=== PATIENT | female | born 1970 | race Caucasian/White ===

== ENCOUNTER → 2020-03-24 15:51 | Outpatient (CLI) | payer OTHER, SELFPAY ==
--- NOTE | ~2020-03-24 | XR_ITS ---
EXAMINATION: XR chest 2V DATE: 03/24/2020 16:12 INDICATION: Shortness of breath TECHNIQUE: Frontal and lateral views of the chest are obtained COMPARISON: 05/02/2015 FINDINGS: The lungs are free of acute opacities. There is no pleural effusion or pneumothorax. The ca rdiomediastinal silhouette is normal. There are changes of anterior fusion procedure at the cervicoth oracic junction. Mild thoracic spondylosis is noted. IMPRESSION: 1. No acute cardiopulmonary abnormality. Reviewed, dictated and finalized at location A. LIDDER
== END ==
DX: R06.00 Dyspnea, unspecified (principal)
CPT/HCPCS: 71046

== ENCOUNTER 2020-06-15 09:25 | Inpatient (IN) | payer OTHER, SELFPAY ==
[2020-06-15] VITALS (13 sets, daily range): BP systolic 78–128; BP diastolic 49–87; PULSE 73–103; RESP 15–19; TEMP 36.3–37; O2SAT 95–99; BMI 24.1
--- NOTE | ~2020-06-15 | XR_ITS ---
EXAMINATION: XR chest 1V DATE: 06/15/2020 10:20 INDICATION: Transient alteration of awareness. TECHNIQUE: A single frontal view of the chest was obtained. COMPARISON: Chest single view 09/03/2011, CT abdomen and pelvis 03/21/2018 FINDINGS: The chest demonstrates clear lungs without pneumonia, pleural effusion, or pneumothorax. Th e heart size is normal. There are changes of anterior fusion procedure in cervical spine. Surgical cl ips in the right upper quadrant are likely from cholecystectomy. IMPRESSION: 1. No acute cardiopulmonary disease. Reviewed, dictated and finalized at location A.
--- NOTE | ~2020-06-15 | CT_ITS ---
EXAMINATION: CT brain wo con INDICATION: Altered mental status COMPARISON: MRI, 10/18/2016 TECHNIQUE: Standard unenhanced head CT. The dose-length product (DLP) was 605.33 mGy-cm. The mA was a djusted according to patient size. Iterative reconstruction technique was employed. FINDINGS: There is no intracranial hemorrhage, acute infarction, or abnormal mass lesion. The ventric les are normal. There is no abnormal mass effect or midline shift. The johnson-white matter differentiat ion is normal. The basal cisterns are patent. The orbits are normal. The paranasal sinuses, mastoids and calvarium are normal. IMPRESSION: 1. No acute intracranial abnormality. Reviewed, dictated and finalized at location B.
--- NOTE | ~2020-06-15 | US_ITS ---
EXAMINATION: US renal BI DATE: 06/15/2020 15:17 INDICATION: Acute kidney injury TECHNIQUE: Multiple grayscale and Doppler ultrasound images of the kidneys were obtained. COMPARISON: None. FINDINGS: The right kidney measures 12.9 x 5.8 x 5.0 cm. The left kidney measures 12.4 x 5.7 x 6.1 cm . The kidneys demonstrate normal parenchymal echogenicity. There is no hydronephrosis. The bladder is normal. IMPRESSION: 1. Normal kidneys without hydronephrosis. Reviewed, dictated and finalized at location B.
--- NOTE | 2020-06-15 09:32 | ECG_ITS ---
Measurements Intervals [place] Rate: 101 P: 21 OH: 116 QRS: -9 QRSD: 104 T: 17 QT: 376 QTc: 487 Interpretive Statements SINUS TACHYCARDIA INCOMPLETE RIGHT BUNDLE BRANCH BLOCK BASELINE ARTIFACT- I, II, III, AVR, AVL, AVF BORDERLINE ECG Electronically Signed On 06-15-2020 9:34:14 CDT by Alex Marie D.O.
[2020-06-15 09:50] LABS: Hematocrit 34.3 % (37.0-47.0); Hemoglobin 13.2 g/dL (12.0-15.0); Mean Corpuscular Hemoglobin 35.8 pg (26-34); Platelet Count Result 188 k/mm3 (150-375); Red Blood Count 3.69 M/mm3 (4.2-5.4); White Blood Count 11.2 K/mm3 (4.5-10.0)
[2020-06-15 10:00] LABS: Mean Corpuscular HGB Conc 38.5 g/dl (32-36)
--- NOTE | 2020-06-15 10:00 | ED.AMS ---
HPI - Altered Mental Status General Chief Complaint: Altered Mental Status Stated Complaint: confused Time Seen by Provider: 06/15/20 09:43 Source: patient and family Mode of arrival: EMS Limitations: altered mental status History of Present Illness HPI narrative: This is a 49 year old female with history of depression, anxiety, RA who presents for evaluation of altered mental status. Patient's is at bedside to give history . He states his daughter found patient laying in bed unresponsive but breathing. They reports her eyes were open and she was staring but she would not respond to them. They did not see convulsions. EMS states patient was combative on their arrival. Patient's states over the past week she has not felt well. She has chronic GI issues and she has been having vomiting and headaches. She denies chest pain, sob, abdominal pain. She reports a mild frontal headache, but she denies focal weakness. Patient is oriented to person and place but she is unable to state her age or year. Her family denies history of seizures. He does report patient drinks almost daily but she does not have history of alcohol withdrawal. Related Data Home Medications Medication Instructions Recorded Confirmed adalimumab [Humira Pen] mg SUBCUT 06/15/20 albuterol sulfate [Ventolin HFA] 2 puff INHALATION Q4-6H PRN 06/15/20 06/15/20 amoxicillin 500 mg PO TID 06/15/20 06/15/20 azelastine 1 spray INTRANASAL DAILY 06/15/20 06/15/20 bupropion HCl 300 mg PO DAILY 06/15/20 06/15/20 colestipol 1 g PO BID 06/15/20 06/15/20 hydroxychloroquine 200 mg PO BID 06/15/20 06/15/20 irbesartan 75 mg PO HS 06/15/20 06/15/20 raoeuk-ndajihss-[id number] [Creon] 1 cap PO TIDWM 06/15/20 06/15/20 ondansetron HCl 4 mg PO BID PRN 06/15/20 06/15/20 Allergies Allergy/AdvReac Type Severity Reaction Status Date / Time No Known Allergies Allergy Verified 06/15/20 15:48 Review of Systems Review of Systems: All systems reviewed & are unremarkable except as noted in HPI and below Cardiovascular: Cardiovascular: Denies chest pain Respiratory: Respiratory: Denies cough Gastrointestinal: Gastrointestinal: Denies abdominal pain, Reports nausea and Reports vomiting Neurologic: Reports headache(s), Denies focal weakness and Denies numbness PMFSH Past Medical History Medical History (Updated 06/15/20 @ 18:48 by Krystle Palacio MD) Alcohol abuse Anxiety Chronic pain syndrome Chronic neck and back pain. Depression Hypertension Pancreatitis (~03/2018) Rheumatoid arthritis Surgical History Surgical History (Updated 06/15/20 @ 14:26 by Vilma Bhatt PA-C) History of appendectomy Complicated by abscess requiring drainage. History of arthroscopy of right knee History of cholecystectomy History of dilation and curettage History of fusion of cervical spine History of fusion of lumbar spine History of sinus surgery Family History Family History Other Breast cancer Diabetes mellitus Heart disease Hypertension Social History Social History (Updated 06/15/20 @ 14:46 by Vilma Bhatt PA-C) Social History: Surrogate decision maker: Lito Taylor . Code status: Full code. Smoking packs per day: 1 Smoking cigarettes per day: 20.0 Years smoked: 20 Smoking pack-years: 20.00 Smoking status: Former smoker Tobacco type: cigarettes Alcohol intake: current Drinks per week: 32 Substance use: former Substance use type: marijuana Other substance usage details: Medical marijuana. Additional living arrangements comments: Patient lives with her in [place]. Additional occupation/education comments: She does not work outside of the home. Gender identity (if verbalized by the patient): Female Spiritual care concerns: No Exam Const: General: alert Other: patient slow to respond but able to state name, place. H
--- NOTE | 2020-06-15 10:10 | PC.NURSE ---
Blood glucose was 176 at 10:10
[2020-06-15] MEDS: SODIUM CHLORIDE 0.9% IV 1,000 ML 999 ML IV CONT (10:11)
[2020-06-15 10:13] LABS: Glucose Point of Care 176 (65-105)
[2020-06-15 10:14] LABS: Atypical Lymphocytes Present; Band Neutrophils Percent 1 % (0-6); Eosinophils Absolute Manual 0.33 K/mm3 (0.02-0.5); Eosinophils Percent Manual 3 % (0-4); Monocytes Absolute Manual 0.67 K/mm3 (0.1-0.90); Monocytes Percent Manual 6 % (3-9); Neutrophils Absolute Manual 6.38 K/mm3 (1.7-7.2); Neutrophils Percent Manual 56 % (46-73); Total Cells Counted 100
[2020-06-15 10:15] LABS: Hypochromasia 2+ (NORMAL)
[2020-06-15 10:17] LABS: Platelet Estimate Adequate (Adequate)
[2020-06-15 10:25] LABS: Add Urine Microscopic? YES; Appearance Urine Clear (Clear); Bacteria Urine Trace /hpf; Bilirubin Urine Negative (Negative); Blood Urine Negative (Negative); Color Urine Yellow (Yellow); Glucose Urine UA Negative (Negative); Ketones Urine Negative (Negative); Leukocyte Esterase Ur Negative LEU/UL (Negative); Mucus Urine Rare /lpf; Nitrate Urine Negative (Negative); Protein Urine 1+ mg/dL (Negative); RBC Urine 0-2 /hpf (0-2); Specific Grav Ur 1.012 (1.001-1.035); Urobilinogen Urine Negative mg/dL (<2.0)
[2020-06-15 10:32] LABS: Amphetamine Screen Urine Negative (Negative); Barbiturate Screen Urine Negative (Negative); Benzodiazepines Screen Urine Negative (Negative); Cannabinoid Screen Urine Negative (Negative); Cocaine Screen Urine Negative (Negative); Methadone Screen Urine Negative (Negative); Opiate Screen Urine Negative (Negative); Phencyclidine Screen Urine Negative (Negative)
[2020-06-15 10:36] LABS: Prothrombin Time 13.5 Seconds (11.1-14.7)
[2020-06-15 10:37] LABS: Partial Thromboplastin Time 25.8 SECONDS (22.3-36.8)
[2020-06-15 11:49] LABS: Alanine Aminotransferase 60 U/L (4-35); Albumin Level 3.9 g/dL (3.5-5.1); Alkaline Phosphatase 166 U/L (38-126); Anion Gap 13 mmol/L (8-16); Aspartate Amino Transferase 114 U/L (14-36); Bilirubin,Total 1.9 mg/dL (0.2-1.3); Blood Urea Nitrogen 74 mg/dL (7-17); Calcium 7.9 mg/dL (8.4-10.2); Carbon Dioxide 23 mmol/L (22-30); Chloride 73 mmol/L (98-107); Creatine Kinase 184 U/L (30-135); Estimated CRCL calculation 16 ml/min; Estimated Glomerular Filt Rate 14; Glucose 120 mg/dL (65-105); Lipase 102 U/L (23-300); Magnesium 1.1 mg/dL (1.6-2.3); Potassium 3.3 mmol/L (3.4-5.0); Sodium 109 mmol/L (137-145)
--- NOTE | 2020-06-15 13:30 | ADMGEN ---
This patient, Natalya Taylor, was admitted to IMU Room 231-01. Patient/family oriented to hospital policies and general routines including ID bracelet, bed and alarms, visiting hours, pain management, procedures, bathroom and other care routines, personal items, smoking policy, room service/diet, and visiting hours. Information on how to activate the Rapid Response Team has been discussed. Patient/Family are encouraged to report perceived risks to care and to ask questions if they do not understand what they are told or what they should do.
--- NOTE | 2020-06-15 14:00 | PM.IMHP ---
H&P: HPI History of Present Illness Date/Time: 06/15/20 14:00 Chief Complaint: Altered mental status. Narrative: This is a 49-year-old female with rheumatoid arthritis, hypertension, and possible alcohol abuse who presented to the emergency department earlier today via EMS from home for evaluation of altered mental status. She does not recall much of the events that happened prior to her arrival to the hospital on as such some of the following is supplemented via a review of her electronic medical records as well as discussions with her , with the patient's permission. The patient has not been feeling well for 7 to 10 days with generalized malaise, fatigue, headaches, and nausea. She had multiple episodes of emesis for about 3 days however that resolved this past weekend. Unfortunately her appetite continues to be poor. When she woke this morning she told her that she was actually feeling quite a bit better and she offered to take their son to school. He told her to stay at home and when he returned she was in bed, but that is not necessarily unusual. Within approximately 30 minutes the patient's daughter found her lying in bed with her eyes staring forward however she was not responding. On EMS arrival the patient was combative and was confused but she is now alert and oriented. She was found to have profound hyponatremia on arrival to the emergency department and she is being admitted in this setting. At this time, the assumption is that the patient probably had a seizure this morning given evidence of tongue bite and postictal state. She does admit to drinking a half a bottle of wine, 5 days a week but she has never had signs or symptoms of alcohol withdrawal and more specifically she has no history of seizures. There were no reports of seizure-like activity according to the daughter who found her unresponsive, and there was no documented incontinence. Aside from an increase in her Irbesartan dose, she has not had any recent changes in medication. It looks like she was prescribed amoxicillin a couple of days ago because she was feeling unwell but she has not taken that today. Currently she is alert and oriented but is still confused as to what happened this morning. She denies headache, auditory visual changes, focal weakness, chest pain, shortness of breath, abdominal pain, and vomiting. She has not noticed a decrease in urine output and also denies dysuria, lightheadedness, and dizziness. Review of Systems Review of Systems: Narrative: Twelve systems were reviewed with pertinent positives and negatives as per HPI. No syncope or near syncope. Currently reports a mild frontal headache. No auditory visual changes. She denies focal weakness and paresthesias. No recent cold or flu symptoms. She denies chest pain pleuritic pain. No shortness of breath or cough. She continues to have mild nausea but is hungry at this time. No vomiting for the last several days. She denies diarrhea. No dysuria or hematuria. Except as documented, all other systems were reviewed and are negative. [facility] Past Medical History Medical History Alcohol abuse Anxiety Chronic pain syndrome Chronic neck and back pain. Depression Hypertension Pancreatitis (~03/2018) Rheumatoid arthritis Surgical History Surgical History (Updated 06/15/20 @ 14:26 by Vilma Bhatt PA-C) History of appendectomy Complicated by abscess requiring drainage. History of arthroscopy of right knee History of cholecystectomy History of dilation and curettage History of fusion of cervical spine History of fusion of lumbar spine History of sinus surgery Family History Family History Other Breast cancer Diabetes mellitus Heart disease Hypertension Social History Social History (Updated 06/15/20 @ 21:26 by Vilma Bhatt PA-C) Social Hist
[2020-06-15 14:32] LABS: Ethanol < 10 mg/dL (<10); Lactic Acid Reflex 0.7 mmol/L (0.7-2.1)
[2020-06-15 14:54] LABS: Anion Gap 9 mmol/L (8-16); Blood Urea Nitrogen 69 mg/dL (7-17); Calcium 7.9 mg/dL (8.4-10.2); Carbon Dioxide 29 mmol/L (22-30); Chloride 75 mmol/L (98-107); Estimated CRCL calculation 15 ml/min; Estimated Glomerular Filt Rate 13; Glucose 112 mg/dL (65-105); Phosphorus 2.7 mg/dL (2.5-4.5); Potassium 3.2 mmol/L (3.4-5.0); Sodium 113 mmol/L (137-145)
--- NOTE | 2020-06-15 14:57 | P.CONNP_ITS ---
Assessment and Plan Assessment and plan (1) Hyponatremia: Code(s): E87.1 - Hypo-osmolality and hyponatremia Status: Acute Assessment and Plan: * presumably acute -- sodium was normal about a year ago * etiology not clear -- there is some concern she may have had a seizure - volume depletion (nausea and vomiting for a week) - beer potomania - possible SIADH * most recent sodium already better -- due to normal saline given in ER versus self-correction(?) * check urine electrolytes, serum/urine osmolality, TSH, and cortisol as well as SPE and UPE * follow serial sodium levels * goal of therapy for sodium correction is a change of 4 - 6mmol/L (and no more than 8mmol/L) in 24 hours * may require 3% saline (2) Acute kidney injury: Code(s): N17.9 - Acute kidney failure, unspecified Status: Acute Assessment and Plan: * etiology? - possibly relative hypotension compounded by ARB use? - volume depletion? - other? * check renal ultrasound * follow-up on urine studies * consider IVFs depending on the trend of sodium level (3) Altered mental status: Code(s): R41.82 - Altered mental status, unspecified Status: Acute Assessment and Plan: * clinically better at this time * likely secondary to #1 and #2 * possible post-ictal state on admission * follow mentation (4) Hypokalemia: Code(s): E87.6 - Hypokalemia Status: Acute Assessment and Plan: * due to poor oral intake along with low magnesium * replete cautiously given NORA * replete magnesium PRN (5) Hypertension: Code(s): I10 - Essential (primary) hypertension Status: Chronic Assessment and Plan: * reasonable control at this time * hold ARB in the setting of #2 * follow hemodynamics Will continue to follow. History of Present Illness Reason for Consult Consult date: 06/15/20 Reason for consult: acute renal failure and hyponatremia Chief Complaint Chief complaint: HYPONATREMIA,ACUTE RENAL FAILURE,POSSIBLE SEIZURES History of Present Illness Narrative: The brittaniet is a 49-year-old [facility] female with a past medical history as outlined below who presented to [facility] ER via EMS for further evaluation of altered mental status. Unfortunately, the patient does not recall much of the events that led to her presentation to the emergency room and hence most of the information I have obtained is from review of the electronic medical record and discussion with the ER physician who attended to the patient. Apparently, the patient's daughter found the patient lying in bed with her eyes staring forward and unresponsive. Despite multiple attempts to wake her up , she would not do so and hence 911 was called. On arrival by EMS, the patient was apparently combative and confused. However, by the time of her arrival to the emergency room, her mental status had improved to some degree but she was still not at her baseline. By the time of her arrival to the floor, her mental status seemed to be back to baseline per my discussion with nursing. The p atient states that over the last week or so she has not been feeling well with symptoms of malaise, nausea and vomiting, and sporadic headaches. She reports that she has been eating and drinking okay aside from the fact that she has the nausea and vomiting. There was some concern that she has a history of alcohol abuse but there have never been any issues or problems with regard to alcohol withdrawal or any seiz
--- NOTE | 2020-06-15 14:57 | PM.CNNEP ---
Assessment and Plan Assessment and plan (1) Hyponatremia: Code(s): E87.1 - Hypo-osmolality and hyponatremia Status: Acute Assessment and Plan: presumably acute -- sodium was normal about a year ago etiology not clear -- there is some concern she may have had a seizure - volume depletion (nausea and vomiting for a week) - beer potomania - possible SIADH most recent sodium already better -- due to normal saline given in ER versus self-correction(?) check urine electrolytes, serum/urine osmolality, TSH, and cortisol as well as SPE and UPE follow serial sodium levels goal of therapy for sodium correction is a change of 4 - 6mmol/L (and no more than 8mmol/L) in 24 hours may require 3% saline (2) Acute kidney injury: Code(s): N17.9 - Acute kidney failure, unspecified Status: Acute Assessment and Plan: etiology? - possibly relative hypotension compounded by ARB use? - volume depletion? - other? check renal ultrasound follow-up on urine studies consider IVFs depending on the trend of sodium level (3) Altered mental status: Code(s): R41.82 - Altered mental status, unspecified Status: Acute Assessment and Plan: clinically better at this time likely secondary to #1 and #2 possible post-ictal state on admission follow mentation (4) Hypokalemia: Code(s): E87.6 - Hypokalemia Status: Acute Assessment and Plan: due to poor oral intake along with low magnesium replete cautiously given NORA replete magnesium PRN (5) Hypertension: Code(s): I10 - Essential (primary) hypertension Status: Chronic Assessment and Plan: reasonable control at this time hold ARB in the setting of #2 follow hemodynamics Will continue to follow. History of Present Illness Reason for Consult Consult date: 06/15/20 Reason for consult: acute renal failure and hyponatremia Chief Complaint Chief complaint: HYPONATREMIA,ACUTE RENAL FAILURE,POSSIBLE SEIZURES History of Present Illness Narrative: The lanny is a 49-year-old [facility] female with a past medical history as outlined below who presented to [facility] ER via EMS for further evaluation of altered mental status. Unfortunately, the patient does not recall much of the events that led to her presentation to the emergency room and hence most of the information I have obtained is from review of the electronic medical record and discussion with the ER physician who attended to the patient. Apparently, the patient's daughter found the patient lying in bed with her eyes staring forward and unresponsive. Despite multiple attempts to wake her up , she would not do so and hence 911 was called. On arrival by EMS, the patient was apparently combative and confused. However, by the time of her arrival to the emergency room, her mental status had improved to some degree but she was still not at her baseline. By the time of her arrival to the floor, her mental status seemed to be back to baseline per my discussion with nursing. The patient states that over the last week or so she has not been feeling well with symptoms of malaise, nausea and vomiting, and sporadic headaches. She reports that she has been eating and drinking okay aside from the fact that she has the nausea and vomiting. There was some concern that she has a history of alcohol abuse but there have never been any issues or problems with regard to alcohol withdrawal or any seizure like activity. Workup and evaluation emergency room found the patient to be relatively hypotensive in the 100 systolic range and as already mentioned, somewhat confused and combative. Routine blood tests demonstrated marked abnormalities with regard to a low sodium level of 109 millimoles per L as well as acute kidney injury/acute renal failure with a BUN and creatinine quite elev
[2020-06-15 15:25] LABS: Magnesium 1.1 mg/dL (1.6-2.3)
[2020-06-15 15:33] LABS: Hemoglobin A1C 4.9 % (<5.7)
[2020-06-15 15:57] LABS: Hepatitis B Surface Antigen Negative (Negative); Thyroid Stimulating Hormone Reflex 0.284 uIU/mL (0.465-4.68)
[2020-06-15 16:03] LABS: HAV RESULT Negative (Negative); Hepatitis B Core IgM Result Negative (Negative)
[2020-06-15 16:15] LABS: Hepatitis C Virus Antibody Negative (Negative)
[2020-06-15] MEDS: POTASSIUM CHLORIDE 20 MEQ TABLET PO (16:20)
[2020-06-15] MEDS: THIAMINE HCL 200 MG/2 ML VIAL 100 MG IV PUSH (16:21)
[2020-06-15 16:57] LABS: Glucose Point of Care 104 (65-105)
[2020-06-15 17:07] LABS: Free T4 Free Thyroxine Reflex 1.31 ng/dL (0.78-2.19)
[2020-06-15 17:50] LABS: Creatinine Urine 33.6 mg/dL; Total Protein Urine Random 14 mg/dL; Ur Ttl Prot Creatinine Ratio 0.42 mg/mg (0-0.20)
[2020-06-15] MEDS: MAGNESIUM SULF 2 GM/WATER 50ML 2 GM/50 ML BAG IVPB (18:03)
[2020-06-15 18:10] LABS: Sodium Urine Random 15 meq/L
[2020-06-15 19:35] LABS: Anion Gap 10 mmol/L (8-16); Blood Urea Nitrogen 67 mg/dL (7-17); Calcium 8.6 mg/dL (8.4-10.2); Carbon Dioxide 26 mmol/L (22-30); Chloride 79 mmol/L (98-107); Creatine Kinase 178 U/L (30-135); Estimated CRCL calculation 17 ml/min; Estimated Glomerular Filt Rate 16; Glucose 100 mg/dL (65-105); Potassium 3.3 mmol/L (3.4-5.0); Sodium 115 mmol/L (137-145)
[2020-06-15 20:19] LABS: Glucose Point of Care 102 (65-105)
[2020-06-15 20:30] LABS: Eosinophil Urine None Seen % (None Seen)
[2020-06-15 22:40] LABS: Sodium 117 mmol/L (137-145)
[2020-06-15] MEDS: DEXTROSE 5% 1,000 ML 1,000 ML 200 ML IV CONT (23:27)
[2020-06-16] VITALS (19 sets, daily range): BP systolic 84–127; BP diastolic 58–82; PULSE 68–88; RESP 14–18; TEMP 36.1–36.4; O2SAT 92–100
[2020-06-16 02:16] LABS: Creatinine Urine 80.7 mg/dL
[2020-06-16 02:28] LABS: Sodium Urine Random 24 meq/L
[2020-06-16 02:30] LABS: Total Protein Urine Random 15 mg/dL
[2020-06-16 05:14] LABS: Basophils Percent Auto 0.5 % (0.2-1.2); Eosinophils Absolute Auto 0.4 K/mm3 (0-0.3); Hematocrit 34.9 % (37.0-47.0); Hemoglobin 13.1 g/dL (12.0-15.0); Immature Granulocyte Absolute 0.17 K/mm3 (0.00-0.031); Immature Granulocyte Percent A 2.2 % (0-0.5); Lymphocytes Absolute Auto 2.25 K/mm3 (0.9-3.2); Lymphocytes Percent Auto 28.9 % (18.3-44.2); Mean Corpuscular HGB Conc 37.5 g/dl (32-36); Mean Corpuscular Hemoglobin 35.8 pg (26-34); Mean Corpuscular Volume 95.4 fl (80-100); Mean Platelet Volume 10.1 fl (7.4-10.4); Monocytes Absolute Auto 1.2 K/mm3 (0.1-0.6); Monocytes Percent Auto 15.3 % (2.6-8.5); Neutrophils Absolute Auto 3.8 K/mm3 (1.3-6.7); Neutrophils Percent Auto 48.1 % (45.5-73.1); Platelet Count Result 162 k/mm3 (150-375); Red Blood Count 3.66 M/mm3 (4.2-5.4); White Blood Count 7.8 K/mm3 (4.5-10.0)
[2020-06-16 05:25] LABS: Prothrombin Time 13.6 Seconds (11.1-14.7)
[2020-06-16 05:26] LABS: Partial Thromboplastin Time 27.1 SECONDS (22.3-36.8)
[2020-06-16 05:35] LABS: Alanine Aminotransferase 64 U/L (4-35); Albumin Level 4.4 g/dL (3.5-5.1); Alkaline Phosphatase 189 U/L (38-126); Anion Gap 12 mmol/L (8-16); Aspartate Amino Transferase 121 U/L (14-36); Bilirubin,Total 2.1 mg/dL (0.2-1.3); Blood Urea Nitrogen 60 mg/dL (7-17); Calcium 9.4 mg/dL (8.4-10.2); Carbon Dioxide 27 mmol/L (22-30); Chloride 84 mmol/L (98-107); Creatine Kinase 127 U/L (30-135); Estimated CRCL calculation 20 ml/min; Estimated Glomerular Filt Rate 19; Glucose 106 mg/dL (65-105); Magnesium 2.3 mg/dL (1.6-2.3); Phosphorus 2.8 mg/dL (2.5-4.5); Potassium 3.1 mmol/L (3.4-5.0); Sodium 123 mmol/L (137-145)
[2020-06-16 06:23] LABS: Thyroid Stimulating Hormone Reflex 0.283 uIU/mL (0.465-4.68)
[2020-06-16] MEDS: DEXTROSE 5% 1,000 ML 1,000 ML 200 ML IV CONT (06:37)
[2020-06-16] MEDS: POTASSIUM CHLORIDE 20 MEQ TABLET PO ×2 (06:56→15:35)
[2020-06-16] MEDS: DESMOPRESSIN ACETATE 4 MCG/ML AMP 2 MCG SUB-Q (06:56)
[2020-06-16] MEDS: FOLIC ACID 1 MG TABLET PO (08:26)
[2020-06-16] MEDS: THERAPEUTIC MULTIVITAMINS/MINERALS TAB (*BKC) 1 TABLET PO (08:26)
[2020-06-16] MEDS: THIAMINE HCL 100 MG TABLET PO (08:26)
[2020-06-16] MEDS: LIPASE/AMYLASE/PROTEASE 12,000 UNITS CAP 1 CAP PO ×3 (08:26→17:54)
[2020-06-16] MEDS: HYDROXYCHLOROQUINE SULFATE 200 MG TABLET PO ×2 (08:36→17:54)
[2020-06-16 08:46] LABS: Free T4 Free Thyroxine Reflex 1.05 ng/dL (0.78-2.19)
[2020-06-16 09:10] LABS: Glucose Point of Care 169 (65-105)
[2020-06-16 09:41] LABS: Total Triiodothyronine (T3) 0.73 NG/ML (0.97-1.69)
[2020-06-16 10:57] LABS: Sodium 118 mmol/L (137-145)
--- NOTE | 2020-06-16 11:43 | PM.IMPN ---
Progress Note: A&P Assessment and Plan (1) Altered mental status: Code(s): R41.82 - Altered mental status, unspecified Status: Acute Assessment and Plan: RESOLVED LIKELY TO BE MULTIFACTORIAL PATIENT WITH SIGNIFICANT HISTORY FOR ALCOHOL INTAKE (2) Hyponatremia: Code(s): E87.1 - Hypo-osmolality and hyponatremia Status: Acute Assessment and Plan: IMPROVED NEPHROLOGY FOLLOWING (3) Alcohol abuse: Code(s): F10.10 - Alcohol abuse, uncomplicated Status: Acute Assessment and Plan: CIKS PROTOCOL ONGOING (4) Hypomagnesemia: Code(s): E83.42 - Hypomagnesemia Status: Acute Assessment and Plan: REPLACE NEEDED (5) Hypokalemia: Code(s): E87.6 - Hypokalemia Status: Acute Assessment and Plan: REPLACE NEEDED (6) Acute kidney injury: Code(s): N17.9 - Acute kidney failure, unspecified Status: Acute Assessment and Plan: LIKELY SECONDARY TO PRE RENAL AZOTEMIA CONTINUE TO MONITOR BUN AND CREATININE NEPHROLOGY ON CONSULT (7) Elevated LFTs: Code(s): R79.89 - Other specified abnormal findings of blood chemistry Status: Acute Assessment and Plan: LIKELY SECONDARY TO ALCOHOL INTAKE (8) Hypertension: Code(s): I10 - Essential (primary) hypertension Status: Chronic Assessment and Plan: CONTINUE TO MONITOR ON IRBESARTAN (9) Rheumatoid arthritis: Code(s): M06.9 - Rheumatoid arthritis, unspecified Status: Chronic Assessment and Plan: ON HUMIRA ON HYDROXYCHLOROQUINE (10) Seizure: Code(s): R56.9 - Unspecified convulsions Status: Acute Assessment and Plan: QUESTIONABLE PATIENT FOUND STARING AND UNRESPONSIVE HAS NO RECOLLECTION OF THIS NO WITNESSED SEIZURE Subjective Date/time seen: 06/16/20 11:43 I FEEL FINE Review of Systems Review of Systems: Narrative: THE PATIENT HAS NO COMPLAINTS AT THIS TIME Exam Const: General: comfortable, no acute distress, well developed, alert and awake Nutritional Appearance: average body habitus Orientation/consciousness: patient oriented x3 HENMT: Head: normal to inspection, normocephalic and atraumatic Ears: hearing grossly normal bilaterally Face and sinus: normal facial exam Eyes: General: appearance normal, both eyes and all related structures Pupils: Equal, round and reactive pupils present EOM: EOMs intact bilaterally Neck: Neck: full ROM, no lymphadenopathy and no JVD Thyroid: thyroid normal Lymphatic: no lymphadenopathy noted Resp: Effort & Inspection: normal respiratory effort and able to speak in complete sentences Auscultation: clear to auscultation bilaterally Cardio: Jugular venous distension: no JVD Rate: regular rate Rhythm: regular rhythm Heart sounds: S1 normal heart sound present and S2 normal heart sound present GI: GI Palp: Yes Soft to palpation and Yes No hepatosplenomegaly present : General: Yes deferred Skin: Rashes: no rashes Wounds: no wounds Neuro: General: patient oriented x3 and CN's II-XI intact bilaterally Cranial nerves: Yes CN's II-XII intact bilaterally and Yes Equal, round and reactive pupils present Cognition (Neuro): normal cognition Speech: normal speech Gait exam (Neuro): Normal gait present Motor exam (neuro): 5/5 motor strength present throughout Extrem: General: normal to inspection, full ROM, no joint enlargement and no pedal edema Objective Data Vital Signs Vital Signs: Vital Signs - 24 hr 06/15/20 13:08 06/15/20 13:15 06/15/20 13:30 Temperature 98.2 F Pulse Rate 78 80 75 Respiratory Rate 15 16 Blood Pressure 109/78 116/81 Pulse Oximetry 99 99 06/15/20 14:00 06/15/20 16:00 06/15/20 18:00 Temperature 98.3 F Pulse Rate 75 76 74 Respiratory Rate 17 Blood Pressure 99/69 L Pulse Oximetry 97 06/15/20 19:49 06/15/20 20:00 06/15/20 22:00 Temperature 98.6 F Pulse Rate 80 76 78 Respiratory Rate 16 Blo
[2020-06-16 12:08] LABS: Glucose Point of Care 149 (65-105)
--- NOTE | 2020-06-16 13:15 | P.PNNP_ITS ---
Progress Note: A&P Assessment and Plan (1) Hyponatremia: Code(s): E87.1 - Hypo-osmolality and hyponatremia Status: Acute Assessment and Plan: * presumably acute -- sodium was normal about a year ago * etiology not clear -- there is some concern she may have had a seizure - volume depletion (nausea and vomiting for a week) - beer potomania - possible SIADH * evaluation noted: - urine sodium suggest prerenal azotemia - serum/urine osmolality and SPE/UPE pending - TSH and cortisol a little on the low side -- check free T4 and cosyntropin stim test * goal of therapy for sodium correction is a change of 4 - 6mmol/L (and no more than 8mmol/L) in 24 hours - evidence of overcorrection in the last 24hrs - rate of change in sodium slowed down with D5W and DDAVP * follow repeat/serial sodium levels (2) Acute kidney injury: Code(s): N17.9 - Acute kidney failure, unspecified Status: Acute Assessment and Plan: * etiology? - possibly relative hypotension compounded by ARB use? - volume depletion? - other? * renal ultrasound and urine studies * improvement noted * holding off on IVFs due to sodium level (3) Altered mental status: Code(s): R41.82 - Altered mental status, unspecified Status: Acute Assessment and Plan: * clinically better at this time * likely secondary to #1 and #2 * possible post-ictal state on admission * follow mentation (4) Hypokalemia: Code(s): E87.6 - Hypokalemia Status: Acute Assessment and Plan: * due to poor oral intake along with low magnesium * replete cautiously given NORA * replete magnesium PRN (5) Hypertension: Code(s): I10 - Essential (primary) hypertension Status: Chronic Assessment and Plan: * reasonable control at this time * hold ARB in the setting of #2 * follow hemodynamics Will continue to follow. Subjective Date/time seen: 06/16/20 13:15 No acute issues or problems to report at this time; no events overnight or earlier this AM; sodium correcting too fast so given DDAVP and D5W IVFs to slow correction down; no other concerns noted. Exam Narrative: Exam Narrative: General: WD/WN male in NAD Heart: normal S1 and S2; no rub Lungs: clear to auscultation Abdomen: soft, nontender, nondistended, positive bowel sounds Extremities: no cyanosis or clubbing; no edema Skin: warm and dry Objective Data Vital Signs Vital Signs: Vital Signs Temp Pulse Resp BP Pulse Ox 06/16/20 12:00 36.3 C L 87 16 103/76 99 06/16/20 10:00 79 06/16/20 09:10 78 18 92 06/16/20 08:30 88 06/16/20 08:00 36.4 C 82 18 125/68 100 06/16/20 06:00 72 06/16/20 05:56 88/60 L 06/16/20 04:00 36.2 C L 74 14 84/63 L 98 06/16/20 02:37 96/58 L 06/16/20 02:00 68 06/16/20 00:59 107/62 06/16/20 00:00 74 06/15/20 23:50 78/49 L 06/15/20 23:41 36.3 C L 73 16 78/49 L 96 06/15/20 22:00 78 06/15/20 20:00 76 06/15/20 19:49 37.0 C 80 16 100/66 97 06/15/20 18:00 74 06/15/20 16:00 36.8 C 76 17 99/69 L 97 Int
--- NOTE | 2020-06-16 13:15 | PM.PNNEP ---
Progress Note: A&P Assessment and Plan (1) Hyponatremia: Code(s): E87.1 - Hypo-osmolality and hyponatremia Status: Acute Assessment and Plan: presumably acute -- sodium was normal about a year ago etiology not clear -- there is some concern she may have had a seizure - volume depletion (nausea and vomiting for a week) - beer potomania - possible SIADH evaluation noted: - urine sodium suggest prerenal azotemia - serum/urine osmolality and SPE/UPE pending - TSH and cortisol a little on the low side -- check free T4 and cosyntropin stim test goal of therapy for sodium correction is a change of 4 - 6mmol/L (and no more than 8mmol/L) in 24 hours - evidence of overcorrection in the last 24hrs - rate of change in sodium slowed down with D5W and DDAVP follow repeat/serial sodium levels (2) Acute kidney injury: Code(s): N17.9 - Acute kidney failure, unspecified Status: Acute Assessment and Plan: etiology? - possibly relative hypotension compounded by ARB use? - volume depletion? - other? renal ultrasound and urine studies improvement noted holding off on IVFs due to sodium level (3) Altered mental status: Code(s): R41.82 - Altered mental status, unspecified Status: Acute Assessment and Plan: clinically better at this time likely secondary to #1 and #2 possible post-ictal state on admission follow mentation (4) Hypokalemia: Code(s): E87.6 - Hypokalemia Status: Acute Assessment and Plan: due to poor oral intake along with low magnesium replete cautiously given NORA replete magnesium PRN (5) Hypertension: Code(s): I10 - Essential (primary) hypertension Status: Chronic Assessment and Plan: reasonable control at this time hold ARB in the setting of #2 follow hemodynamics Will continue to follow. Subjective Date/time seen: 06/16/20 13:15 No acute issues or problems to report at this time; no events overnight or earlier this AM; sodium correcting too fast so given DDAVP and D5W IVFs to slow correction down; no other concerns noted. Exam Narrative: Exam Narrative: General: WD/WN male in NAD Heart: normal S1 and S2; no rub Lungs: clear to auscultation Abdomen: soft, nontender, nondistended, positive bowel sounds Extremities: no cyanosis or clubbing; no edema Skin: warm and dry Objective Data Vital Signs Vital Signs: Vital Signs Temp Pulse Resp BP Pulse Ox 06/16/20 12:00 36.3 C L 87 16 103/76 99 06/16/20 10:00 79 06/16/20 09:10 78 18 92 06/16/20 08:30 88 06/16/20 08:00 36.4 C 82 18 125/68 100 06/16/20 06:00 72 06/16/20 05:56 88/60 L 06/16/20 04:00 36.2 C L 74 14 84/63 L 98 06/16/20 02:37 96/58 L 06/16/20 02:00 68 06/16/20 00:59 107/62 06/16/20 00:00 74 06/15/20 23:50 78/49 L 06/15/20 23:41 36.3 C L 73 16 78/49 L 96 06/15/20 22:00 78 06/15/20 20:00 76 06/15/20 19:49 37.0 C 80 16 100/66 97 06/15/20 18:00 74 06/15/20 16:00 36.8 C 76 17 99/69 L 97 Intake/Output Intake/Output: Intake & Output 06/13/20 06/14/20 06/15/20 06/16/20 23:59 23:59 23:59 23:59 Intake Total 1050 2040 Output Total 1400 750 Balance -350 1290 Meds/Results Medications: Active Medications Generic Name Dose Route Start Last Admin Trade Name Freq PRN Reason Stop Dose Admin Acetaminophen 650 mg 06/16/20 13:39 Acetaminophen 325 Mg Tablet PO Q6H PRN Mild Pain (1-3) or Fever Albuterol 2 puff 06/15/20 21:34 Albuterol Sulfate (*Sp) Aerosol 1 Puff INHALATION Q4-6H PRN Shortness Of Breath Lipase/Protease/Amylase 1 cap 06/16/20 08:00 06/16/20 12:23 Lipase/Amylase/Protease 12,000 Units Cap PO 1 ca
--- NOTE | 2020-06-16 13:49 | PCRCNOTE ---
Talked with patient about Home CPAP unit. Pt would rather not wear ours, she will have her bring her unit in this evening.
[2020-06-16] MEDS: ACETAMINOPHEN 325 MG TABLET 650 MG PO (14:25)
[2020-06-16 14:30] LABS: Magnesium 1.8 mg/dL (1.6-2.3); Potassium 3.3 mmol/L (3.4-5.0)
[2020-06-16 14:36] LABS: Sodium 115 mmol/L (137-145)
[2020-06-16 17:17] LABS: Glucose Point of Care 134 (65-105)
[2020-06-16 18:35] LABS: Sodium 115 mmol/L (137-145)
[2020-06-16] MEDS: SODIUM CHLORIDE 0.9% IV 1,000 ML 60 ML IV CONT (18:46)
[2020-06-16 20:59] LABS: Glucose Point of Care 139 (65-105)
[2020-06-16 22:43] LABS: Sodium 114 mmol/L (137-145)
[2020-06-17] VITALS (9 sets, daily range): BP systolic 110–129; BP diastolic 70–80; PULSE 60–95; RESP 12–16; TEMP 36.6–36.8; O2SAT 96–100
[2020-06-17 00:55] LABS: Sodium 115 mmol/L (137-145)
[2020-06-17] MEDS: SODIUM CHLORIDE 3% 500 ML 60 ML IV CONT (02:09)
[2020-06-17] MEDS: WATER FOR IRRIGATION, STERILE 1,000 ML BOTTLE 1000 ML (04:11)
[2020-06-17 05:40] LABS: Albumin Level 3.5 g/dL (3.5-5.1); Anion Gap 2 mmol/L (8-16); Blood Urea Nitrogen 30 mg/dL (7-17); Calcium 8.1 mg/dL (8.4-10.2); Carbon Dioxide 30 mmol/L (22-30); Chloride 86 mmol/L (98-107); Estimated CRCL calculation 40 ml/min; Estimated Glomerular Filt Rate 43; Glucose 108 mg/dL (65-105); Magnesium 1.6 mg/dL (1.6-2.3); Phosphorus 1.8 mg/dL (2.5-4.5); Potassium 3.6 mmol/L (3.4-5.0); Sodium 118 mmol/L (137-145)
[2020-06-17 08:02] LABS: Glucose Point of Care 106 (65-105)
[2020-06-17] MEDS: LIPASE/AMYLASE/PROTEASE 12,000 UNITS CAP 1 CAP PO ×3 (08:45→16:25)
[2020-06-17] MEDS: FOLIC ACID 1 MG TABLET PO (08:45)
[2020-06-17] MEDS: THERAPEUTIC MULTIVITAMINS/MINERALS TAB (*BKC) 1 TABLET PO (08:45)
[2020-06-17] MEDS: HYDROXYCHLOROQUINE SULFATE 200 MG TABLET PO ×2 (08:45→16:25)
[2020-06-17] MEDS: THIAMINE HCL 100 MG TABLET PO (08:45)
[2020-06-17 10:25] LABS: Sodium 119 mmol/L (137-145)
--- NOTE | 2020-06-17 10:58 | PM.IMPN ---
Progress Note: A&P Assessment and Plan (1) Hyponatremia: Code(s): E87.1 - Hypo-osmolality and hyponatremia Status: Acute Assessment and Plan: Trending up Nephrology managing Follow Nephrology recommendations (2) Seizure: Code(s): R56.9 - Unspecified convulsions Status: Acute Assessment and Plan: Questionable seizure as family never saw her having tonic clonic movements Patient was staring with her eyes rolled back No seizures have been witnessed thus far (3) Rheumatoid arthritis: Code(s): M06.9 - Rheumatoid arthritis, unspecified Status: Chronic Assessment and Plan: Patient is on Humira and hydroxychloroquine (4) Alcohol abuse: Code(s): F10.10 - Alcohol abuse, uncomplicated Status: Acute Assessment and Plan: [facility] protocol (5) Hypomagnesemia: Code(s): E83.42 - Hypomagnesemia Status: Acute Assessment and Plan: Replace as needed (6) Hypokalemia: Code(s): E87.6 - Hypokalemia Status: Acute Assessment and Plan: Replace as needed (7) Acute kidney injury: Code(s): N17.9 - Acute kidney failure, unspecified Status: Acute Assessment and Plan: BUN and creatinine trending down (8) Elevated LFTs: Code(s): R79.89 - Other specified abnormal findings of blood chemistry Status: Acute Assessment and Plan: likely secondary to alcohol intake (9) Hypertension: Code(s): I10 - Essential (primary) hypertension Status: Chronic Assessment and Plan: stable (10) Altered mental status: Code(s): R41.82 - Altered mental status, unspecified Status: Acute Assessment and Plan: resolved patient is now back to her baseline Subjective Date/time seen: 06/17/20 10:58 I feel well Review of Systems Review of Systems: Narrative: Patient denies any complaints at the time of my visit Exam Narrative: Exam Narrative: Patient is sitting in chair well-appearing Const: General: comfortable, no acute distress, well developed, alert and awake Nutritional Appearance: average body habitus Orientation/consciousness: patient oriented x3 HENMT: Head: normal to inspection, normocephalic and atraumatic Ears: hearing grossly normal bilaterally Face and sinus: normal facial exam Eyes: General: appearance normal, both eyes and all related structures Pupils: Equal, round and reactive pupils present EOM: EOMs intact bilaterally Neck: Neck: full ROM, no lymphadenopathy and no JVD Thyroid: thyroid normal Lymphatic: no lymphadenopathy noted Resp: Effort & Inspection: normal respiratory effort and able to speak in complete sentences Auscultation: clear to auscultation bilaterally Cardio: Jugular venous distension: no JVD Rate: regular rate Rhythm: regular rhythm Heart sounds: S1 normal heart sound present and S2 normal heart sound present GI: GI Palp: Yes Soft to palpation and Yes No hepatosplenomegaly present : General: Yes deferred Skin: Rashes: no rashes Wounds: no wounds Neuro: General: patient oriented x3 and CN's II-XI intact bilaterally Cranial nerves: Yes CN's II-XII intact bilaterally and Yes Equal, round and reactive pupils present Cognition (Neuro): normal cognition Speech: normal speech Gait exam (Neuro): Normal gait present Motor exam (neuro): 5/5 motor strength present throughout Extrem: General: normal to inspection, full ROM, no joint enlargement and no pedal edema Objective Data Vital Signs Vital Signs: Vital Signs - 24 hr 06/16/20 12:00 06/16/20 14:00 06/16/20 16:00 Temperature 97.3 F L 97.3 F L Pulse Rate 87 77 74 Respiratory Rate 16 18 Blood Pressure 103/76 105/76 Pulse Oximetry 99 99 06/16/20 16:35 06/16/20 18:00 06/16/20 20:00 Temperature 96.9 F L Pulse Rate 74 73 73 Respiratory Rate 16 Blood Pressure 127/82 Pulse Oximetry 100 06/16/20 22:00 06/16/20 23:40 06/17/20 00:00 Temperatu
[2020-06-17 11:29] LABS: Anion Gap 10 mmol/L (8-16); Blood Urea Nitrogen 28 mg/dL (7-17); Carbon Dioxide 24 mmol/L (22-30); Chloride 85 mmol/L (98-107); Estimated CRCL calculation 43 ml/min; Estimated Glomerular Filt Rate 48; Glucose 198 mg/dL (65-105); Magnesium 1.6 mg/dL (1.6-2.3); Potassium 3.6 mmol/L (3.4-5.0); Sodium 119 mmol/L (137-145)
[2020-06-17 12:01] LABS: Glucose Point of Care 159 (65-105)
--- NOTE | 2020-06-17 12:13 | P.PNNP_ITS ---
Progress Note: A&P Assessment and Plan (1) Hyponatremia: Code(s): E87.1 - Hypo-osmolality and hyponatremia Status: Acute Assessment and Plan: * presumably acute -- sodium was normal about a year ago * etiology not clear -- there is some concern she may have had a seizure - volume depletion (nausea and vomiting for a week) - beer potomania - possible SIADH * evaluation noted: - urine sodium suggest prerenal azotemia - serum/urine osmolality and SPE/UPE pending - TSH and cortisol a little on the low side -- but free T4 okay but consider cosyntropin stim test * goal of therapy for sodium correction is a change of 4 - 6mmol/L (and no more than 8mmol/L) in 24 hours - evidence of overcorrection 24hrs after admission -- rate of change in sodium slowed down with D5W and DDAVP - rate of correction maintained in the last 24 hours - 3% saline given overnight - added fluid restrictiom * follow repeat/serial sodium levels (2) Acute kidney injury: Code(s): N17.9 - Acute kidney failure, unspecified Status: Acute Assessment and Plan: * resolving * etiology? - possibly relative hypotension compounded by ARB use? - volume depletion? - other? * renal ultrasound and urine studies noted * improvement noted * holding off on IVFs due to sodium level (3) Altered mental status: Code(s): R41.82 - Altered mental status, unspecified Status: Acute Assessment and Plan: * clinically better at this time * likely secondary to #1 and #2 * possible post-ictal state on admission * follow mentation (4) Hypokalemia: Code(s): E87.6 - Hypokalemia Status: Acute Assessment and Plan: * resolving * due to poor oral intake along with low magnesium * replete cautiously given NORA * replete magnesium PRN (5) Hypertension: Code(s): I10 - Essential (primary) hypertension Status: Chronic Assessment and Plan: * reasonable control at this time * hold ARB in the setting of #2 * follow hemodynamics Will continue to follow. Subjective Date/time seen: 06/17/20 12:13 Continues to do well; eating and drinking; started of fluid restriction; given 3% saline overnight to help augment sodium; renal function appears to be improving as well with stability in K+; no apparent distress voiced at this time. Exam Narrative: Exam Narrative: General: WD/WN female in NAD Heart: normal S1 and S2; no rub Lungs: clear to auscultation Abdomen: soft, nontender, nondistended, positive bowel sounds Extremities: no cyanosis or clubbing; no edema Skin: warm and intact Objective Data Vital Signs Vital Signs: Vital Signs Temp Pulse Resp BP Pulse Ox 06/17/20 12:00 36.8 C 82 12 129/79 96 06/17/20 10:00 69 06/17/20 08:45 61 06/17/20 08:00 36.6 C 95 12 114/78 99 06/17/20 05:53 60 06/17/20 04:00 36.6 C 66 16 110/74 98 06/17/20 02:00 71 06/17/20 00:00 36.6 C 73 16 113/70 98 06/16/20 23:40 98 06/16/20 22:00 71 06/16/20 20:00 36.1 C L 73 16 127/82 100 06/16/20 18:00 73 06/16/20 16:35 74 06/16/20 16:00 36.3 C L 7
--- NOTE | 2020-06-17 12:13 | PM.PNNEP ---
Progress Note: A&P Assessment and Plan (1) Hyponatremia: Code(s): E87.1 - Hypo-osmolality and hyponatremia Status: Acute Assessment and Plan: presumably acute -- sodium was normal about a year ago etiology not clear -- there is some concern she may have had a seizure - volume depletion (nausea and vomiting for a week) - beer potomania - possible SIADH evaluation noted: - urine sodium suggest prerenal azotemia - serum/urine osmolality and SPE/UPE pending - TSH and cortisol a little on the low side -- but free T4 okay but consider cosyntropin stim test goal of therapy for sodium correction is a change of 4 - 6mmol/L (and no more than 8mmol/L) in 24 hours - evidence of overcorrection 24hrs after admission -- rate of change in sodium slowed down with D5W and DDAVP - rate of correction maintained in the last 24 hours - 3% saline given overnight - added fluid restrictiom follow repeat/serial sodium levels (2) Acute kidney injury: Code(s): N17.9 - Acute kidney failure, unspecified Status: Acute Assessment and Plan: resolving etiology? - possibly relative hypotension compounded by ARB use? - volume depletion? - other? renal ultrasound and urine studies noted improvement noted holding off on IVFs due to sodium level (3) Altered mental status: Code(s): R41.82 - Altered mental status, unspecified Status: Acute Assessment and Plan: clinically better at this time likely secondary to #1 and #2 possible post-ictal state on admission follow mentation (4) Hypokalemia: Code(s): E87.6 - Hypokalemia Status: Acute Assessment and Plan: resolving due to poor oral intake along with low magnesium replete cautiously given NORA replete magnesium PRN (5) Hypertension: Code(s): I10 - Essential (primary) hypertension Status: Chronic Assessment and Plan: reasonable control at this time hold ARB in the setting of #2 follow hemodynamics Will continue to follow. Subjective Date/time seen: 06/17/20 12:13 Continues to do well; eating and drinking; started of fluid restriction; given 3% saline overnight to help augment sodium; renal function appears to be improving as well with stability in K+; no apparent distress voiced at this time. Exam Narrative: Exam Narrative: General: WD/WN female in NAD Heart: normal S1 and S2; no rub Lungs: clear to auscultation Abdomen: soft, nontender, nondistended, positive bowel sounds Extremities: no cyanosis or clubbing; no edema Skin: warm and intact Objective Data Vital Signs Vital Signs: Vital Signs Temp Pulse Resp BP Pulse Ox 06/17/20 12:00 36.8 C 82 12 129/79 96 06/17/20 10:00 69 06/17/20 08:45 61 06/17/20 08:00 36.6 C 95 12 114/78 99 06/17/20 05:53 60 06/17/20 04:00 36.6 C 66 16 110/74 98 06/17/20 02:00 71 06/17/20 00:00 36.6 C 73 16 113/70 98 06/16/20 23:40 98 06/16/20 22:00 71 06/16/20 20:00 36.1 C L 73 16 127/82 100 06/16/20 18:00 73 06/16/20 16:35 74 06/16/20 16:00 36.3 C L 74 18 105/76 99 06/16/20 14:00 77 Intake/Output Intake/Output: Intake & Output 06/14/20 06/15/20 06/16/20 06/17/20 23:59 23:59 23:59 23:59 Intake Total 1050 4020 1230 Output Total 1400 2600 1300 Balance -350 1420 -70 Meds/Results Medications: Active Medications Generic Name Dose Route Start Last Admin Trade Name Freq PRN Reason Stop Dose Admin Acetaminophen 650 mg 06/16/20 13:39 06/16/20 14:25 Acetaminophen 325 Mg Tablet PO 650 mg Q6H PRN Administration Mild Pain (1-3) or Fever Albuterol 2 puff 06/15/20 21:34 Albuterol Sulfate (*Sp) Aerosol 1 Puff INHALATION Q4-6H RI
[2020-06-17 14:56] LABS: Sodium 121 mmol/L (137-145)
--- NOTE | 2020-06-17 14:58 | PC.NURSE ---
Orders to transfer to medical floor- report called to Fatmata Gonsalez RN- pt transferred via bed accompanied by staff to room 242- personal belongings with pt-no c/o pain at this time
[2020-06-17] MEDS: ACETAMINOPHEN 325 MG TABLET 650 MG PO (16:23)
[2020-06-17 16:58] LABS: Glucose Point of Care 183 (65-105)
--- NOTE | 2020-06-17 18:13 | PC.NURSE ---
This patient, Natalya Taylor, was received from IMU reprort received from Marisol KAM on 06/17/20 at 1530. Patient/family oriented to unit policies and routines
[2020-06-17 20:35] LABS: Sodium 122 mmol/L (137-145)
[2020-06-17 20:59] LABS: Glucose Point of Care 155 (65-105)
[2020-06-18] VITALS: BP 127/58; PULSE 56; RESP 18; TEMP 36.9; O2SAT 99
[2020-06-18 00:41] LABS: Sodium 123 mmol/L (137-145)
[2020-06-18 05:40] LABS: Anion Gap 4 mmol/L (8-16); Blood Urea Nitrogen 19 mg/dL (7-17); Carbon Dioxide 30 mmol/L (22-30); Chloride 95 mmol/L (98-107); Estimated CRCL calculation 43 ml/min; Estimated Glomerular Filt Rate 48; Glucose 113 mg/dL (65-105); Magnesium 1.7 mg/dL (1.6-2.3); Phosphorus 2.7 mg/dL (2.5-4.5); Potassium 3.7 mmol/L (3.4-5.0); Sodium 129 mmol/L (137-145)
[2020-06-18 06:13] VITALS: BP 105/64; PULSE 74; RESP 16; TEMP 37; O2SAT 96
[2020-06-18] MEDS: DEXTROSE 5% 1,000 ML 1,000 ML 200 ML IV CONT (07:31)
[2020-06-18 07:38] LABS: Glucose Point of Care 185 (65-105)
[2020-06-18] MEDS: FOLIC ACID 1 MG TABLET PO (08:08)
[2020-06-18] MEDS: THIAMINE HCL 100 MG TABLET PO (08:08)
[2020-06-18] MEDS: THERAPEUTIC MULTIVITAMINS/MINERALS TAB (*BKC) 1 TABLET PO (08:08)
[2020-06-18] MEDS: HYDROXYCHLOROQUINE SULFATE 200 MG TABLET PO ×2 (08:08→16:48)
[2020-06-18] MEDS: AZELASTINE HCL NASAL 0.1% 137 MCG/SPR 30 ML BTL 1 SPRAY NASAL (08:08)
[2020-06-18] MEDS: LIPASE/AMYLASE/PROTEASE 12,000 UNITS CAP 1 CAP PO ×3 (08:08→16:48)
[2020-06-18] MEDS: ACETAMINOPHEN 325 MG TABLET 650 MG PO ×2 (08:12→20:36)
[2020-06-18] MEDS: FAMOTIDINE 20 MG TABLET PO ×2 (10:19→20:35)
--- NOTE | 2020-06-18 10:51 | PM.IMPN ---
Progress Note: A&P Assessment and Plan (1) Altered mental status: Code(s): R41.82 - Altered mental status, unspecified Status: Acute Assessment and Plan: Patient is back to her usual CT head without any abnormalities (2) Hyponatremia: Code(s): E87.1 - Hypo-osmolality and hyponatremia Status: Acute Assessment and Plan: Trending up Nephrology managing (3) Seizure: Code(s): R56.9 - Unspecified convulsions Status: Acute Assessment and Plan: Questionable as patient was found by family member with her staring out into the space and her and her eyes rolled back at 1st However no tonic-clonic seizure witnessed (4) Rheumatoid arthritis: Code(s): M06.9 - Rheumatoid arthritis, unspecified Status: Chronic Assessment and Plan: Continue Humira Continue Plaquenil (5) Alcohol abuse: Code(s): F10.10 - Alcohol abuse, uncomplicated Status: Acute Assessment and Plan: On [facility] protocol Continue to monitor (6) Hypomagnesemia: Code(s): E83.42 - Hypomagnesemia Status: Acute Assessment and Plan: Replace as needed (7) Hypokalemia: Code(s): E87.6 - Hypokalemia Status: Acute Assessment and Plan: Replace as needed (8) Acute kidney injury: Code(s): N17.9 - Acute kidney failure, unspecified Status: Acute Assessment and Plan: Patient BUN and creatinine trending down Likely to be pre renal azotemia Continue to monitor Kidney ultrasound results noted (9) Elevated LFTs: Code(s): R79.89 - Other specified abnormal findings of blood chemistry Status: Acute Assessment and Plan: Likely secondary to alcohol intake Continue to monitor Will check a liver ultrasound (10) Hypertension: Code(s): I10 - Essential (primary) hypertension Status: Chronic Assessment and Plan: Holding irbesartan Her blood pressure is within normal limits Subjective Date/time seen: 06/18/20 10:51 I fill well but had my heartburn is coming back Review of Systems Review of Systems: Narrative: Patient denies any issues at the present time she is complaining of heartburn Constitutional: Comments: No chills no rigors no fevers Cardiovascular: Comments: No chest pain no PND no orthopnea Respiratory: Comments: No shortness of breath no cough no sputum production Gastrointestinal: Comments: Heartburn Genitourinary: Comments: No burning or pain with urination Musculoskeletal: Comments: No muscle pain or joint pain Integumentary/Breasts: Comments: No rashes Neurologic: Comments: No sensorimotor deficit Exam Narrative: Exam Narrative: Patient is laying in bed Const: General: comfortable, no acute distress, well developed, alert and awake Nutritional Appearance: average body habitus Orientation/consciousness: patient oriented x3 HENMT: Head: normal to inspection, normocephalic and atraumatic Ears: hearing grossly normal bilaterally Face and sinus: normal facial exam Eyes: General: appearance normal, both eyes and all related structures Pupils: Equal, round and reactive pupils present EOM: EOMs intact bilaterally Neck: Neck: full ROM, no lymphadenopathy and no JVD Thyroid: thyroid normal Lymphatic: no lymphadenopathy noted Resp: Effort & Inspection: normal respiratory effort and able to speak in complete sentences Auscultation: clear to auscultation bilaterally Cardio: Jugular venous distension: no JVD Rate: regular rate Rhythm: regular rhythm Heart sounds: S1 normal heart sound present and S2 normal heart sound present GI: GI Palp: Yes Soft to palpation and Yes No hepatosplenomegaly present : General: Yes deferred Skin: Rashes: no rashes Wounds: no wounds Neuro: General: patient oriented x3 and CN's II-XI intact bilaterally Cranial nerves: Yes CN's II-XII intact bilaterally and Yes Equal, round and reactive pupils present Cognition (Neuro): normal cogn
--- NOTE | 2020-06-18 12:08 | PM.PNNEP ---
Progress Note: A&P Assessment and Plan (1) Hyponatremia: Code(s): E87.1 - Hypo-osmolality and hyponatremia Status: Acute Assessment and Plan: presumably acute -- sodium was normal about a year ago etiology not clear - volume depletion (nausea and vomiting for a week) -- seems more likely - beer potomania (does have a history of excess EtOH intake but alcohol level on admission) - possible SIADH (a possibility but sodium was correcting on its own without specific intervention) evaluation noted: - urine sodium suggest prerenal azotemia - serum/urine osmolality and SPE/UPE pending - TSH and cortisol a little on the low side -- but free T4 okay but consider cosyntropin stim test goal of therapy for sodium correction is a change of 4 - 6mmol/L (and no more than 8mmol/L) in 24 hours - evidence of overcorrection 24hrs after admission -- rate of change in sodium slowed down with D5W and DDAVP - rate of correction maintained in the last 24 - 48 hours - 3% x 1 saline during this hospitalization - was on fluid restriction but will ease up (2) Acute kidney injury: Code(s): N17.9 - Acute kidney failure, unspecified Status: Acute Assessment and Plan: resolving etiology? - possibly relative hypotension compounded by ARB use? - volume depletion? - likely a combination of both... renal ultrasound and urine studies noted follow trend of labs (3) Altered mental status: Code(s): R41.82 - Altered mental status, unspecified Status: Acute Assessment and Plan: clinically better at this time likely secondary to #1 and #2 possible post-ictal state on admission follow mentation (4) Hypokalemia: Code(s): E87.6 - Hypokalemia Status: Acute Assessment and Plan: resolving due to poor oral intake along with low magnesium replete cautiously given NORA replete magnesium PRN (5) Hypertension: Code(s): I10 - Essential (primary) hypertension Status: Chronic Assessment and Plan: reasonable control at this time hold ARB in the setting of #2 BP remains stable without medications... follow hemodynamics Will continue to follow. Subjective Date/time seen: 06/18/20 12:08 Appears to be doing reasonably well; no apparent distress or problems to report at this time; concern for overcorrection by AM labs so given D5W IVFs and sodium seems relatively stable; no other complaints/concerns voiced at this time. Exam Narrative: Exam Narrative: General: WD/WN female in NAD Heart: normal S1 and S2; no rub Lungs: clear to auscultation Abdomen: soft, nontender, nondistended, positive bowel sounds Extremities: no cyanosis or clubbing; no edema Skin: no rash or nodules Objective Data Vital Signs Vital Signs: Vital Signs Temp Pulse Resp BP Pulse Ox 06/18/20 06:13 37.0 C 74 16 105/64 96 06/18/20 00:00 36.9 C 56 L 18 127/58 L 99 06/17/20 21:18 36.8 C 85 16 119/80 100 Intake/Output Intake/Output: Intake & Output 06/15/20 06/16/20 06/17/20 06/18/20 23:59 23:59 23:59 23:59 Intake Total 1050 4020 1530 920 Output Total 1400 2600 2300 2000 Balance -350 7030 -697 -1461 Meds/Results Medications: Active Medications Generic Name Dose Route Start Last Admin Trade Name Freq PRN Reason Stop Dose Admin Acetaminophen 650 mg 06/16/20 13:39 06/18/20 08:12 Acetaminophen 325 Mg Tablet PO 650 mg Q6H PRN Administration Mild Pain (1-3) or Fever Albuterol 2 puff 06/15/20 21:34 Albuterol Sulfate (*Sp) Aerosol 1 Puff INHALATION Q4-6H PRN Shortness Of Breath Lipase/Protease/Amylase 1 cap 06/16/20 08:00 06/18/20 12:06 Lipase/Amylase/Protease 12,000 Units Cap PO 1 cap TIDWM MARTA Administration A
[2020-06-18 12:10] LABS: Glucose Point of Care 195 (65-105)
[2020-06-18 12:39] LABS: Sodium 129 mmol/L (137-145)
[2020-06-18 14:10] VITALS: BP 100/73; PULSE 80; RESP 16; TEMP 36.3; O2SAT 98
[2020-06-18 15:17] VITALS: BP 100/73
[2020-06-18 18:32] LABS: Sodium 128 mmol/L (137-145)
[2020-06-18 20:00] VITALS: BP 113/71; PULSE 78; RESP 16; TEMP 36.9; O2SAT 100
[2020-06-18 20:47] LABS: Glucose Point of Care 155 (65-105)
[2020-06-18 21:14] LABS: Glucose Point of Care 110 (65-105)
[2020-06-18 22:16] VITALS: O2SAT 99
[2020-06-19] MEDS: COSYNTROPIN 0.25 MG/ML VIAL IV PUSH (04:42)
[2020-06-19 05:37] VITALS: BP 104/76; PULSE 80; RESP 18; TEMP 36.6; O2SAT 99
[2020-06-19] MEDS: ACETAMINOPHEN 325 MG TABLET 650 MG PO ×2 (05:54→13:42)
[2020-06-19 06:26] LABS: Albumin Level 4.1 g/dL (3.5-5.1); Anion Gap 4 mmol/L (8-16); Blood Urea Nitrogen 14 mg/dL (7-17); Calcium 9.2 mg/dL (8.4-10.2); Carbon Dioxide 27 mmol/L (22-30); Chloride 100 mmol/L (98-107); Estimated CRCL calculation 47 ml/min; Estimated Glomerular Filt Rate 53; Glucose 118 mg/dL (65-105); Magnesium 1.6 mg/dL (1.6-2.3); Phosphorus 3.2 mg/dL (2.5-4.5); Sodium 131 mmol/L (137-145)
[2020-06-19 06:36] LABS: Osmolality, Urine 185 mOsm/kg (50-1200)
[2020-06-19 06:50] LABS: Glucose Point of Care 131 (65-105)
[2020-06-19] MEDS: LIPASE/AMYLASE/PROTEASE 12,000 UNITS CAP 1 CAP PO ×2 (09:19→11:11)
[2020-06-19] MEDS: FOLIC ACID 1 MG TABLET PO (09:19)
[2020-06-19] MEDS: FAMOTIDINE 20 MG TABLET PO (09:19)
[2020-06-19] MEDS: THIAMINE HCL 100 MG TABLET PO (09:19)
[2020-06-19] MEDS: AZELASTINE HCL NASAL 0.1% 137 MCG/SPR 30 ML BTL 1 SPRAY NASAL (09:20)
[2020-06-19] MEDS: THERAPEUTIC MULTIVITAMINS/MINERALS TAB (*BKC) 1 TABLET PO (09:20)
[2020-06-19] MEDS: HYDROXYCHLOROQUINE SULFATE 200 MG TABLET PO (09:20)
[2020-06-19 12:46] LABS: Glucose Point of Care 146 (65-105)
[2020-06-19 18:16] LABS: Albumin 4.3 g/dL (3.8-4.8); Alpha 1 Globulin 0.2 g/dL (0.2-0.3); Alpha 2 Globulin 0.7 g/dL (0.5-0.9); Beta 1 Globulin 0.4 g/dL (0.4-0.6); Gamma Globulin 0.7 g/dL (0.8-1.7); Interpretation Consistent with; Protein, Total 6.6 g/dL (6.1-8.1)
[2020-06-20 18:50] LABS: Chloride Rand Ur <20 mmol/L (32-290); Creatinine Random Urine 37 mg/dL (20-275)
[2020-06-24 04:26] LABS: Creatinine, Random Urine 37 mg/dL (20-275); Total Protein/Creatinine Ratio 108 mg/g creat (21-161)
--- NOTE | 2020-06-28 14:08 | PM.DS ---
DS: Admitting Diagnosis Admitting Diagnosis Admitting Diagnosis: (1) Altered mental status: Code(s): R41.82 - Altered mental status, unspecified Status: Acute Assessment and Plan: Likely toxic metabolic encephalopathy due to acute kidney injury and electrolyte abnormalities. I think she probably had a seizure today and she was likely postictal earlier on though she is now alert and oriented. No signs of infection at this time. Initiate seizure precautions. Neurologic checks q.4 hours. (2) Acute kidney injury: Code(s): N17.9 - Acute kidney failure, unspecified Status: Acute Assessment and Plan: Precipitating etiology not entirely clear but she is likely somewhat dehydrated with poor oral intake and vomiting the last week or so. Reportedly her ARB dose was also increased recently. She is not on a diuretic that I can see and is not retaining urine. It looks like she had 2 days of amoxicillin recently but that is unlikely the call as. Sodium is starting to improve thus IV fluids are currently on hold. Renal ultrasound has been ordered and is pending. Monitor strict I/O. Repeat CK to ensure it is not trending upwards. Dr. High (nephrology) has been consulted and his input is appreciated. (3) Hyponatremia: Code(s): E87.1 - Hypo-osmolality and hyponatremia Status: Acute Assessment and Plan: Etiology not entirely clear but may be due to dehydration from poor intake and vomiting over the last week, secondary to so-called beer potomania given her history of alcohol abuse, versus other. More likely multifactorial in etiology. IV fluids currently on hold as her sodium has improved with those received in the ER. Sodium will be monitored q.3 hours to ensure appropriate correction. TSH, urine and serum osmolalities, as well as random urine for sodium and creatinine are pending. (4) Hypokalemia: Code(s): E87.6 - Hypokalemia Status: Acute Assessment and Plan: Potassium will be replaced and monitored. (5) Hypomagnesemia: Code(s): E83.42 - Hypomagnesemia Status: Acute Assessment and Plan: Magnesium will be replaced and monitored. (6) Elevated LFTs: Code(s): R79.89 - Other specified abnormal findings of blood chemistry Status: Acute Assessment and Plan: Presumably secondary to alcohol use with AST greater than ALT. Check right upper quadrant ultrasound and hepatitis panel. Repeat hepatic function panel in a.m. (7) Alcohol abuse: Code(s): F10.10 - Alcohol abuse, uncomplicated Status: Acute Assessment and Plan: Patient reports drinking 1/2 a bottle of wine 5 days a week. Initiate CIWA protocol and seizure precautions. Start thiamine, folic acid, and multivitamin supplementation. (8) Hypertension: Code(s): I10 - Essential (primary) hypertension Status: Chronic Assessment and Plan: Blood pressures were reviewed and they are well controlled. Irbesartan on hold given acute kidney injury. Continue to monitor blood pressures closely. (9) Rheumatoid arthritis: Code(s): M06.9 - Rheumatoid arthritis, unspecified Status: Chronic Assessment and Plan: No acute issues. (10) Seizure: Code(s): R56.9 - Unspecified convulsions Status: Acute Assessment and Plan: I suspect the patient had a seizure earlier today as detailed above. Presumably due to profound hyponatremia. Cannot rule out alcohol withdrawal seizure as she has not had a drink of alcohol for 3 days although this seems less likely as she has frequent periods of time where she does not drink for days and she has never had a seizure before. DS: Discharge Diagnosis Discharge Diagnosis (1) Altered mental status: Code(s): R41.82 - Altered mental status, unspecified Status: Acute Assessment and Plan: Patient is back to her usual CT head without any abnormalities (2) Hypo
== END 2020-06-19 14:50 | disposition home or self-care (01) | DRG 682 ==
LOC: ANHED 10:06 → ANHIMU 13:10 → ANH2MED 06-19 11:46 → ANHIMU 06-21 09:19 → ANH2MED 06-21 09:19
PROVIDERS: Internal Medicine Nephrology; Physician Assistant; Admitting Provider Family Medicine; Emergency Provider General Practice; Visit Provider Internal Medicine
DX: N17.9 Acute kidney failure, unspecified (principal); G92 Toxic encephalopathy; E87.1 Hypo-osmolality and hyponatremia; F10.10 Alcohol abuse, uncomplicated; E87.6 Hypokalemia; E83.42 Hypomagnesemia; I10 Essential (primary) hypertension; M06.9 Rheumatoid arthritis, unspecified; F32.9 Major depressive disorder, single episode, unspecified; F41.9 Anxiety disorder, unspecified; G89.4 Chronic pain syndrome; I69.398 Other sequelae of cerebral infarction; R56.9 Unspecified convulsions; Z90.49 Acquired absence of other specified parts of digestive tract; Z98.1 Arthrodesis status; Z87.891 Personal history of nicotine dependence
CPT/HCPCS: 36415; 70450; 71045; 76775; 80048; 80053; 80069; 80074; 80307; 81001; 81025; 81050; 82436; 82533; 82550; 82570; 82948; 83036; 83605; 83690; 83735; 83930; 83935; 84100; 84132; 84155; 84156; 84165; 84166; 84295; 84300; 84439; 84443; 84480; 85025; 85610; 85730; 85999; 87086; 87088; 93005; 96360; 99285; A9270; J0834; J2597; J3411; J3475; J7030; J7070; J7131

== ENCOUNTER → 2020-10-13 13:34 | Outpatient (CLI) | payer OTHER, SELFPAY ==
--- NOTE | ~2020-10-13 | MM_ITS ---
EXAMINATION: MM screening shivani BI w figueroa HISTORY: Screening TECHNIQUE: Craniocaudal and mediolateral oblique 3-D tomosynthesis images were obtained and synthetic 2-D images were generated. CAD analysis was submitted and interpreted. COMPARISON: No prior mammogram is available for comparison at this institution. BREAST PARENCHYMAL COMPOSITION: The breasts are heterogenously dense, which may obscure small masses FINDINGS: There are asymmetries in the upper outer quadrants of both breasts. There are no suspicious calcifications. IMPRESSION: 1. Bilateral breast asymmetries. 2. Recommend comparison to previous outside mammograms. BI-RADS Category 0: Incomplete: Needs additional imaging evaluation. Reviewed, dictated and finalized at location A.
== END ==
DX: Z12.31 Encounter for screening mammogram for malignant neoplasm of breast (principal); R92.8 Other abnormal and inconclusive findings on diagnostic imaging of breast
CPT/HCPCS: 77063; 77067

== ENCOUNTER → 2021-05-02 13:50 | Outpatient (CLI) | payer OTHER, SELFPAY ==
--- NOTE | ~2021-05-02 | XR_ITS ---
XR_[id number]_CR 05/02/2021 14:38 Indication: Cervicalgia Procedure: 3 views of the cervical spine Comparison: No prior studies for comparison. Findings: Normal cervical alignment. Status post anterior cervical fusion and discectomy at C6-7. No acute fracture or traumatic malalignment. There are facet and uncinate degenerative changes at multip le levels. Lung apices are normal. Odontoid process is normal. Impression: 1: Moderate cervical spondylosis with fusion at C6-7. Reviewed, dictated and finalized at location A. [facility] Impression: 1: Moderate cervical spondylosis with fusion at C6-7.
== END ==
DX: M47.892 Other spondylosis, cervical region (principal); Z98.1 Arthrodesis status
CPT/HCPCS: 72040

== ENCOUNTER 2022-05-27 13:43 | Outpatient (CLI) | payer BC, SELFPAY ==
--- NOTE | ~2022-05-27 | CT_ITS ---
CT Scan of the Chest without Contrast: Clinical Indication: A 6 spondylosis Technique: Contiguous sections were acquired throughout the chest without intravenous contrast. Dose reduction technique was used on this scan by utilizing automated exposure control and iterative recon struction technique. The dose-length product (DLP) was 130.19 mGy-cm. Findings: There is no evidence of any significant mediastinal, hilar or axillary lymphadenopathy. The mediastin al soft tissues appear normal. There is no evidence of pleural or pericardial effusion. The lungs are clear. No pulmonary nodules or infiltrates are noted. Images through the upper abdomen reveal diffuse fatty infiltration of the liver. No significant abnor mality seen in the thoracic spine. Impression: No significant abnormalities seen. Reviewed, dictated and finalized at [facility]. Impression: No significant abnormalities seen.
== END 2022-05-27 13:44 ==
PROVIDERS: PCP Internal Medicine
DX: M47.814 Spondylosis without myelopathy or radiculopathy, thoracic region (principal)
CPT/HCPCS: 71250

== ENCOUNTER 2022-06-28 16:54 | Outpatient (CLI) | payer BC, SELFPAY ==
--- NOTE | ~2022-06-28 | XR_ITS ---
EXAMINATION: XR chest 2V DATE: 06/28/2022 17:20 INDICATION: Acute upper respiratory infection. TECHNIQUE: Frontal and lateral views of the chest were obtained. COMPARISON: Chest single view 06/15/2020 FINDINGS: The chest demonstrates clear lungs without pneumonia, pleural effusion, or pneumothorax. Th e heart size is normal. There is an electronic device in right chest with electrode in right neck. Th ere are changes of anterior fusion procedure in cervical spine. IMPRESSION: 1. No acute cardiopulmonary disease. Reviewed, dictated and finalized at location E.
[2022-06-28 17:44] LABS: Influenza A QL RT-PCR Negative (Negative); Influenza B QL RT-PCR Negative (Negative); RSV RNA, RT-PCR Negative (Negative); SARS-CoV-2 RNA PCR Negative (Negative)
== END 2022-06-28 16:55 | disposition home or self-care (01) ==
PROVIDERS: PCP Internal Medicine; Visit Provider Internal Medicine
DX: J06.9 Acute upper respiratory infection, unspecified (principal); R05.9 Cough, unspecified; Z20.822 Contact with and (suspected) exposure to COVID-19
CPT/HCPCS: 71046; 87637

== ENCOUNTER 2022-11-11 12:30 | Outpatient (RCR) | payer BC, SELFPAY ==
--- NOTE | 2022-10-23 13:27 | PCSTNOTE ---
Patient called to cancel evaluation this date due to requiring a physician visit. Will call to reschedule.
--- NOTE | 2022-11-06 16:34 | STOPEVAL1 ---
Assessment and note entered by Isabela Patten, [employer] Evaluation Information Assessment Status Evaluation Diagnosis Dysphagia Onset 08/09/22 Subjective Information The patient reports that she had surgery, fusion 25 years ago, with increased numbness and pain in the neck; she described it as deterioration of the neck vertabrae. This year, she underwent another cervical disectomy and fusion in her neck C4-C5, C -C6, C-6-T1, T1-T2. When she came out of surgery, she reported that she was unable to talk or eat however she states that her speech returned relatively quickly. Patient currently states that she does not feel her swallowing has improved in the past four weeks. Patient reports that following her surgery, she received Speech Therapy and she recalls addressing speech but not swallowing. Patient also reports diagnoses of Rheumatoid Arthritis (RA), Fibromyalgia, high blood pressure, and high cholesterol. She takes Plaquenol, and Rituxan for the RA. Reported Pain Level Pain Score 0: Self Report Assessment ST Clinical Summary BEDSIDE SWALLOW EVALUATION Today, the patient was presented with thin water per straw, applesauce per spoon, and jonny cracker which she broke into small pieces. She was able to consume all of these consistencies by taking small bites and chewing the solid food slowly and carefully. She was noted throughout this evaluation to clear her throat, before, during, and after consuming food/liquid. When asked about her frequent throat clearing, she reported that she has sinus drainage that causes the need for throat clearing; she did not attribute it to her dysphagia. During this assessment, the following impairments were noted: Oral: Excessive mastication/oral transit time. Pharyngeal: Reduced/limited laryngeal elevation contributing to open airway secondary to reduced epiglottal inversion. Reduced base of tongue retraction contributing to a feeling that material has remained in the throat causing her to require multiple swallows for both the applesauce and
--- NOTE | 2022-11-06 16:40 | OPREHPOC ---
Outpatient Therapy Plan of Care This is a Multidisciplinary Plan of Care that may contain components documented by all disciplines (PT, OT, and ST.) ST Problem 1 ST Problem #[address] Goal 1 Goal Demonstrate understanding of anatomy and physiology of the swallowing, and tasks to improve the range and strength of the swallowing musculature in order to improve the safety of the swallow. Target Visit [address] Problem #[address] Goal 1 Goal 1. Complete laryngeal elevation and base of tongue retraction exercises 10 repetitions with good strength in order to improve airway protection, epiglottal inversion, and clearing of the pharynx for safe swallows. Target Visit 12 ST Goal 2 Goal 2. Tolerate up to 45 minutes of VitalStim to the throat at up to 14.0 mA while completing swallowing strengthening exercises as mentioned in goal 1. in order to increase the strength of the swallow. Target Visit [address] Problem #[address] Goal 1 Goal 3. Voice and demonstrate good understanding of all safe swallowing techniques, compensatory strategies, and diet recommendations in order to safely swallow all approved consistencies. Target Visit 12
--- NOTE | 2022-11-13 12:39 | PCSTNOTE ---
The patient treatment was not able to be completed on 11/13/22 due to illness. Will plan to continue treatment per plan of care.
--- NOTE | 2022-11-15 13:44 | PCSTNOTE ---
Patient is hospitalized and discharged from outpatient Speech Therapy.
--- NOTE | 2022-11-15 13:52 | STOPDC ---
Assessment and note entered by Isabela Patten CAREER BASED INTERVENTION COORDINATOR Evaluation Information Assessment Status Discharge - Pt Not Presen Assessment ST Clinical Summary Patient was seen for one Speech Therapy evaluation for swallowing and then one follow-up treatment for instruction of home exercise program for swallowing exercises to increase airway protection. During that session, patient voiced and demonstrated good understanding of home exercise program including the four exercises to concentrate on for improved swallow for solids. She agreed to continue at home and return for direct swallowing therapy including VitalStim. After that session, however, she cancelled next session due to illness and then was hospitalized for convulsion. Patient is being discharged from direct Speech Therapy but may return to outpatient Speech Therapy with new order following hospitalization. Thank you for allowing this referral. Plan of Care ST Services Indicated Yes
== END 2022-11-19 12:53 | disposition home or self-care (01) ==
LOC: ANHST 12:30
PROVIDERS: PCP Internal Medicine
DX: R13.14 Dysphagia, pharyngoesophageal phase (principal)
CPT/HCPCS: 92526; 92610

== ENCOUNTER 2022-11-14 02:21 | Inpatient (IN) | payer BC, SELFPAY ==
[2022-11-14] VITALS (18 sets, daily range): BP systolic 76–122; BP diastolic 53–86; PULSE 59–119; RESP 12–23; TEMP 36.1–37.2; O2SAT 96–100; BMI 24.0
--- NOTE | ~2022-11-14 | XR_ITS ---
Portable chest x-ray Comparison: 06/28/2022 Clinical History: Seizure Findings: Lungs are clear, without focal consolidation or pleural effusion. Cardiomediastinal silho uette is stable. Neurostimulator device is unchanged. Cervicothoracic spinal fixation hardware is pre sent.. Impression: Clear lungs. Neurostimulator device and cervicothoracic spinal fixation hardware. Reviewed, dictated and finalized at location . Impression: Clear lungs. Neurostimulator device and cervicothoracic spinal fixation hardware.
--- NOTE | ~2022-11-14 | CT_ITS ---
EXAMINATION: CT abdomen pelvis wo con DATE: 11/14/2022 11:08 INDICATION: Abdominal pain. TECHNIQUE: Computed tomography (CT) of the abdomen and pelvis was performed without intravenous contr ast. Automated exposure control and iterative reconstruction technique were employed. The dose-length product was 289.08 mGy-cm. COMPARISON: CT abdomen and pelvis 03/21/2018 FINDINGS: The visualized portions of the lung bases demonstrate mild atelectasis. No pleural effusion . The heart size is normal. No pericardial effusion. There is diffuse hepatic steatosis. There are ch anges of cholecystectomy. The spleen is normal. There is a calcification in the pancreas, consistent with chronic pancreatitis. The adrenal glands and kidneys are normal. There is a gastrostomy tube in expected position. There is a Soni catheter in the bladder. There are changes of appendectomy. There are no pathologically enlarged lymph nodes. There is no free intraperitoneal fluid. There are change s of anterior fusion procedure at L4-L5. There is moderate lumbar spondylosis. IMPRESSION: 1. Diffuse hepatic steatosis. Reviewed, dictated and finalized at location A.
--- NOTE | ~2022-11-14 | XR_ITS ---
MODIFIED ESOPHAGRAM HISTORY: Dysphagia. TECHNIQUE: Modified barium esophagram was performed on 11/18/2022. I administered fluoroscopy and perf ormed the exam with speech pathologist. Patient was seated for lateral fluoroscopic imaging for kinjal stion of thin liquids, pudding, solids and quantified amounts, followed by thin liquids in uncontroll ed amounts. This was recorded on tape. A single fluoroscopic spot image was also recorded. The DAP fo r this procedure was 2.279 Gycm2. The amount of fluoroscopy time used during this procedure was 2.7 m inutes. FINDINGS: Oral stage: Reduced lingual movement.. Pharyngeal stage: Reduced laryngeal elevation, tongue base retraction and pharyngeal squeeze. Single episode of flash laryngeal penetration without aspiration. Cervical/esophageal stage: Adequate function. IMPRESSION: Mild oropharyngeal dysphagia with single episode of flash laryngeal penetration without a spiration. Please correlate with speech pathologist findings and specific feeding recommendations. Reviewed, dictated and finalized at location A. IMPRESSION: Mild oropharyngeal dysphagia with single episode of flash laryngeal penetration without aspiration. Please correlate with speech pathologist find ings and specific feeding recommendations.
--- NOTE | ~2022-11-14 | CT_ITS ---
Non-contrast Head CT History: Seizure, altered mental status COMPARISON: 06/15/2020 Technique: Axial non-contrast imaging of the brain was performed. Dose reduction technique was used on this scan by utilizing automated exposure control and iterative reconstruction technique. The dose -length product (DLP) was 756.67 mGy-cm. Findings: There is no evidence of intracranial hemorrhage, mass lesion, or acute infarct. Brain par enchyma appears normal. The ventricles and subarachnoid spaces are normal in size. The calvarium ap pears normal. The visualized paranasal sinuses and mastoid air cells are clear. Impression: No significant abnormality seen. Reviewed, dictated and finalized at location . Impression: No significant abnormality seen.
--- NOTE | 2022-11-14 03:45 | ECG_ITS ---
Measurements Intervals [place] Rate: 64 P: 25 VT: 168 QRS: 14 QRSD: 105 T: 42 QT: 501 QTc: 518 Interpretive Statements SINUS RHYTHM INCOMPLETE RIGHT BUNDLE BRANCH BLOCK PROLONGED QT INTERVAL BASELINE ARTIFACT- I, II, III, AVR, AVL, AVF, V1, V3-V6 ABNORMAL ECG COMPARED TO ECG 06/15/2020 09:31:39 SINUS RHYTHM NOW PRESENT PROLONGED QT INTERVAL NOW PRESENT Electronically Signed On 11-14-2022 6:42:48 CDT by Alex Marie D.O.
--- NOTE | 2022-11-14 04:02 | ED.GENADULT ---
HPI - General Adult General Chief complaint: Seizure Stated complaint: seizure Time Seen by Provider: 11/14/22 03:14 History of Present Illness HPI narrative: Patient a 52-year-old female who presents the emergency department with chief complaint of seizure activity. Patient has prior history of episodes of hyponatremia and has had seizures before in the past patient does have history of alcohol abuse and normally drinks daily the patient previously had a sodium in the low 100s and this evening was laying in bed and her noticed that she had an episode where she screamed out and then was shaking with seizure-like activity patient reports that she has pain in her back that did not have any fall or trauma Related Data Home Medications Medication Instructions Recorded Confirmed adalimumab 40 mg/0.8 mL mg subcut 06/15/20 subcutaneous pen kit (Humira Pen) albuterol sulfate 90 mcg/actuation 2 puff inhalation Q4-6H PRN 06/15/20 06/15/20 aerosol inhaler (Ventolin HFA) Shortness Of Breath azelastine 137 mcg (0.1 %) nasal 1 spray intranasal DAILY 06/15/20 06/15/20 spray aerosol bupropion HCl 300 mg 24 hr tablet, 300 mg PO DAILY 06/15/20 06/15/20 extended release colestipol 1 gram tablet 1 g PO BID 06/15/20 06/15/20 hydroxychloroquine 200 mg tablet 200 mg PO BID 06/15/20 06/15/20 irbesartan 150 mg tablet 75 mg PO HS 06/15/20 06/15/20 gyojam-gzzwmxah-gsttnne 1 cap PO TIDWM 06/15/20 06/15/20 12,000-38,000-60,000 unit capsule,delayed rel (Creon) ondansetron HCl 4 mg tablet 4 mg PO BID PRN Nausea 06/15/20 06/15/20 Allergies Allergy/AdvReac Type Severity Reaction Status Date / Time No Known Allergies Allergy Verified 06/15/20 15:48 Review of Systems Review of Systems: A 10 system review of systems was completed on the patient and is negative except for what is stated in the HPI. Nursing and ancillary documentation was reviewed. [facility] Past Medical History Medical History (Updated 06/15/20 @ 21:30 by Vilma Bhatt PA-C) Alcohol abuse Anxiety Chronic pain syndrome Chronic neck and back pain. Depression Hypertension Pancreatitis (~03/2018) Rheumatoid arthritis Surgical History Surgical History (Updated 06/15/20 @ 14:26 by Vilma Bhatt PA-C) History of appendectomy Complicated by abscess requiring drainage. History of arthroscopy of right knee History of cholecystectomy History of dilation and curettage History of fusion of cervical spine History of fusion of lumbar spine History of sinus surgery Family History Family History Other Breast cancer Diabetes mellitus Heart disease Hypertension Social History Social History (Updated 06/15/20 @ 21:26 by Vilma Bhatt PA-C) Social History: Surrogate decision maker: Lito Taylor, . Code status: Full code. Smoking packs per day: 1 Smoking cigarettes per day: 20.0 Years smoked: 20 Smoking pack-years: 20.00 Smoking status: Former smoker Tobacco type: cigarettes Alcohol intake: current Drinks per week: 32 Alcohol use details: Patient drinks a half a bottle of wine, 5 days a week. Substance use: former Substance use type: marijuana Other substance usage details: Medical marijuana. Additional living arrangements comments: Patient lives with her and children in [place]. Additional occupation/education comments: Homemaker. Gender identity (if verbalized by the patient): Female Spiritual care concerns: No Exam Narrative: GENERAL: Well-appearing, well-nourished, and in no acute distress. HEAD: Normocephalic, atraumatic. EYES: PERRLA and EOMI. ENT: Nares clear, no rhinorrhea or epistaxis. Mucous membranes moist. NECK: Supple. CHEST: Clear to auscultation. No respiratory distress. HEART: Regular rate and rhythm. No murmur heard. Normal peripheral pulses. ABDOMEN: Soft, nontender, nondistended, normal acti
[2022-11-14 04:30] LABS: Ethanol < 10 mg/dL (<10); Lactic Acid Reflex 1.3 mmol/L (0.7-2.0)
[2022-11-14 04:31] LABS: INR 1.3; Prothrombin Time 16.6 Seconds (11.1-14.7)
[2022-11-14 04:32] LABS: Partial Thromboplastin Time 35.3 SECONDS (22.3-36.8)
[2022-11-14 04:33] LABS: Alanine Aminotransferase 28 U/L (6-35); Albumin Level 3.6 g/dL (3.5-5.1); Alkaline Phosphatase 146 U/L (38-126); Anion Gap 10 mmol/L (8-16); Aspartate Amino Transferase 70 U/L (14-36); Bilirubin,Total 0.5 mg/dL (0.2-1.3); Blood Urea Nitrogen 5 mg/dL (7-17); Calcium 4.6 mg/dL (8.4-10.2); Carbon Dioxide 27 mmol/L (22-30); Chloride 77 mmol/L (98-107); Estimated CRCL calculation 72 ml/min; Estimated Glomerular Filt Rate > 60; Glucose 112 mg/dL (65-110); Magnesium 0.4 mg/dL (1.6-2.3); Potassium 2.9 mmol/L (3.4-5.0); Sodium 114 mmol/L (137-145)
[2022-11-14] MEDS: SODIUM CHLORIDE 0.9% IV 1,000 ML 999 ML IV CONT (04:38)
[2022-11-14 04:42] LABS: Troponin I 0.013 ng/mL (0.000-0.034)
[2022-11-14 05:04] LABS: Basophils Absolute Auto 0.1 K/mm3 (0.0-0.1); Basophils Percent Auto 0.5 % (0.2-1.2); Eosinophils Absolute Auto 0.5 K/mm3 (0-0.3); Eosinophils Percent Auto 5.3 % (0-4.4); Hematocrit 33.3 % (37.0-47.0); Hemoglobin 12.5 g/dL (12.0-15.0); Immature Granulocyte Absolute 0.15 K/mm3 (0.00-0.031); Immature Granulocyte Percent A 1.6 % (0-0.5); Lymphocytes Percent Auto 10.6 % (18.3-44.2); Mean Corpuscular HGB Conc 37.5 g/dl (32-36); Mean Corpuscular Hemoglobin 33.4 pg (26-34); Mean Platelet Volume 9.5 fl (7.4-10.4); Monocytes Absolute Auto 1.1 K/mm3 (0.1-0.6); Monocytes Percent Auto 11.7 % (2.6-8.5); Neutrophils Absolute Auto 6.6 K/mm3 (1.3-6.7); Neutrophils Percent Auto 70.3 % (45.5-73.1); Platelet Count Result 253 k/mm3 (150-375); Red Blood Count 3.74 M/mm3 (4.2-5.4); Red Cell Distribution Width 12.6 % (11.5-14.5); White Blood Count 9.4 K/mm3 (4.5-10.0)
[2022-11-14] MEDS: KCL 20 MEQ/SW 100 ML 100 ML 50 MEQ IVPB (06:11)
[2022-11-14] MEDS: MAGNESIUM SULFATE 3GM/D5W100ML 3 GM/100 ML BAG IVPB (06:11)
[2022-11-14] MEDS: MORPHINE SULFATE (*CRX) 4 MG/ML INJ IV PUSH (06:13)
[2022-11-14] MEDS: SODIUM CHLORIDE 3% 100 ML 30 ML IV CONT (06:28)
[2022-11-14 07:02] LABS: Appearance Urine Clear (Clear); Bacteria Urine None Seen /hpf; Bilirubin Urine Negative (Negative); Blood Urine Negative (Negative); Color Urine Yellow (Yellow); Glucose Urine UA Negative (Negative); Ketones Urine Negative (Negative); Leukocyte Esterase Ur Negative LEU/UL (Negative); Need Manual Microscopic Reviewed; Nitrate Urine Negative (Negative); Non Pathogenic Casts 0-2; Protein Urine 1+ mg/dL (Negative); RBC Urine 0-2 /hpf (0-2); Specific Grav Ur 1.007 (1.001-1.035); Squamous Epithelial Cell Urine None seen /hpf (Few); Urobilinogen Urine 0.2 mg/dL (<2.0); WBC Urine 0-5 /hpf
[2022-11-14 07:10] LABS: Amphetamine Screen Urine Negative (Negative)
[2022-11-14 07:11] LABS: Cannabinoid Screen Urine Negative (Negative); Opiate Screen Urine Negative (Negative)
[2022-11-14 07:29] LABS: Barbiturate Screen Urine Negative (Negative); Benzodiazepines Screen Urine Negative (Negative); Cocaine Screen Urine Negative (Negative); Methadone Screen Urine Negative (Negative); Phencyclidine Screen Urine Negative (Negative)
[2022-11-14 07:32] LABS: Add Urine Microscopic? YES
[2022-11-14 09:02] LABS: Phosphorus 4.3 mg/dL (2.5-4.5)
[2022-11-14 09:07] LABS: Anion Gap 8 mmol/L (8-16); Blood Urea Nitrogen 4 mg/dL (7-17); Calcium 4.8 mg/dL (8.4-10.2); Carbon Dioxide 28 mmol/L (22-30); Chloride 85 mmol/L (98-107); Estimated CRCL calculation 72 ml/min; Estimated Glomerular Filt Rate > 60; Glucose 106 mg/dL (65-110); Potassium 2.7 mmol/L (3.4-5.0); Sodium 121 mmol/L (137-145)
--- NOTE | 2022-11-14 09:18 | WPDCNINT ---
Assessment and Plan Assessment and plan (1) Seizure: Code(s): R56.9 - Unspecified convulsions Status: Acute Assessment and Plan: Seizure likely secondary to hyponatremia Seizure precautions Patient now alert oriented Management hyponatremia as below P.r.n. Ativan (2) Hyponatremia: Code(s): E87.1 - Hypo-osmolality and hyponatremia Status: Acute Assessment and Plan: Patient presented with sodium of 114 along with multiple other electrolyte abnormalities. She does have history of hyponatremia in the past. Does not appear to be dehydrated and this is likely secondary to poor nutrition intake and heavy alcohol use Patient was given IV fluid bolus and started on 3% saline. I check repeat sodium is 121. As per recommendations in a patient with severe hyponatremia and seizures sodium has been acutely increased by 4-6 meq. Will hold further 3% saline at this time. Continue to monitor BMPs. Patient is getting potassium in D5 water which I anticipate will drop sodium to 120 or below. Will decide on further treatment depending on the next level in 4 hours. Nephrology also consulted and will discuss with Nephrology regarding further management.. Check TSH serum and urine osmolarity, urine sodium The placed other electrolyte abnormalities Q4H BMPs (3) Alcohol abuse: Code(s): F10.10 - Alcohol abuse, uncomplicated Status: Acute Assessment and Plan: Start thiamine folic acid Monitor for signs of withdrawal (4) Dysphagia: Code(s): R13.10 - Dysphagia, unspecified Status: Acute Assessment and Plan: Patient has history of dysphagia and has PEG tube although she continues to eat intermittently. She would not tell me what type of tube feed and at what rate she is supposed to be on. I will consult speech therapy to evaluate her swallowing Consult dietitian for recommendations starting tube feeds through her PEG tube. Will start at low rate due to prevent any refeeding syndrome (5) Electrolyte abnormality: Code(s): E87.8 - Other disorders of electrolyte and fluid balance, not elsewhere classified Status: Acute Assessment and Plan: Likely secondary to poor p.o. dietary intake and significant alcohol abuse low magnesium level has been replaced and will be checked at noon Calcium replacement has been ordered including IV and per tube Potassium replacement has been ordered both IV and per tube (6) Malnutrition: Code(s): E46 - Unspecified protein-calorie malnutrition Status: Acute Assessment and Plan: Consult dietitian for nutritional assessment and to initiate tube feeds Creon ordered (7) Abdominal pain: Code(s): R10.9 - Unspecified abdominal pain Status: Acute Assessment and Plan: Check CT abdomen pelvis LFTs reviewed Check lipase Patient appears to have history of chronic pancreatitis that she is on Creon daily (8) Neck pain: Code(s): M54.2 - Cervicalgia Status: Acute Assessment and Plan: Patient has chronic neck pain and has had surgery in August. Analgesics ordered She has her call with her which she is supposed to wear p.r.n. as per directions from her orthopedic surgeon Plan DVT prophylaxis -Lovenox Nutrition -will start Tube Feeds Code Status - Full Code I spoke to and updated patient and her at bedside Total Critical Care Time - 32 minutes Due to a high probability of clinically significant, life threatening deterioration, the patient required my highest level of preparedness to intervene emergently and I personally spent this critical care time directly and personally managing the patient. This critical care time included obtaining a history; examining the patient; pulse oximetry; ordering and review of studies; arranging urgent treatment with development of a management plan; evaluation of patient's response to treatment; frequent reassessment; and discussions with other prov
[2022-11-14 09:23] LABS: Free T4 Free Thyroxine 1.53 ng/mL (0.78-2.19)
[2022-11-14 09:37] LABS: Thyroid Stimulating Hormone Reflex 0.419 uIU/mL (0.465-4.68)
[2022-11-14] MEDS: POTASSIUM CHLORIDE 20 MEQ PACKET (FOR LIQUID) 40 MEQ FEED TUBE ×2 (09:42→12:33)
[2022-11-14] MEDS: HYDROcodone/acetaminophen (*CRX) 5-325 MG TABLET 1 TAB FEED TUBE (09:43)
[2022-11-14] MEDS: THIAMINE HCL 200 MG/2 ML VIAL 100 MG IV PUSH (09:43)
[2022-11-14] MEDS: POTASSIUM CHLORIDE INJ 40 MEQ in DEXTROSE 5% IN WATER 500 ML 130 MEQ IVPB (09:48)
[2022-11-14 11:16] LABS: Free T4 Free Thyroxine Reflex 1.51 ng/dL (0.78-2.19)
--- NOTE | 2022-11-14 11:37 | PM.IMHP ---
H&P: HPI History of Present Illness Date/Time: 11/14/22 11:37 Chief Complaint: WEAKNESS Narrative: Natalya Taylor is a 52 year old female with history of rheumatoid arthritis, chronic pain syndrome, neck surgery in August, heavy alcohol use, history of hyponatremia presented today to ER with chief complaint of seizure.? Patient is a poor historian and most of the history was obtained from patient's was at bedside.? He told me the patient had a good day yesterday apart from the neck pain that she has been having since her surgery and last night he woke up hearing gurgling sound and found her to be having seizure.? He states the patient has had a seizure in the past 2 years ago and was found to be secondary to hyponatremia.? He states that seizure lasted few minutes.? Denies any history of fall or trauma.? He did notice the patient had bitten her tongue had some bleeding in her mouth.? No nausea vomiting.? He states the patient yesterday had a good day and was otherwise asymptomatic.? Patient herself at this time complains of neck pain and rates it at 5/10 and is unable to provide any further details as she continues to answer 'I dont know' to most questions.? She denies any chest pain shortness a breath but does admit to being nauseous.? But no dysuria hematuria fever chest pain weakness or paresthesia in extremities. Patient has a PEG tube that was placed in August of this year after her surgery due to poor p.o. intake.? She does have history of difficulty swallowing although I am not sure of all the details.? Patient does eat certain things by her choice and also drinks alcohol daily and heavily.? Patient would not answer questions about alcohol amount but her states the patient does drink significant amount of wine and hard seltzer every day and she drank 2 cans yesterday.? No smoking or other drug use.? Patient is supposed to be using her PEG tube for tube feeding but patient states has not seen her lately feeding herself with tube feeds.? Patient also would not answer what kind of tube feed she is supposed to be on and how much she is supposed to take.? Patient's states the patient has had stomach issues for long time and has been a very picky eater and eats limited amount of food.? All other systems were reviewed and were negative Review of Systems Review of Systems: All systems reviewed & are unremarkable except as noted in HPI and below (HPI) [facility] Past Medical History Medical History Alcohol abuse Anxiety Chronic pain syndrome Chronic neck and back pain. Depression Hypertension Pancreatitis (~03/2018) Rheumatoid arthritis Surgical History Surgical History History of appendectomy Complicated by abscess requiring drainage. History of arthroscopy of right knee History of cholecystectomy History of dilation and curettage History of fusion of cervical spine History of fusion of lumbar spine History of sinus surgery Family History Family History Other Breast cancer Diabetes mellitus Heart disease Hypertension Social History Social History Social History: Surrogate decision maker: Lito Taylor, . Code status: Full code. Smoking packs per day: 1 Smoking cigarettes per day: 20.0 Years smoked: 20 Smoking pack-years: 20.00 Smoking status: Former smoker Tobacco type: cigarettes Alcohol intake: current Drinks per week: 21 Alcohol use details: Patient drinks a half a bottle of wine, 5 days a week. Substance use: current Substance use type: does not use Other substance usage details: Medical marijuana. Lack of Transportation: No Lack of Food: Never True Current Housing: Decline to Answer Concerned About Future Housing: No Difficulty Paying Gas/Elect
--- NOTE | 2022-11-14 11:54 | PCDIET ---
Tube feeding: Osmolite 1.5. Advance to a goal rate of 55ml/hr to meet needs if tolerated
--- NOTE | 2022-11-14 12:20 | PM.CNNEP ---
Assessment and Plan Assessment and plan (1) Hyponatremia: Code(s): E87.1 - Hypo-osmolality and hyponatremia Status: Acute Assessment and Plan: known history suspect acute on chronic no recent labs to compare to sodium 131 on diischarge in 2020 suspect secondary to poor oral intake and significant alcohol intake s/p IVFs and 3% saline follow-up on TSH and urine studies goal of therapy is rate of change of 6 - 8mmol/L in 24 hours has a history of overcorrection in the past follow repeat sodium levels (2) Seizure: Code(s): R56.9 - Unspecified convulsions Status: Acute Assessment and Plan: secondary to hyponatremia (much like episode 2 years ago) mentaiton at baseline currently seizure precautions (3) Alcohol abuse: Code(s): F10.10 - Alcohol abuse, uncomplicated Status: Acute Assessment and Plan: on thiamine and folic acid monitor for signs of withdrawal (4) Electrolyte abnormality: Code(s): E87.8 - Other disorders of electrolyte and fluid balance, not elsewhere classified Status: Acute Assessment and Plan: noted issues with hypocalcmia, hypomagnesemia, and hypokalemia presumably secondary to poor oral intake and significant alcohol abuse replaced IV And per G-tube follow repeat electrolytes (5) Malnutrition: Code(s): E46 - Unspecified protein-calorie malnutrition Status: Acute Assessment and Plan: presumably reason she has PEG tube dietary and speech therapy consulted Discussed case with Dr. Griffin. I will continue to follow the patient with you while she remains hospitalized and make further recommendations as necessary. Thank you for allowing me to participate in care of this patient. History of Present Illness Reason for Consult Consult date: 11/14/22 Reason for consult: hyponatremia Chief Complaint Chief complaint: Seizure, Acute Hyponatremia, Hypomagnesmia, Hypoka History of Present Illness Narrative: The patient is a 52-year-old [facility] female with a past medical history as outlined below who presented to [facility] ER via EMS for further evaluation of a seizure. Most of the history that I have obtained is from review of the electronic medical record as well as discussion with the physicians/nurses involved in the patient's care as she is not very forthcoming with information at the time of my visit. Apparently, the patient's woke up yesterday evening after hearing a gurgling sound at which point he noted his was having a seizure. He reports that the seizure lasted for a few minutes and he did notice that the patient had been her tongue and there was some blood in her mouth. No reported history of any type of fall or trauma or issues with nausea or vomiting. EMS was called after the seizure activity was noted and she was transferred to the emergency room for further assessment. Workup and evaluation emergency room demonstrated the patient to be somewhat postictal but she was able to respond to questions. She was otherwise hemodynamically stable in no in no apparent distress. Routine blood test demonstrated labs significant for hyponatremia with a sodium level 114 along with other critical electrolyte abnormalities including low magnesium, low potassium and low calcium. It was felt that her seizure was most likely secondary to her hyponatremia as she had an episode similar to this approximately 2 years ago and was hospitalized here [facility] for this same problem/issue. She was given IV fluids in the emergency room and subsequently transition to a 3% saline drip in effort to correct her sodium level given the concern that her seizure was secondary to this phenomenon. Upon further questioning, the patient is known to have a history of alcohol abuse and continues to drink quite heavily and daily. The exact amount of how much alcohol she takes in a day is not entire
--- NOTE | 2022-11-14 12:20 | P.CONNP_ITS ---
Assessment and Plan Assessment and plan (1) Hyponatremia: Code(s): E87.1 - Hypo-osmolality and hyponatremia Status: Acute Assessment and Plan: * known history * suspect acute on chronic * no recent labs to compare to * sodium 131 on diischarge in 2020 * suspect secondary to poor oral intake and significant alcohol intake * s/p IVFs and 3% saline * follow-up on TSH and urine studies * goal of therapy is rate of change of 6 - 8mmol/L in 24 hours * has a history of overcorrection in the past * follow repeat sodium levels (2) Seizure: Code(s): R56.9 - Unspecified convulsions Status: Acute Assessment and Plan: * secondary to hyponatremia (much like episode 2 years ago) * mentaiton at baseline currently * seizure precautions (3) Alcohol abuse: Code(s): F10.10 - Alcohol abuse, uncomplicated Status: Acute Assessment and Plan: * on thiamine and folic acid * monitor for signs of withdrawal (4) Electrolyte abnormality: Code(s): E87.8 - Other disorders of electrolyte and fluid balance, not elsewhere classified Status: Acute Assessment and Plan: * noted issues with hypocalcmia, hypomagnesemia, and hypokalemia * presumably secondary to poor oral intake and significant alcohol abuse * replaced IV And per G-tube * follow repeat electrolytes (5) Malnutrition: Code(s): E46 - Unspecified protein-calorie malnutrition Status: Acute Assessment and Plan: * presumably reason she has PEG tube * dietary and speech therapy consulted Discussed case with Dr. Griffin. I will continue to follow the patient with you while she remains hospitalized and make further recommendations as necessary. Thank you for allowing me to participate in care of this patient. History of Present Illness Reason for Consult Consult date: 11/14/22 Reason for consult: hyponatremia Chief Complaint Chief complaint: Seizure, Acute Hyponatremia, Hypomagnesmia, Hypoka History of Present Illness Narrative: The patient is a 52[facility] with a past medical history as outlined below who presented to [facility] ER via EMS for further evaluation of a seizure. Most of the history that I have obtained is from review of the electronic medical record as well as discussion with the physicians/nurses involved in the patient's care as she is not very forthcoming with information at the time of my visit. Apparently, the patient's woke up yesterday evening after hearing a gurgling sound at which point he noted his was having a seizure. He reports that the seizure lasted for a few minutes and he did notice that the patient had been her tongue and there was some blood in her mouth. No reported history of any type of fall or trauma or issues with nausea or vomiting. EMS was called after the seizure activity was noted and she was transferred to the emergency room for further assessment. Workup and evaluation emergency room demonstrated the patient to be somewhat postictal but she was able to respond to questions. She was otherwise hemodynamically stable in no in no apparent distress. Routine blood test demonstrated labs significant for hyponatremia with a sodium level 114 along with other critical electrolyte abnormalities including low magnesium, low potassium and low calcium. It was felt that her seizure was most likely secondary to her hyponatremia as she had an episode similar to this approximately 2 years ago and was hospitalized here [facility] for this same problem/issue. She was gi
[2022-11-14] MEDS: MORPHINE SULFATE (*CRX) 2 MG/ML INJ IV PUSH ×3 (12:33→23:34)
[2022-11-14 12:41] LABS: Total Triiodothyronine (T3) 1.31 NG/ML (0.97-1.69)
[2022-11-14 12:45] LABS: Lipase 18 U/L (23-300)
[2022-11-14] MEDS: CALCIUM GLUC 2,000 MG/NS 100ML 2,000 MG/100 ML BAG 100 MG IVPB (12:45)
[2022-11-14 12:54] LABS: Anion Gap 7 mmol/L (8-16); Blood Urea Nitrogen 4 mg/dL (7-17); Calcium 4.9 mg/dL (8.4-10.2); Carbon Dioxide 26 mmol/L (22-30); Chloride 91 mmol/L (98-107); Estimated CRCL calculation 98 ml/min; Estimated Glomerular Filt Rate > 60; Glucose 98 mg/dL (65-110); Magnesium 1.6 mg/dL (1.6-2.3); Sodium 124 mmol/L (137-145)
--- NOTE | 2022-11-14 13:09 | ADMIMU ---
This patient, Natalya Taylor, was admitted to IMU status, and placed in Intensive Care Unit-1. Patient/family oriented to hospital policies and general routines including ID bracelet, bed and alarms, visiting hours, pain management, procedures, bathroom and other care routines, personal items, smoking policy, room service/diet, and visiting hours. Valuables list has been completed. Information on how to activate the Rapid Response Team has been discussed. Patient/Family are encouraged to report perceived risks to care and to ask questions if they do not understand what they are told or what they should do.
--- NOTE | 2022-11-14 13:22 | PM.EVENT ---
Event Note Event Note Event Note: Repeat sodium came back 124. Discussed with Dr. High and go from Nephrology. He recommends D5 water 500 mL over 2 hours and then recheck sodium. Order placed
[2022-11-14 15:45] LABS: Creatinine Urine 52.6 mg/dL
[2022-11-14 15:49] LABS: Sodium Urine Random < 5 meq/L
[2022-11-14] MEDS: DEXTROSE 5% IN WATER 500 ML 250 ML IV CONT ×2 (16:06→22:08)
[2022-11-14] MEDS: CALCIUM/VITAMIN D 250 MG TABLET 2 TABLET FEED TUBE (16:07)
[2022-11-14] MEDS: MAGNESIUM SULF 2 GM/WATER 50ML 2 GM/50 ML BAG IVPB (16:37)
[2022-11-14] MEDS: TIZANIDINE HCL 2 MG TABLET PO (19:04)
[2022-11-14] MEDS: ACETAMINOPHEN 325 MG TABLET 650 MG FEED TUBE (20:23)
[2022-11-14 21:42] LABS: Anion Gap 6 mmol/L (8-16); Blood Urea Nitrogen 3 mg/dL (7-17); Carbon Dioxide 21 mmol/L (22-30); Chloride 98 mmol/L (98-107); Estimated CRCL calculation 83 ml/min; Estimated Glomerular Filt Rate > 60; Glucose 127 mg/dL (65-110); Potassium 4.2 mmol/L (3.4-5.0); Sodium 125 mmol/L (137-145)
[2022-11-14] MEDS: DESMOPRESSIN ACETATE 4 MCG/ML AMP 1 MCG SUB-Q (22:12)
[2022-11-15] VITALS (14 sets, daily range): BP systolic 87–130; BP diastolic 57–82; PULSE 64–84; RESP 12–24; TEMP 36.9–37.6; O2SAT 95–100
[2022-11-15 03:16] LABS: Basophils Absolute Auto 0.1 K/mm3 (0.0-0.1); Basophils Percent Auto 0.7 % (0.2-1.2); Eosinophils Absolute Auto 0.2 K/mm3 (0-0.3); Hematocrit 36.6 % (37.0-47.0); Hemoglobin 13.2 g/dL (12.0-15.0); Immature Granulocyte Absolute 0.04 K/mm3 (0.00-0.031); Immature Granulocyte Percent A 0.5 % (0-0.5); Lymphocytes Absolute Auto 0.88 K/mm3 (0.9-3.2); Mean Corpuscular HGB Conc 36.1 g/dl (32-36); Mean Corpuscular Hemoglobin 33.4 pg (26-34); Mean Corpuscular Volume 92.7 fl (80-100); Mean Platelet Volume 8.8 fl (7.4-10.4); Monocytes Absolute Auto 0.6 K/mm3 (0.1-0.6); Monocytes Percent Auto 7.9 % (2.6-8.5); Neutrophils Absolute Auto 5.6 K/mm3 (1.3-6.7); Neutrophils Percent Auto 75.9 % (45.5-73.1); Platelet Count Result 336 k/mm3 (150-375); Red Blood Count 3.95 M/mm3 (4.2-5.4); Red Cell Distribution Width 12.9 % (11.5-14.5); White Blood Count 7.3 K/mm3 (4.5-10.0)
[2022-11-15] MEDS: HYDROcodone/acetaminophen (*CRX) 5-325 MG TABLET 1 TAB FEED TUBE (04:10)
[2022-11-15] MEDS: DEXTROSE 5% IN WATER 500 ML 250 ML IV CONT (04:10)
[2022-11-15 07:04] LABS: Alanine Aminotransferase 25 U/L (6-35); Albumin Level 3.6 g/dL (3.5-5.1); Alkaline Phosphatase 181 U/L (38-126); Anion Gap 11 mmol/L (8-16); Aspartate Amino Transferase 57 U/L (14-36); Bilirubin,Total 0.5 mg/dL (0.2-1.3); Blood Urea Nitrogen 4 mg/dL (7-17); Calcium 6.4 mg/dL (8.4-10.2); Carbon Dioxide 19 mmol/L (22-30); Chloride 95 mmol/L (98-107); Estimated CRCL calculation 98 ml/min; Estimated Glomerular Filt Rate > 60; Glucose 143 mg/dL (65-110); Magnesium 2.6 mg/dL (1.6-2.3); Potassium 3.8 mmol/L (3.4-5.0); Sodium 125 mmol/L (137-145)
[2022-11-15 08:38] LABS: Phosphorus 2.6 mg/dL (2.5-4.5)
[2022-11-15 08:44] LABS: Anion Gap 3 mmol/L (8-16); Blood Urea Nitrogen 4 mg/dL (7-17); Calcium 6.6 mg/dL (8.4-10.2); Carbon Dioxide 28 mmol/L (22-30); Chloride 92 mmol/L (98-107); Estimated CRCL calculation 98 ml/min; Estimated Glomerular Filt Rate > 60; Glucose 134 mg/dL (65-110); Potassium 3.8 mmol/L (3.4-5.0); Sodium 123 mmol/L (137-145)
[2022-11-15] MEDS: CALCIUM GLUC 2,000 MG/NS 100ML 2,000 MG/100 ML BAG 100 MG IVPB (09:16)
[2022-11-15] MEDS: HYDROXYCHLOROQUINE SULFATE 200 MG TABLET PO ×2 (09:17→16:47)
[2022-11-15] MEDS: FOLIC ACID 1 MG TABLET FEED TUBE (09:17)
[2022-11-15] MEDS: CALCIUM/VITAMIN D 250 MG TABLET 2 TABLET FEED TUBE ×2 (09:17→16:47)
[2022-11-15] MEDS: ENOXAPARIN 40 MG/0.4 ML SYRINGE SUB-Q (09:17)
[2022-11-15] MEDS: THIAMINE HCL 200 MG/2 ML VIAL 100 MG IV PUSH (09:17)
[2022-11-15] MEDS: BACLOFEN 5 MG TABLET PO ×3 (09:17→22:14)
[2022-11-15] MEDS: POTASSIUM CHLORIDE 20 MEQ PACKET (FOR LIQUID) 40 MEQ FEED TUBE (09:17)
--- NOTE | 2022-11-15 09:20 | WPDINTPN ---
Progress Note: A&P Assessment and Plan (1) Seizure: Code(s): R56.9 - Unspecified convulsions Status: Acute Assessment and Plan: Seizure likely secondary to hyponatremia No recurrence in ICU Continue seizure precautions Patient now alert oriented Management hyponatremia as below P.r.n. Ativan (2) Hyponatremia: Code(s): E87.1 - Hypo-osmolality and hyponatremia Status: Acute Assessment and Plan: Patient presented with sodium of 114 along with multiple other electrolyte abnormalities. She does have history of hyponatremia in the past. Does not appear to be dehydrated and this is likely secondary to poor nutrition intake and heavy alcohol use Patient was given IV fluid bolus and started on 3% saline. Patient was seen by Nephrology and Dr. High is managing her sodium. I will defer further workup and management to Nephrology HerTSH is low but she has normal T4 and free T3 is pending urine osmolarity is pending, urine sodium is low as expected (3) Alcohol abuse: Code(s): F10.10 - Alcohol abuse, uncomplicated Status: Acute Assessment and Plan: Continue thiamine and folic acid Monitor for signs of withdrawal (4) Dysphagia: Code(s): R13.10 - Dysphagia, unspecified Status: Acute Assessment and Plan: Patient has history of dysphagia and has PEG tube although she continues to eat intermittently. She would not tell me what type of tube feed and at what rate she is supposed to be on. Patient was evaluated by speech and modified diet is now ordered She is on tube feeds. Once her p.o. intake improves her tube feeds can be weaned down. Increased tube feed rate to 30 mL/hour (5) Electrolyte abnormality: Code(s): E87.8 - Other disorders of electrolyte and fluid balance, not elsewhere classified Status: Acute Assessment and Plan: Likely secondary to poor p.o. dietary intake and significant alcohol abuse Low magnesium level has been replaced Calcium and potassium replacement has been ordered (6) Malnutrition: Code(s): E46 - Unspecified protein-calorie malnutrition Status: Acute Assessment and Plan: Patient was evaluated by dietitian for nutritional assessment and tube feeds initiated (7) Abdominal pain: Code(s): R10.9 - Unspecified abdominal pain Status: Acute Assessment and Plan: Normal lipase CT abdomen pelvis shows fatty liver and due to heavy alcohol abuse LFTs reviewed (8) Neck pain: Code(s): M54.2 - Cervicalgia Status: Acute Assessment and Plan: Patient has chronic neck pain and has had surgery in August. Analgesics ordered She has her call with her which she is supposed to wear p.r.n. as per directions from her orthopedic surgeon Plan DVT prophylaxis -Lovenox Nutrition -continue Tube Feeds Code Status - Full Code Case discussed with internal medicine physician and Nephrology Transfer out of ICU today Subjective Date/time seen: 11/15/22 Overnight events reviewed. Afebrile. States she feels sore from laying in bed. She would like to eat food as she feels she has been eating at home and should not have any difficulty. Tolerating tube feeds otherwise. She denies any other complaints. No recurrence of seizure. Patient denies fever, chest pain, shortness of breath, cough, nausea vomiting, abdominal pain,, diarrhea, headache or constipation. Review of system was positive for chronic neck pain and chronic back pain. She is requesting her [place] to be changed to Percocet. All other systems were reviewed and were negative Good urine output Other vitals acceptable Review of Systems Review of Systems: All systems reviewed & are unremarkable except as noted in HPI and below (HPI) Exam Narrative: General: Pt is alert awake and in NAD Lungs/Chest: Trachea central Clear BS B/L, No crackles or wheezing. Cardiac: RRR. Normal S1 S2. No murmurs Circulation: Pedal puls
--- NOTE | 2022-11-15 09:35 | P.PNNP_ITS ---
Progress Note: A&P Assessment and Plan (1) Hyponatremia: Code(s): E87.1 - Hypo-osmolality and hyponatremia Status: Acute Assessment and Plan: * known history * suspect acute on chronic * no recent labs to compare to * sodium 131 on discharge in 2020 * suspect secondary to poor oral intake and significant alcohol intake * however, chronic pain as well as pain medications could be playing a role as well * s/p normal saline IVFs and 3% saline (on admission) * s/p D5W and DDAVP to prevent overcorrection (on 11/14/22) * goal of therapy is rate of change of 6 - 8mmol/L in 24 hours * evaluation to date: * TSH low but FT3 and FT4 okay; total T3 pending * cortisol not done - will reorder * urine electrolytes prerena * serum osmo low and urine osmo pending * follow-up SPEP and UPEP * follow trend of repeat sodium levels (2) Seizure: Code(s): R56.9 - Unspecified convulsions Status: Acute Assessment and Plan: * secondary to hyponatremia (much like her episode 2 years ago) * mentation at baseline currently * seizure precautions (3) Alcohol abuse: Code(s): F10.10 - Alcohol abuse, uncomplicated Status: Acute Assessment and Plan: * on thiamine and folic acid * monitor for signs of withdrawal (4) Electrolyte abnormality: Code(s): E87.8 - Other disorders of electrolyte and fluid balance, not elsewhere classified Status: Acute Assessment and Plan: * noted issues with hypocalcmia, hypomagnesemia, and hypokalemia * presumably secondary to poor oral intake and significant alcohol abuse * replaced IV And per G-tube with improvement noted * follow repeat electrolytes (5) Malnutrition: Code(s): E46 - Unspecified protein-calorie malnutrition Status: Acute Assessment and Plan: * presumably reason she has PEG tube * dietary and speech therapy recommendations noted * oral intake along with tube feedings currently Will continue to follow Subjective Date/time seen: 11/15/22 09:35 Interval history: Follow-up for acute hyponatremia (possibly on chronic hyponatremia. Appears to be doing reasonably well; required several rounds of D5W IVFs as well as DDAVP to prevent overcorrection of sodium level; mentation seems to be stable; major complaint is that of chronic pain in her neck and back; no other issues/events overnight or earlier this morning. Exam Narrative: General: WD/WN female in NAD Heart: normal S1 and S2; no rub Lungs: clear to auscultation Abdomen: soft, nontender, nondistended, positive bowel sounds Extremities: no cyanosis or clubbing; no edema Skin: warm and dry Objective Data Vital Signs Vital Signs: Vital Signs Temp Pulse Resp BP Pulse Ox O2 Del Method 11/15/22 08:00 73 11/15/22 08:00 99.1 F 77 16 105/72 99 11/15/22 06:00 99.1 F 77 16 105/70 100 11/15/22 06:00 77 11/14/22 21:18 97 Room Air 11/15/22 04:00 74 11/15/22 04:00 Room Air 11/15/22 04:00 99 F 73 15 112/75 95 11/15/22 02:00 98.5 F 78 24 H 87/57 L 97 11/15/22 02:00 78 11/15/22 00:00 Room Air 11/15/22 00:00 98.6 F 64 18 106/71 98 11/15/22 00:00 64 11/14/22 23:33 98.6 F 71 14 93/62 L 99 11/14
--- NOTE | 2022-11-15 09:35 | PM.PNNEP ---
Progress Note: A&P Assessment and Plan (1) Hyponatremia: Code(s): E87.1 - Hypo-osmolality and hyponatremia Status: Acute Assessment and Plan: known history suspect acute on chronic no recent labs to compare to sodium 131 on discharge in 2020 suspect secondary to poor oral intake and significant alcohol intake however, chronic pain as well as pain medications could be playing a role as well s/p normal saline IVFs and 3% saline (on admission) s/p D5W and DDAVP to prevent overcorrection (on 11/14/22) goal of therapy is rate of change of 6 - 8mmol/L in 24 hours evaluation to date: TSH low but FT3 and FT4 okay; total T3 pending cortisol not done - will reorder urine electrolytes prerena serum osmo low and urine osmo pending follow-up SPEP and UPEP follow trend of repeat sodium levels (2) Seizure: Code(s): R56.9 - Unspecified convulsions Status: Acute Assessment and Plan: secondary to hyponatremia (much like her episode 2 years ago) mentation at baseline currently seizure precautions (3) Alcohol abuse: Code(s): F10.10 - Alcohol abuse, uncomplicated Status: Acute Assessment and Plan: on thiamine and folic acid monitor for signs of withdrawal (4) Electrolyte abnormality: Code(s): E87.8 - Other disorders of electrolyte and fluid balance, not elsewhere classified Status: Acute Assessment and Plan: noted issues with hypocalcmia, hypomagnesemia, and hypokalemia presumably secondary to poor oral intake and significant alcohol abuse replaced IV And per G-tube with improvement noted follow repeat electrolytes (5) Malnutrition: Code(s): E46 - Unspecified protein-calorie malnutrition Status: Acute Assessment and Plan: presumably reason she has PEG tube dietary and speech therapy recommendations noted oral intake along with tube feedings currently Will continue to follow Subjective Date/time seen: 11/15/22 09:35 Interval history: Follow-up for acute hyponatremia (possibly on chronic hyponatremia. Appears to be doing reasonably well; required several rounds of D5W IVFs as well as DDAVP to prevent overcorrection of sodium level; mentation seems to be stable; major complaint is that of chronic pain in her neck and back; no other issues/events overnight or earlier this morning. Exam Narrative: General: WD/WN female in NAD Heart: normal S1 and S2; no rub Lungs: clear to auscultation Abdomen: soft, nontender, nondistended, positive bowel sounds Extremities: no cyanosis or clubbing; no edema Skin: warm and dry Objective Data Vital Signs Vital Signs: Vital Signs Temp Pulse Resp BP Pulse Ox O2 Del Method 11/15/22 08:00 73 11/15/22 08:00 99.1 F 77 16 105/72 99 11/15/22 06:00 99.1 F 77 16 105/70 100 11/15/22 06:00 77 11/14/22 21:18 97 Room Air 11/15/22 04:00 74 11/15/22 04:00 Room Air 11/15/22 04:00 99 F 73 15 112/75 95 11/15/22 02:00 98.5 F 78 24 H 87/57 L 97 11/15/22 02:00 78 11/15/22 00:00 Room Air 11/15/22 00:00 98.6 F 64 18 106/71 98 11/15/22 00:00 64 11/14/22 23:33 98.6 F 71 14 93/62 L 99 11/14/22 22:00 98.9 F 69 14 77/53 L 97 11/14/22 22:00 69 11/14/22 20:00 Room Air 11/14/22 20:00 67 11/14/22 18:00 98.3 F 65 23 H 85/61 L 100 11/14/22 16:00 98.8 F 71 14 80/63 L 98 11/14/22 14:00 98.4 F 59 L 15 95/69 L 99 11/14/22 20:00 98.4 F 63 15 76/56 L 96 11/14/22 18:00 69 11/14/22 18:00 65 11/14/22 16:00 71 Intake/Output Intake/Output: Intake & Output 11/12/22 11/13/22 11/14/22 11/15/22 23:59 23:59 23:59 23:59 Intake Total 1100 1619 Output Total 4600 800 Balance -3500 819 Meds/Results Medications: Active Medications Generic Name Dose Route Start Last Admin Trade Name
--- NOTE | 2022-11-15 09:54 | PM.IMPN ---
Progress Note: A&P Assessment and Plan (1) Seizure: Code(s): R56.9 - Unspecified convulsions Status: Acute Assessment and Plan: Seizure likely secondary to hyponatremia No recurrence in ICU Continue seizure precautions Patient now alert oriented Management hyponatremia as per shoes hand sewer P.r.n. [place] (2) Hyponatremia: Code(s): E87.1 - Hypo-osmolality and hyponatremia Status: Acute Assessment and Plan: Patient was seen by Nephrology and Dr. High is managing her sodium. I will defer further workup and management to Nephrology HerTSH is low but she has normal T4 and free T3 is pending urine osmolarity is pending, urine sodium is low as expected (3) Alcohol abuse: Code(s): F10.10 - Alcohol abuse, uncomplicated Status: Acute Assessment and Plan: Continue thiamine and folic acid Monitor for signs of withdrawal (4) Dysphagia: Code(s): R13.10 - Dysphagia, unspecified Status: Acute Assessment and Plan: Patient has history of dysphagia and has PEG tube although she continues to eat intermittently. Patient was evaluated by speech and modified diet is now ordered She is on tube feeds. Once her p.o. intake improves her tube feeds can be weaned down. Increased tube feed rate to 30 mL/hour (5) Electrolyte abnormality: Code(s): E87.8 - Other disorders of electrolyte and fluid balance, not elsewhere classified Status: Acute Assessment and Plan: Likely secondary to poor p.o. dietary intake and significant alcohol abuse Low magnesium level has been replaced Calcium and potassium replacement has been ordered (6) Malnutrition: Code(s): E46 - Unspecified protein-calorie malnutrition Status: Acute Assessment and Plan: Patient was evaluated by dietitian for nutritional assessment and tube feeds initiated (7) Abdominal pain: Code(s): R10.9 - Unspecified abdominal pain Status: Acute Assessment and Plan: Normal lipase CT abdomen pelvis shows fatty liver and due to heavy alcohol abuse LFTs reviewed (8) Neck pain: Code(s): M54.2 - Cervicalgia Status: Acute Assessment and Plan: Patient has chronic neck pain and has had surgery in August. Analgesics ordered She has her call with her which she is supposed to wear p.r.n. as per directions from her orthopedic surgeon Subjective Date/time seen: 11/15/22 09:54 Interval history: Awake alert oriented Review of Systems Review of Systems: All systems reviewed & are unremarkable except as noted in HPI and below (HPI) Exam Narrative: General: Pt is alert awake and in NAD Lungs/Chest: Trachea central Clear BS B/L, No crackles or wheezing. Cardiac: RRR. Normal S1 S2. No murmurs Circulation: Pedal pulses are intact and symmetrical. Abdomen: Normal bowel sounds.. Soft. NT. ND. PEG tube in place, very mild diffuse tenderness all around the abdomen, no guarding or rigidity Extremities: No clubbing, cyanosis or edema. Warm : Soni in place Neurologic: Follows commands. Moves all 4 extremities PERRL AO x3 moves all 4 extremities, poor effort Skin: No Rash HEENT: Oral mucosa is wet, small abrasion on the right side of her tongue Objective Data Vital Signs Vital Signs: Vital Signs - 24 hr 11/14/22 10:00 11/14/22 11:41 11/14/22 10:00 Temperature 97.9 F Pulse Rate 87 119 H 76 Respiratory Rate 16 18 Blood Pressure 110/71 96/72 L Pulse Oximetry 99 98 Oxygen Delivery 11/14/22 12:00 11/14/22 16:00 11/14/22 18:00 Temperature Pulse Rate 117 H 71 65 Respiratory Rate Blood Pressure Pulse Oximetry Oxygen Delivery 11/14/22 18:00 11/14/22 20:00 11/14/22 14:00 Temperature 98.4 F 98.4 F Pulse Rate 69 63 59 L Respiratory Rate 15 15 Blood Pressure 76/56 L 95/69 L Pulse Oximetry 96 99 Oxygen Delivery 11/14/22 16:00 11/14/22 18:00 11/14/22 20:00 Temperature 98.8 F 98.3 F Pul
[2022-11-15] MEDS: oxyCODONE/ACETAMINOPHEN (*CRX) 5-325 MG TABLET 1 TABLET PO ×3 (10:42→21:11)
--- NOTE | 2022-11-15 12:10 | PCNFU ---
Nutrition Follow-Up Complete: Inadequate energy intake related to pt not administering tube feeds and dietary lifestyle prior to admission as evidenced by family report, heavy alcohol use, minimal po intake. Goal: Meet estimated needs Patient is progressing towards goal.We will continue current goal. Pt current nutrition is Pureed, Level 4 with Osmolite 1.5 at 30 ml/hr. Last recorded weight is 59.1 kg, down from 65 kg on admit. Bowel Motility:No BM reported. Labs Reviewed:Glu 134, Na 123, Cr 0.5,Ca 6.6,Mg 2.6 Meds Noted:Lovenox, Folic Acid, Thiamine. Skin: WNL Additional Notes: Patient current with PEG feedings of Osmolite at 30 ml/hr. Diet order has advanced to Pureed, Level 4 per speech recommendations. Patient is currently working on a tray at this time. Tube feedings are being tolerated. Tube feeding recommendations for bolus feedings: Osmolite 1.5-5 cans daily, providing 1775 kcals/75 gms protein/1170 ml water. Due to Na 123 recommend flush at 30 ml q 4 hours. Adjust as Na lab improves. Monitor tube feeding, labs for refeeding syndrome, Reassess in every Friday and Friday.
[2022-11-15] MEDS: TIZANIDINE HCL 2 MG TABLET PO ×2 (13:45→22:14)
[2022-11-15 15:40] LABS: Anion Gap 4 mmol/L (8-16); Blood Urea Nitrogen 3 mg/dL (7-17); Calcium 7.5 mg/dL (8.4-10.2); Carbon Dioxide 26 mmol/L (22-30); Chloride 92 mmol/L (98-107); Estimated CRCL calculation 98 ml/min; Estimated Glomerular Filt Rate > 60; Glucose 134 mg/dL (65-110); Potassium 4.9 mmol/L (3.4-5.0); Sodium 122 mmol/L (137-145)
[2022-11-15 21:30] LABS: Anion Gap 4 mmol/L (8-16); Blood Urea Nitrogen 4 mg/dL (7-17); Carbon Dioxide 27 mmol/L (22-30); Chloride 92 mmol/L (98-107); Estimated CRCL calculation 98 ml/min; Estimated Glomerular Filt Rate > 60; Glucose 134 mg/dL (65-110); Potassium 4.8 mmol/L (3.4-5.0); Sodium 123 mmol/L (137-145)
[2022-11-16] VITALS (18 sets, daily range): BP systolic 85–124; BP diastolic 64–94; PULSE 61–76; RESP 11–24; TEMP 36.1–36.9; O2SAT 96–100
[2022-11-16] MEDS: oxyCODONE/ACETAMINOPHEN (*CRX) 5-325 MG TABLET 1 TABLET PO ×5 (03:36→22:06)
[2022-11-16 04:51] LABS: Basophils Absolute Auto 0.1 K/mm3 (0.0-0.1); Basophils Percent Auto 1.2 % (0.2-1.2); Eosinophils Absolute Auto 0.4 K/mm3 (0-0.3); Eosinophils Percent Auto 5.2 % (0-4.4); Hematocrit 33.5 % (37.0-47.0); Hemoglobin 11.6 g/dL (12.0-15.0); Immature Granulocyte Absolute 0.04 K/mm3 (0.00-0.031); Immature Granulocyte Percent A 0.6 % (0-0.5); Lymphocytes Absolute Auto 1.23 K/mm3 (0.9-3.2); Lymphocytes Percent Auto 17.9 % (18.3-44.2); Mean Corpuscular HGB Conc 34.6 g/dl (32-36); Mean Corpuscular Volume 95.4 fl (80-100); Mean Platelet Volume 8.8 fl (7.4-10.4); Monocytes Percent Auto 14.1 % (2.6-8.5); Neutrophils Absolute Auto 4.2 K/mm3 (1.3-6.7); Platelet Count Result 345 k/mm3 (150-375); Red Blood Count 3.51 M/mm3 (4.2-5.4); Red Cell Distribution Width 12.8 % (11.5-14.5); White Blood Count 6.9 K/mm3 (4.5-10.0)
[2022-11-16 05:05] LABS: Alanine Aminotransferase 21 U/L (6-35); Albumin Level 3.3 g/dL (3.5-5.1); Alkaline Phosphatase 141 U/L (38-126); Anion Gap 6 mmol/L (8-16); Aspartate Amino Transferase 46 U/L (14-36); Bilirubin,Total 0.5 mg/dL (0.2-1.3); Blood Urea Nitrogen 5 mg/dL (7-17); Calcium 8.2 mg/dL (8.4-10.2); Carbon Dioxide 25 mmol/L (22-30); Chloride 96 mmol/L (98-107); Estimated CRCL calculation 83 ml/min; Estimated Glomerular Filt Rate > 60; Glucose 123 mg/dL (65-110); Magnesium 1.6 mg/dL (1.6-2.3); Potassium 4.8 mmol/L (3.4-5.0); Sodium 127 mmol/L (137-145)
[2022-11-16] MEDS: BACLOFEN 5 MG TABLET PO ×3 (06:04→22:06)
[2022-11-16] MEDS: TIZANIDINE HCL 2 MG TABLET PO ×3 (06:04→22:06)
[2022-11-16] MEDS: HYDROXYCHLOROQUINE SULFATE 200 MG TABLET PO ×2 (08:28→17:24)
[2022-11-16] MEDS: FOLIC ACID 1 MG TABLET FEED TUBE (08:28)
[2022-11-16] MEDS: ENOXAPARIN 40 MG/0.4 ML SYRINGE SUB-Q (08:29)
[2022-11-16] MEDS: CALCIUM/VITAMIN D 250 MG TABLET 2 TABLET FEED TUBE ×2 (08:29→17:24)
[2022-11-16] MEDS: THIAMINE HCL 200 MG/2 ML VIAL 100 MG IV PUSH (08:29)
[2022-11-16] MEDS: MORPHINE SULFATE (*CRX) 2 MG/ML INJ IV PUSH ×2 (10:36→15:41)
--- NOTE | 2022-11-16 10:47 | PM.IMPN ---
Progress Note: A&P Assessment and Plan (1) Seizure: Code(s): R56.9 - Unspecified convulsions Status: Acute Assessment and Plan: Seizure likely secondary to hyponatremia No recurrence in ICU Continue seizure precautions Patient now alert oriented Management hyponatremia as per family law legal assistant (2) Hyponatremia: Code(s): E87.1 - Hypo-osmolality and hyponatremia Status: Acute Assessment and Plan: Improving. patient was seen by Nephrology and Dr. High is managing her sodium. I will defer further workup and management to Nephrology (3) Alcohol abuse: Code(s): F10.10 - Alcohol abuse, uncomplicated Status: Acute Assessment and Plan: Continue thiamine and folic acid Monitor for signs of withdrawal (4) Dysphagia: Code(s): R13.10 - Dysphagia, unspecified Status: Acute Assessment and Plan: Patient has history of dysphagia and has PEG tube although she continues to eat intermittently. Patient was evaluated by speech and modified diet is now ordered She is on tube feeds. Once her p.o. intake improves her tube feeds can be weaned down. Increased tube feed rate to 30 mL/hour (5) Malnutrition: Code(s): E46 - Unspecified protein-calorie malnutrition Status: Acute Assessment and Plan: Patient was evaluated by dietitian for nutritional assessment and tube feeds initiated (6) Abdominal pain: Code(s): R10.9 - Unspecified abdominal pain Status: Acute Assessment and Plan: Normal lipase CT abdomen pelvis shows fatty liver and due to heavy alcohol abuse LFTs reviewed (7) Neck pain: Code(s): M54.2 - Cervicalgia Status: Acute Assessment and Plan: Patient has chronic neck pain and has had surgery in August. Analgesics ordered Subjective Date/time seen: 11/16/22 10:47 Interval history: No new events overnight. Stable Review of Systems Review of Systems: All systems reviewed & are unremarkable except as noted in HPI and below (HPI) Exam Narrative: General: WD/WN female in NAD Heart: normal S1 and S2; no rub Lungs: clear to auscultation Abdomen: soft, nontender, nondistended, positive bowel sounds Extremities: no cyanosis or clubbing; no edema Skin: warm and dry Objective Data Vital Signs Vital Signs: Vital Signs - 24 hr 11/15/22 11:59 11/15/22 12:00 11/15/22 12:00 Temperature 99.6 F Pulse Rate 84 82 Respiratory Rate 12 Blood Pressure 130/77 Pulse Oximetry 99 97 Oxygen Delivery Room Air 11/15/22 14:00 11/15/22 16:00 11/15/22 16:00 Temperature Pulse Rate 78 66 Respiratory Rate Blood Pressure Pulse Oximetry 99 Oxygen Delivery Room Air 11/15/22 16:00 11/15/22 18:00 11/15/22 20:30 Temperature 99.4 F Pulse Rate 68 77 80 Respiratory Rate 14 16 Blood Pressure 107/68 Pulse Oximetry 97 98 Oxygen Delivery Room Air 11/15/22 20:30 11/15/22 22:54 11/15/22 22:57 Temperature 99.4 F Pulse Rate 80 83 84 Respiratory Rate 16 Blood Pressure 100/66 Pulse Oximetry 98 Oxygen Delivery 11/16/22 00:45 11/16/22 00:45 11/16/22 00:00 Temperature 98.4 F Pulse Rate 75 75 67 Respiratory Rate 18 18 Blood Pressure 106/66 Pulse Oximetry 98 98 Oxygen Delivery Room Air 11/16/22 02:51 11/16/22 04:00 11/16/22 04:00 Temperature Pulse Rate 66 71 70 Respiratory Rate 16 Blood Pressure Pulse Oximetry 96 Oxygen Delivery Room Air 11/16/22 04:00 11/16/22 06:00 11/16/22 08:00 Temperature 98.4 F Pulse Rate 70 72 61 Respiratory Rate 16 13 Blood Pressure 114/81 85/64 L Pulse Oximetry 96 97 Oxygen Delivery 11/16/22 08:00 11/16/22 08:00 11/16/22 09:57 Temperature Pulse Rate 74 65 73 Respiratory Rate 15 Blood Pressure Pulse Oximetry 98 Oxygen Delivery Room Air Intake/Output Intake/Output: Intake & Output 11/13/22 11/14/22 11/15/22 11/16/22 23:59 23:5
--- NOTE | 2022-11-16 11:07 | P.PNNP_ITS ---
Progress Note: A&P Assessment and Plan (1) Hyponatremia: Code(s): E87.1 - Hypo-osmolality and hyponatremia Status: Acute Assessment and Plan: * The patient probably has chronic hyponatremia. * suspect acute on chronic * no recent labs to compare to * sodium 131 on discharge in 2020 * suspect secondary to poor oral intake and significant alcohol intake * however, chronic pain as well as pain medications could be playing a role as well * s/p normal saline IVFs and 3% saline (on admission) * s/p D5W and DDAVP to prevent overcorrection (on 11/14/22) * goal of therapy is rate of change of 6 - 8mmol/L in 24 hours * evaluation to date: * TSH low but FT3 and FT4 okay; total T3 pending * cortisol pending * urine electrolytes prerenal * serum osmo low and urine osmo pending * Await sPEP and UPEP * Sodium is rising gradually. * Urine output is somewhat high. * She may be auto correcting * follow trend of repeat sodium levels (2) Seizure: Code(s): R56.9 - Unspecified convulsions Status: Acute Assessment and Plan: * secondary to hyponatremia (much like her episode 2 years ago) * mentation at baseline currently * seizure precautions (3) Alcohol abuse: Code(s): F10.10 - Alcohol abuse, uncomplicated Status: Acute Assessment and Plan: * on thiamine and folic acid * monitor for signs of withdrawal (4) Electrolyte abnormality: Code(s): E87.8 - Other disorders of electrolyte and fluid balance, not elsewhere classified Status: Acute Assessment and Plan: * noted issues with hypocalcmia, hypomagnesemia, and hypokalemia * The latter 2 are back to normal. * The calcium is still mildly low but so is the albumin. (5) Malnutrition: Code(s): E46 - Unspecified protein-calorie malnutrition Status: Acute Assessment and Plan: * presumably reason she has PEG tube * dietary and speech therapy recommendations noted * oral intake along with tube feedings currently Will continue to follow Subjective Date/time seen: 11/16/22 11:07 Interval history: Patient has aches and pains everywhere. He thinks it is from the seizure. She has no chest pain or shortness of breath. She is eating fairly well. Exam Narrative: General: WD/WN female in NAD Heart: normal S1 and S2; no rub or gallop Lungs: clear to auscultation Abdomen: soft, nontender, nondistended, positive bowel sounds Extremities: no cyanosis or clubbing; no edema Skin: warm and dry without rash Objective Data Vital Signs Vital Signs: Vital Signs - 24 hr 11/15/22 11:59 11/15/22 12:00 11/15/22 12:00 Temperature 99.6 F Pulse Rate 84 82 Respiratory Rate 12 Blood Pressure 130/77 Pulse Oximetry 99 97 Oxygen Delivery Room Air 11/15/22 14:00 11/15/22 16:00 11/15/22 16:00 Temperature Pulse Rate 78 66 Respiratory Rate Blood Pressure Pulse Oximetry 99 Oxygen Delivery Room Air 11/15/22 16:00 11/15/22 18:00 11/15/22 20:30 Temperature 99.4 F Pulse Rate 68 77 80 Respiratory Rate 14 16 Blood Pressure 107/68 Pulse Oximetry 97 98 Oxygen Delivery Room Air 11/15/22
--- NOTE | 2022-11-16 11:07 | PM.PNNEP ---
Progress Note: A&P Assessment and Plan (1) Hyponatremia: Code(s): E87.1 - Hypo-osmolality and hyponatremia Status: Acute Assessment and Plan: The patient probably has chronic hyponatremia. suspect acute on chronic no recent labs to compare to sodium 131 on discharge in 2020 suspect secondary to poor oral intake and significant alcohol intake however, chronic pain as well as pain medications could be playing a role as well s/p normal saline IVFs and 3% saline (on admission) s/p D5W and DDAVP to prevent overcorrection (on 11/14/22) goal of therapy is rate of change of 6 - 8mmol/L in 24 hours evaluation to date: TSH low but FT3 and FT4 okay; total T3 pending cortisol pending urine electrolytes prerenal serum osmo low and urine osmo pending Await sPEP and UPEP Sodium is rising gradually. Urine output is somewhat high. She may be auto correcting follow trend of repeat sodium levels (2) Seizure: Code(s): R56.9 - Unspecified convulsions Status: Acute Assessment and Plan: secondary to hyponatremia (much like her episode 2 years ago) mentation at baseline currently seizure precautions (3) Alcohol abuse: Code(s): F10.10 - Alcohol abuse, uncomplicated Status: Acute Assessment and Plan: on thiamine and folic acid monitor for signs of withdrawal (4) Electrolyte abnormality: Code(s): E87.8 - Other disorders of electrolyte and fluid balance, not elsewhere classified Status: Acute Assessment and Plan: noted issues with hypocalcmia, hypomagnesemia, and hypokalemia The latter 2 are back to normal. The calcium is still mildly low but so is the albumin. (5) Malnutrition: Code(s): E46 - Unspecified protein-calorie malnutrition Status: Acute Assessment and Plan: presumably reason she has PEG tube dietary and speech therapy recommendations noted oral intake along with tube feedings currently Will continue to follow Subjective Date/time seen: 11/16/22 11:07 Interval history: Patient has aches and pains everywhere. He thinks it is from the seizure. She has no chest pain or shortness of breath. She is eating fairly well. Exam Narrative: General: WD/WN female in NAD Heart: normal S1 and S2; no rub or gallop Lungs: clear to auscultation Abdomen: soft, nontender, nondistended, positive bowel sounds Extremities: no cyanosis or clubbing; no edema Skin: warm and dry without rash Objective Data Vital Signs Vital Signs: Vital Signs - 24 hr 11/15/22 11:59 11/15/22 12:00 11/15/22 12:00 Temperature 99.6 F Pulse Rate 84 82 Respiratory Rate 12 Blood Pressure 130/77 Pulse Oximetry 99 97 Oxygen Delivery Room Air 11/15/22 14:00 11/15/22 16:00 11/15/22 16:00 Temperature Pulse Rate 78 66 Respiratory Rate Blood Pressure Pulse Oximetry 99 Oxygen Delivery Room Air 11/15/22 16:00 11/15/22 18:00 11/15/22 20:30 Temperature 99.4 F Pulse Rate 68 77 80 Respiratory Rate 14 16 Blood Pressure 107/68 Pulse Oximetry 97 98 Oxygen Delivery Room Air 11/15/22 20:30 11/15/22 22:54 11/15/22 22:57 Temperature 99.4 F Pulse Rate 80 83 84 Respiratory Rate 16 Blood Pressure 100/66 Pulse Oximetry 98 Oxygen Delivery 11/16/22 00:45 11/16/22 00:45 11/16/22 00:00 Temperature 98.4 F Pulse Rate 75 75 67 Respiratory Rate 18 18 Blood Pressure 106/66 Pulse Oximetry 98 98 Oxygen Delivery Room Air 11/16/22 02:51 11/16/22 04:00 11/16/22 04:00 Temperature Pulse Rate 66 71 70 Respiratory Rate 16 Blood Pressure Pulse Oximetry 96 Oxygen Delivery Room Air 11/16/22 04:00 11/16/22 06:00 11/16/22 08:00 Temperature 98.4 F Pulse Rate 70 72 61 Respiratory Rate 16 13 Blood Pressure 114/81 85/64 L Pulse Oximetry 96 97 Oxygen Delivery 11/16/22 08:00 11/16/22 08:00 11/16/22 09:57 Temperature
--- NOTE | 2022-11-16 11:19 | PCSTNOTE ---
Therapist brought patient written list of swallowing exercises to be completed daily, if possible. Patient agreed to attempt exercises. She reports she is on tube feedings now and has only small appetite for oral feedings but has tried a few bites at breakfast. Therapist requested she take several bites more than she thinks she can to encourage increased oral intake and practice with mastication/swallowing. She voiced understanding.
[2022-11-16 18:33] LABS: Sodium 129 mmol/L (137-145)
[2022-11-17] VITALS (18 sets, daily range): BP systolic 90–141; BP diastolic 61–96; PULSE 62–87; RESP 16–18; TEMP 36.2–36.6; O2SAT 96–100
[2022-11-17] MEDS: oxyCODONE/ACETAMINOPHEN (*CRX) 5-325 MG TABLET 1 TABLET PO ×5 (04:36→22:10)
[2022-11-17 04:44] LABS: Basophils Absolute Auto 0.1 K/mm3 (0.0-0.1); Basophils Percent Auto 1.2 % (0.2-1.2); Eosinophils Absolute Auto 0.4 K/mm3 (0-0.3); Eosinophils Percent Auto 5.8 % (0-4.4); Hematocrit 33.8 % (37.0-47.0); Hemoglobin 11.6 g/dL (12.0-15.0); Immature Granulocyte Absolute 0.07 K/mm3 (0.00-0.031); Lymphocytes Absolute Auto 1.31 K/mm3 (0.9-3.2); Lymphocytes Percent Auto 17.9 % (18.3-44.2); Mean Corpuscular HGB Conc 34.3 g/dl (32-36); Mean Corpuscular Hemoglobin 32.8 pg (26-34); Mean Corpuscular Volume 95.5 fl (80-100); Mean Platelet Volume 8.5 fl (7.4-10.4); Monocytes Absolute Auto 0.9 K/mm3 (0.1-0.6); Monocytes Percent Auto 12.5 % (2.6-8.5); Neutrophils Absolute Auto 4.5 K/mm3 (1.3-6.7); Neutrophils Percent Auto 61.6 % (45.5-73.1); Platelet Count Result 342 k/mm3 (150-375); Red Blood Count 3.54 M/mm3 (4.2-5.4); White Blood Count 7.3 K/mm3 (4.5-10.0)
[2022-11-17 04:57] LABS: Alanine Aminotransferase 21 U/L (6-35); Albumin Level 3.5 g/dL (3.5-5.1); Alkaline Phosphatase 135 U/L (38-126); Anion Gap 7 mmol/L (8-16); Aspartate Amino Transferase 40 U/L (14-36); Bilirubin,Total 0.5 mg/dL (0.2-1.3); Blood Urea Nitrogen 8 mg/dL (7-17); Calcium 8.6 mg/dL (8.4-10.2); Carbon Dioxide 24 mmol/L (22-30); Chloride 97 mmol/L (98-107); Estimated CRCL calculation 98 ml/min; Estimated Glomerular Filt Rate > 60; Glucose 109 mg/dL (65-110); Magnesium 1.4 mg/dL (1.6-2.3); Phosphorus 5.9 mg/dL (2.5-4.5); Potassium 4.7 mmol/L (3.4-5.0); Sodium 128 mmol/L (137-145)
[2022-11-17] MEDS: BACLOFEN 5 MG TABLET PO ×2 (05:21→17:10)
[2022-11-17] MEDS: TIZANIDINE HCL 2 MG TABLET PO ×3 (05:21→21:02)
[2022-11-17] MEDS: HYDROXYCHLOROQUINE SULFATE 200 MG TABLET PO ×2 (08:45→17:10)
[2022-11-17] MEDS: CALCIUM/VITAMIN D 250 MG TABLET 2 TABLET FEED TUBE ×2 (08:45→17:10)
[2022-11-17] MEDS: FOLIC ACID 1 MG TABLET FEED TUBE (08:45)
[2022-11-17] MEDS: ENOXAPARIN 40 MG/0.4 ML SYRINGE SUB-Q (08:46)
[2022-11-17] MEDS: THIAMINE HCL 200 MG/2 ML VIAL 100 MG IV PUSH (08:46)
[2022-11-17] MEDS: MORPHINE SULFATE (*CRX) 2 MG/ML INJ IV PUSH ×2 (10:55→19:54)
--- NOTE | 2022-11-17 11:52 | P.PNNP_ITS ---
Progress Note: A&P Assessment and Plan (1) Hyponatremia: Code(s): E87.1 - Hypo-osmolality and hyponatremia Status: Acute Assessment and Plan: * It is unclear whether this is acute hyponatremia alone or acute on chronic. * In case it is chronic: There is no sign of cancer. She should be sure she is up-to-date with her cancer surveillance. No sign of DOG OBEDIENCE INSTRUCTOR issues. CT brain was negative. No sign of pulmonary disease. Her chest x-ray was negative * suspect acute on chronic * The patient was able to pull up the sodium on her phone from discharge when she was at [facility] in August and the sodium was 139. * However, the sodium was 131 on discharge in 2020 * suspect admission exacerbation secondary to poor oral intake and significant alcohol intake * however, chronic pain as well as pain medications could be playing a role as well * evaluation to date: * TSH low but FT3 and FT4 okay; total T3 pending * Cortisol level still not back. Will reorder this. This is not a trivial issue because the patient has been often on steroids for years because of her rheumatoid arthritis. * urine electrolytes prerenal * serum osmo low and urine osmo pending * Await sPEP and UPEP * Sodium seems to have stabilized at around 1:28 a.m.. * Urine output is somewhat high still.. If she were auto-correcting then the sodium would be rising. She might be drinking some fluid which is unrecorded. She also is getting tube feedings. Will fluid restrict officially * follow trend of repeat sodium levels (2) Seizure: Code(s): R56.9 - Unspecified convulsions Status: Acute Assessment and Plan: * secondary to hyponatremia (much like her episode 2 years ago) * mentation at baseline currently * seizure precautions (3) Alcohol abuse: Code(s): F10.10 - Alcohol abuse, uncomplicated Status: Acute Assessment and Plan: * on thiamine and folic acid * No signs of withdrawal so far (4) Electrolyte abnormality: Code(s): E87.8 - Other disorders of electrolyte and fluid balance, not elsewhere classified Status: Acute Assessment and Plan: * noted issues with hypocalcmia, hypomagnesemia, and hypokalemia * The latter 2 are back to normal. * The calcium is still mildly low but so is the albumin. Will check an ionized calcium (5) Malnutrition: Code(s): E46 - Unspecified protein-calorie malnutrition Status: Acute Assessment and Plan: * presumably reason she has PEG tube * dietary and speech therapy recommendations noted * oral intake along with tube feedings currently Will continue to follow Subjective Date/time seen: 11/17/22 11:52 Interval history: Patient has aches and pains everywhere. She is eating better. She has no chest pain or shortness of breath. Exam Narrative: General: WD/WN female in NAD Heart: normal S1 and S2; no rub or gallop Lungs: clear bilaterally Abdomen: soft, nontender, nondistended, positive bowel sounds Extremities: no cyanosis or clubbing; no edema Skin: No rash Objective Data Vital Signs Vital Signs: Vital Signs - 24 hr 11/16/22 11:59 11/16/22 12:00 11/16/22 14:00 Temperature 98 F Pulse Rate 70 66 76 Respiratory Rate 24 H Blood Pressure 118/94 H Pulse Oximetry 99 Oxygen Delivery
--- NOTE | 2022-11-17 11:52 | PM.PNNEP ---
Progress Note: A&P Assessment and Plan (1) Hyponatremia: Code(s): E87.1 - Hypo-osmolality and hyponatremia Status: Acute Assessment and Plan: It is unclear whether this is acute hyponatremia alone or acute on chronic. In case it is chronic: There is no sign of cancer. She should be sure she is up-to-date with her cancer surveillance. No sign of BLUE [employer] TRIMMER issues. CT brain was negative. No sign of pulmonary disease. Her chest x-ray was negative suspect acute on chronic The patient was able to pull up the sodium on her phone from discharge when she was at [facility] in August and the sodium was 139. However, the sodium was 131 on discharge in 2020 suspect admission exacerbation secondary to poor oral intake and significant alcohol intake however, chronic pain as well as pain medications could be playing a role as well evaluation to date: TSH low but FT3 and FT4 okay; total T3 pending Cortisol level still not back. Will reorder this. This is not a trivial issue because the patient has been often on steroids for years because of her rheumatoid arthritis. urine electrolytes prerenal serum osmo low and urine osmo pending Await sPEP and UPEP Sodium seems to have stabilized at around 1:28 a.m.. Urine output is somewhat high still.. If she were auto-correcting then the sodium would be rising. She might be drinking some fluid which is unrecorded. She also is getting tube feedings. Will fluid restrict officially follow trend of repeat sodium levels (2) Seizure: Code(s): R56.9 - Unspecified convulsions Status: Acute Assessment and Plan: secondary to hyponatremia (much like her episode 2 years ago) mentation at baseline currently seizure precautions (3) Alcohol abuse: Code(s): F10.10 - Alcohol abuse, uncomplicated Status: Acute Assessment and Plan: on thiamine and folic acid No signs of withdrawal so far (4) Electrolyte abnormality: Code(s): E87.8 - Other disorders of electrolyte and fluid balance, not elsewhere classified Status: Acute Assessment and Plan: noted issues with hypocalcmia, hypomagnesemia, and hypokalemia The latter 2 are back to normal. The calcium is still mildly low but so is the albumin. Will check an ionized calcium (5) Malnutrition: Code(s): E46 - Unspecified protein-calorie malnutrition Status: Acute Assessment and Plan: presumably reason she has PEG tube dietary and speech therapy recommendations noted oral intake along with tube feedings currently Will continue to follow Subjective Date/time seen: 11/17/22 11:52 Interval history: Patient has aches and pains everywhere. She is eating better. She has no chest pain or shortness of breath. Exam Narrative: General: WD/WN female in NAD Heart: normal S1 and S2; no rub or gallop Lungs: clear bilaterally Abdomen: soft, nontender, nondistended, positive bowel sounds Extremities: no cyanosis or clubbing; no edema Skin: No rash Objective Data Vital Signs Vital Signs: Vital Signs - 24 hr 11/16/22 11:59 11/16/22 12:00 11/16/22 14:00 Temperature 98 F Pulse Rate 70 66 76 Respiratory Rate 24 H Blood Pressure 118/94 H Pulse Oximetry 99 Oxygen Delivery 11/16/22 15:50 11/16/22 16:00 11/16/22 16:00 Temperature 97.6 F Pulse Rate 76 66 71 Respiratory Rate 16 Blood Pressure 111/84 Pulse Oximetry 100 98 Oxygen Delivery Room Air 11/16/22 18:00 11/16/22 20:10 11/16/22 20:27 Temperature 97.4 F L Pulse Rate 74 75 Respiratory Rate 16 Blood Pressure 124/86 Pulse Oximetry 98 Oxygen Delivery Room Air 11/16/22 20:00 11/16/22 22:00 11/16/22 23:46 Temperature 97 F L Pulse Rate 69 74 71 Respiratory Rate 16 Blood Pressure 102/69 Pulse Oximetry 97 Oxygen Delivery 11/17/22 00:00 11/17/22 00:00 11/17/22 02:00 Temperature
--- NOTE | 2022-11-17 16:35 | PM.IMPN ---
Progress Note: A&P Assessment and Plan (1) Neck pain: Code(s): M54.2 - Cervicalgia Status: Acute Assessment and Plan: Patient has chronic neck pain and has had surgery in August. Analgesics ordered (2) Abdominal pain: Code(s): R10.9 - Unspecified abdominal pain Status: Acute Assessment and Plan: Normal lipase CT abdomen pelvis shows fatty liver and due to heavy alcohol abuse LFTs reviewed (3) Malnutrition: Code(s): E46 - Unspecified protein-calorie malnutrition Status: Acute Assessment and Plan: Patient was evaluated by dietitian for nutritional assessment and tube feeds initiated WE wll need to revisit need for tube feeds on DC (4) Electrolyte abnormality: Code(s): E87.8 - Other disorders of electrolyte and fluid balance, not elsewhere classified Status: Acute (5) Dysphagia: Code(s): R13.10 - Dysphagia, unspecified Status: Acute Assessment and Plan: Patient has history of dysphagia and has PEG tube although she continues to eat intermittently. Patient was evaluated by speech and modified diet is now ordered She is on tube feeds. Once her p.o. intake improves her tube feeds can be weaned down. Increased tube feed rate to 30 mL/hour (6) Seizure: Code(s): R56.9 - Unspecified convulsions Status: Acute Assessment and Plan: Seizure likely secondary to hyponatremia No recurrence in ICU Continue seizure precautions Patient now alert oriented Management hyponatremia as per data systems analyst (7) Hyponatremia: Code(s): E87.1 - Hypo-osmolality and hyponatremia Status: Acute Assessment and Plan: Improving. patient was seen by Nephrology and Dr. High is managing her sodium. I will defer further workup and management to Nephrology (8) Alcohol abuse: Code(s): F10.10 - Alcohol abuse, uncomplicated Status: Acute Assessment and Plan: Continue thiamine and folic acid Monitor for signs of withdrawal Subjective Date/time seen: 11/17/22 16:35 Interval history: 52 year old female with history of rheumatoid arthritis, chronic pain syndrome, neck surgery in August, heavy alcohol use, history of hyponatremia presented today to ER with chief complaint of seizure.? Patient is a poor historian and most of the history was obtained from patient's was at bedside.? He told me the patient had a good day yesterday apart from the neck pain that she has been having since her surgery and last night he woke up hearing gurgling sound and found her to be having seizure.? He states the patient has had a seizure in the past 2 years ago and was found to be secondary to hyponatremia.? Pt states she is on tube feeds since her neck surgery pt sees PCP, neurology and ENT in the opd Pt states she has been on tube feeds for 6 months but is able to take some foods orally PT states she has not been eating much and felt so nauseated that she stopped taking her tube feeds PT sodium has been very low Pt will need swallow assessment and derrick builder consult prior to DC Long discussion about stopping drinking alcholol Review of Systems Review of Systems: Dysphagia Objective Data Vital Signs Vital Signs: Vital Signs - 24 hr 11/16/22 18:00 11/16/22 20:10 11/16/22 20:27 Temperature 36.3 C L Pulse Rate 74 75 Respiratory Rate 16 Blood Pressure 124/86 Pulse Oximetry 98 Oxygen Delivery Room Air 11/16/22 20:00 11/16/22 22:00 11/16/22 23:46 Temperature 36.1 C L Pulse Rate 69 74 71 Respiratory Rate 16 Blood Pressure 102/69 Pulse Oximetry 97 Oxygen Delivery 11/17/22 00:00 11/17/22 00:00 11/17/22 02:00 Temperature Pulse Rate 67 73 Respiratory Rate Blood Pressure Pulse Oximetry Oxygen Delivery Room Air 11/17/22 04:15 11/17/22 04:00 11/17/22 04:00 Temperature 36.6 C Pulse Rate 72 69 Respiratory Rate 18 Blood Pressure 141
[2022-11-17] MEDS: LIDOCAINE HCL 2% VISC SOLN 15 ML UDC PO (21:03)
[2022-11-18] VITALS (17 sets, daily range): BP systolic 110–145; BP diastolic 74–96; PULSE 59–97; RESP 16–18; TEMP 35.7–37.2; O2SAT 96–100
[2022-11-18] MEDS: oxyCODONE/ACETAMINOPHEN (*CRX) 5-325 MG TABLET 1 TABLET PO ×4 (04:25→20:23)
[2022-11-18] MEDS: TIZANIDINE HCL 2 MG TABLET PO ×3 (05:06→22:27)
--- NOTE | 2022-11-18 05:19 | PC.NURSE ---
rogers catheter removed per protocol @ 0515. see flowsheet.
[2022-11-18 05:34] LABS: Basophils Absolute Auto 0.1 K/mm3 (0.0-0.1); Basophils Percent Auto 1.2 % (0.2-1.2); Eosinophils Absolute Auto 0.4 K/mm3 (0-0.3); Eosinophils Percent Auto 5.1 % (0-4.4); Hematocrit 34.4 % (37.0-47.0); Hemoglobin 11.8 g/dL (12.0-15.0); Immature Granulocyte Absolute 0.08 K/mm3 (0.00-0.031); Lymphocytes Absolute Auto 1.22 K/mm3 (0.9-3.2); Mean Corpuscular HGB Conc 34.3 g/dl (32-36); Mean Corpuscular Hemoglobin 33.1 pg (26-34); Mean Corpuscular Volume 96.4 fl (80-100); Mean Platelet Volume 8.8 fl (7.4-10.4); Monocytes Absolute Auto 0.9 K/mm3 (0.1-0.6); Monocytes Percent Auto 12.3 % (2.6-8.5); Neutrophils Absolute Auto 4.9 K/mm3 (1.3-6.7); Neutrophils Percent Auto 64.4 % (45.5-73.1); Platelet Count Result 352 k/mm3 (150-375); Red Blood Count 3.57 M/mm3 (4.2-5.4); White Blood Count 7.6 K/mm3 (4.5-10.0)
[2022-11-18 05:44] LABS: Alanine Aminotransferase 19 U/L (6-35); Albumin Level 3.5 g/dL (3.5-5.1); Alkaline Phosphatase 131 U/L (38-126); Anion Gap 7 mmol/L (8-16); Aspartate Amino Transferase 32 U/L (14-36); Bilirubin,Total 0.4 mg/dL (0.2-1.3); Blood Urea Nitrogen 9 mg/dL (7-17); Carbon Dioxide 28 mmol/L (22-30); Chloride 96 mmol/L (98-107); Estimated CRCL calculation 83 ml/min; Estimated Glomerular Filt Rate > 60; Glucose 111 mg/dL (65-110); Magnesium 1.2 mg/dL (1.6-2.3); Phosphorus 5.6 mg/dL (2.5-4.5); Potassium 4.3 mmol/L (3.4-5.0); Sodium 131 mmol/L (137-145)
[2022-11-18] MEDS: buPROPion HCL XL (24 HR) 150 MG TABCR 300 MG PO (09:18)
[2022-11-18] MEDS: ENOXAPARIN 40 MG/0.4 ML SYRINGE SUB-Q (09:19)
[2022-11-18] MEDS: FOLIC ACID 1 MG TABLET FEED TUBE (09:19)
[2022-11-18] MEDS: THIAMINE HCL 200 MG/2 ML VIAL 100 MG IV PUSH (09:19)
[2022-11-18] MEDS: HYDROXYCHLOROQUINE SULFATE 200 MG TABLET PO ×2 (09:19→18:11)
[2022-11-18] MEDS: AZELASTINE HCL NASAL 0.1% 137 MCG/SPR 30 ML BTL 1 SPRAY NASAL (09:23)
[2022-11-18] MEDS: BACLOFEN 5 MG TABLET PO ×2 (09:34→15:59)
[2022-11-18 10:20] LABS: Osmolality, Urine 104 mOsm/kg (50-1200)
--- NOTE | 2022-11-18 10:20 | PM.PNNEP ---
Progress Note: A&P Assessment and Plan (1) Hyponatremia: Code(s): E87.1 - Hypo-osmolality and hyponatremia Status: Acute Assessment and Plan: continues to improve acute versus acute on chronic evaluation to date: no sign of cancer - she should be sure she is up-to-date with her cancer surveillance. CT brain was negative. chest x-ray was negative TSH low but FT3 and FT4 okay; total T3 pending Cortisol okay urine electrolytes prerenal serum osmo low and urine osmo pending Await SPEP and UPEP suspect admission exacerbation secondary to poor oral intake and significant alcohol intake however, chronic pain as well as pain medications could be playing a role as well just started on official fluid restriction follow trend of repeat sodium levels (2) Seizure: Code(s): R56.9 - Unspecified convulsions Status: Acute Assessment and Plan: secondary to hyponatremia (much like her episode 2 years ago) mentation at baseline currently seizure precautions (3) Alcohol abuse: Code(s): F10.10 - Alcohol abuse, uncomplicated Status: Acute Assessment and Plan: on thiamine and folic acid No signs of withdrawal so far (4) Electrolyte abnormality: Code(s): E87.8 - Other disorders of electrolyte and fluid balance, not elsewhere classified Status: Acute Assessment and Plan: noted issues with hypocalcmia, hypomagnesemia, and hypokalemia follow trend and supplement as needed (5) Malnutrition: Code(s): E46 - Unspecified protein-calorie malnutrition Status: Acute Assessment and Plan: presumably reason she has PEG tube dietary and speech therapy recommendations noted oral intake along with tube feedings currently Will continue to follow Subjective Date/time seen: 11/18/22 10:20 Interval history: Follow-up for acute hyponatremia (possibly on chronic hyponatremia. Sodium seems to be doing better with current interventions/therapy; no apparent distress noted at this time; no issues overnight or earlier this morning. Exam Narrative: General: WD/WN female in NAD Heart: normal S1 and S2; no rub Lungs: clear bilaterally Abdomen: soft, nontender, nondistended, positive bowel sounds Extremities: no cyanosis or clubbing; no edema Skin: no nodules Objective Data Vital Signs Vital Signs: Vital Signs Temp Pulse Resp BP Pulse Ox O2 Del Method 11/18/22 08:36 97 Room Air 11/18/22 07:55 96.5 F L 65 16 110/74 98 11/18/22 06:00 66 11/18/22 05:19 97.7 F 67 18 145/89 H 98 11/18/22 04:00 64 11/18/22 04:00 68 16 96 Room Air 11/18/22 02:00 60 11/18/22 00:00 59 L 11/18/22 00:00 66 16 96 Room Air 11/17/22 23:14 97.3 F L 66 16 106/71 96 11/17/22 22:00 70 11/17/22 20:00 82 11/17/22 20:00 72 16 98 Room Air 11/17/22 20:00 97.5 F L 72 16 126/88 98 11/17/22 18:00 87 11/17/22 16:00 Room Air 11/17/22 16:00 71 11/17/22 16:27 97.1 F L 67 16 107/75 96 11/17/22 14:00 70 Intake/Output Intake/Output: Intake & Output 11/15/22 11/16/22 11/17/22 11/18/22 23:59 23:59 23:59 23:59 Intake Total 2897 1605 2365 825 Output Total 2300 3225 3650 1550 Balance 597 -1620 -1285 -725 Meds/Results Medications: Active Medications Generic Name Dose Route Start Last Admin Trade Name Freq PRN Reason Stop Dose Admin Acetaminophen 650 mg 11/14/22 08:59 11/14/22 20:23 Acetaminophen 325 Mg Tablet FEED TUBE 650 mg Q4H PRN Administration Headache, Mild Pain or fever Albuterol 2 puff 11/17/22 16:41 Albuterol Sulfate (*Sp) Aerosol 1 Puff INHALATION Q4-6H PRN Shortness Of Breath Azelastine HCl 1 spray 11/18/22 09:00 11/18/22 09:23 Azelastine Hcl Nasal 0.1% 137 Mcg/Spr 30 Ml Btl NASAL 1 spray DAILY MARTA Administration Baclofen 5 mg 11/17/22 1
--- NOTE | 2022-11-18 10:20 | P.PNNP_ITS ---
Progress Note: A&P Assessment and Plan (1) Hyponatremia: Code(s): E87.1 - Hypo-osmolality and hyponatremia Status: Acute Assessment and Plan: * continues to improve * acute versus acute on chronic * evaluation to date: * no sign of cancer - she should be sure she is up-to-date with her cancer surveillance. * CT brain was negative. * chest x-ray was negative * TSH low but FT3 and FT4 okay; total T3 pending * Cortisol okay * urine electrolytes prerenal * serum osmo low and urine osmo pending * Await SPEP and UPEP * suspect admission exacerbation secondary to poor oral intake and significant alcohol intake * however, chronic pain as well as pain medications could be playing a role as well * just started on official fluid restriction * follow trend of repeat sodium levels (2) Seizure: Code(s): R56.9 - Unspecified convulsions Status: Acute Assessment and Plan: * secondary to hyponatremia (much like her episode 2 years ago) * mentation at baseline currently * seizure precautions (3) Alcohol abuse: Code(s): F10.10 - Alcohol abuse, uncomplicated Status: Acute Assessment and Plan: * on thiamine and folic acid * No signs of withdrawal so far (4) Electrolyte abnormality: Code(s): E87.8 - Other disorders of electrolyte and fluid balance, not elsewhere classified Status: Acute Assessment and Plan: * noted issues with hypocalcmia, hypomagnesemia, and hypokalemia * follow trend and supplement as needed (5) Malnutrition: Code(s): E46 - Unspecified protein-calorie malnutrition Status: Acute Assessment and Plan: * presumably reason she has PEG tube * dietary and speech therapy recommendations noted * oral intake along with tube feedings currently Will continue to follow Subjective Date/time seen: 11/18/22 10:20 Interval history: Follow-up for acute hyponatremia (possibly on chronic hyponatremia. Sodium seems to be doing better with current interventions/therapy; no apparent distress noted at this time; no issues overnight or earlier this morning. Exam Narrative: General: WD/WN female in NAD Heart: normal S1 and S2; no rub Lungs: clear bilaterally Abdomen: soft, nontender, nondistended, positive bowel sounds Extremities: no cyanosis or clubbing; no edema Skin: no nodules Objective Data Vital Signs Vital Signs: Vital Signs Temp Pulse Resp BP Pulse Ox O2 Del Method 09/18/23 08:36 97 Room Air 11/18/22 07:55 96.5 F L 65 16 110/74 98 11/18/22 06:00 66 11/18/22 05:19 97.7 F 67 18 145/89 H 98 11/18/22 04:00 64 11/18/22 04:00 68 16 96 Room Air 11/18/22 02:00 60 11/18/22 00:00 59 L 11/18/22 00:00 66 16 96 Room Air 11/17/22 23:14 97.3 F L 66 16 106/71 96 11/17/22 22:00 70 11/17/22 20:00 82 11/17/22 20:00 72 16 98 Room Air 11/17/22 20:00 97.5 F L 72 16 126/88 98 11/17/22 18:00 87 11/17/22 16:00 Room Air 11/17/22 16:00 71 11/17/22 16:27 97.1 F L 67 16 107/75 96 11/17/22 14:00 70 Intake/Output Intake/Output: Intake & Ou
--- NOTE | 2022-11-18 10:50 | PCSTNOTE ---
Please refer to the Modified Barium Swallow Evaluation in the EMR.
[2022-11-18] MEDS: MAGNESIUM SULF 1 GM/D5W 100 ML 1 GM/100 ML BAG IVPB (12:20)
[2022-11-18] MEDS: CALCIUM/VITAMIN D 250 MG TABLET 2 TABLET FEED TUBE ×2 (12:21→18:11)
[2022-11-18] MEDS: MORPHINE SULFATE (*CRX) 2 MG/ML INJ IV PUSH ×2 (12:33→18:11)
--- NOTE | 2022-11-18 16:01 | PM.IMPN ---
Progress Note: A&P Assessment and Plan (1) Neck pain: Code(s): M54.2 - Cervicalgia Status: Acute Assessment and Plan: Patient has chronic neck pain and has had surgery in August. Analgesics ordered (2) Abdominal pain: Code(s): R10.9 - Unspecified abdominal pain Status: Acute Assessment and Plan: Normal lipase CT abdomen pelvis shows fatty liver and due to heavy alcohol abuse LFTs reviewed (3) Malnutrition: Code(s): E46 - Unspecified protein-calorie malnutrition Status: Acute Assessment and Plan: Patient was evaluated by dietitian for nutritional assessment and tube feeds initiated no need for tubefeeds on DC as per swallow evaluation here (4) Electrolyte abnormality: Code(s): E87.8 - Other disorders of electrolyte and fluid balance, not elsewhere classified Status: Acute (5) Dysphagia: Code(s): R13.10 - Dysphagia, unspecified Status: Acute Assessment and Plan: Patient has history of dysphagia and has PEG tube although she continues to eat intermittently. Patient was evaluated by speech and modified diet is now ordered She is on tube feeds. Once her p.o. intake improves her tube feeds can be weaned down. Increased tube feed rate to 30 mL/hour (6) Seizure: Code(s): R56.9 - Unspecified convulsions Status: Acute Assessment and Plan: Seizure likely secondary to hyponatremia No recurrence in ICU Continue seizure precautions Patient now alert oriented Management hyponatremia as per house steward/stewardess (7) Hyponatremia: Code(s): E87.1 - Hypo-osmolality and hyponatremia Status: Acute Assessment and Plan: Improving. patient was seen by Nephrology and Dr. High is managing her sodium. I will defer further workup and management to Nephrology (8) Alcohol abuse: Code(s): F10.10 - Alcohol abuse, uncomplicated Status: Acute Assessment and Plan: Continue thiamine and folic acid Monitor for signs of withdrawal Subjective Date/time seen: 11/18/22 16:01 Interval history: 52 year old female with history of rheumatoid arthritis, chronic pain syndrome, neck surgery in August, heavy alcohol use, history of hyponatremia presented today to ER with chief complaint of seizure.? Patient is a poor historian and most of the history was obtained from patient's was at bedside.? He told me the patient had a good day yesterday apart from the neck pain that she has been having since her surgery and last night he woke up hearing gurgling sound and found her to be having seizure.? He states the patient has had a seizure in the past 2 years ago and was found to be secondary to hyponatremia.? Pt states she is on tube feeds since her neck surgery pt sees PCP, neurology and ENT in the opd Pt states she has been on tube feeds for 6 months but is able to take some foods orally PT states she has not been eating much and felt so nauseated that she stopped taking her tube feeds PT sodium has been very low nephrology team rounding Pt had swallow test suggests oral intake is fine no need for tube feds on DC Pt looks depressed and has not been eating much and drinking too much Long discussion about stopping drinking alcholol Review of Systems Review of Systems: Low mood loss of appetite Exam Narrative: General: WD/WN female in NAD Heart: normal S1 and S2; no rub Lungs: clear to auscultation Abdomen: soft, nontender, nondistended, positive bowel sounds Extremities: no cyanosis or clubbing; no edema Skin: warm and dry Objective Data Vital Signs Vital Signs: Vital Signs - 24 hr 11/17/22 16:27 11/17/22 18:00 11/17/22 20:00 Temperature 36.2 C L 36.4 C L Pulse Rate 67 87 72 Respiratory Rate 16 16 Blood Pressure 107/75 126/88 Pulse Oximetry 96 98 Oxygen Delivery 11/17/22 20:00 11/17/22 20:00 11/17/22 22:00 Temperature Pulse Rate 72 8
--- NOTE | 2022-11-18 18:35 | PC.NURSE ---
Received via bed from U via bed. Voiding without difficulty.
--- NOTE | 2022-11-18 18:58 | PC.NURSE ---
This patient, Natalya Taylor, was transferred to [ed room 253 ] on 11/18/22 at 1830. Personal belongings sent with patient. Report given to [NEGIN Preeyra ]. Appropriate documentation sent with patient.
[2022-11-18] MEDS: MIRTAZAPINE 7.5 MG TABLET PO (22:27)
[2022-11-18] MEDS: traZODone HCL 25 MG TABLET PO (22:27)
[2022-11-19] VITALS: PULSE 72
[2022-11-19 04:00] VITALS: BP 128/82; PULSE 70; PULSE 74; RESP 18; TEMP 36.9; O2SAT 99
[2022-11-19] MEDS: TIZANIDINE HCL 2 MG TABLET PO (05:15)
[2022-11-19] MEDS: oxyCODONE/ACETAMINOPHEN (*CRX) 5-325 MG TABLET 1 TABLET PO ×2 (05:16→10:08)
[2022-11-19 05:53] LABS: Basophils Absolute Auto 0.1 K/mm3 (0.0-0.1); Basophils Percent Auto 1.3 % (0.2-1.2); Eosinophils Absolute Auto 0.4 K/mm3 (0-0.3); Hematocrit 36.3 % (37.0-47.0); Hemoglobin 12.2 g/dL (12.0-15.0); Immature Granulocyte Absolute 0.07 K/mm3 (0.00-0.031); Immature Granulocyte Percent A 1.1 % (0-0.5); Lymphocytes Absolute Auto 1.14 K/mm3 (0.9-3.2); Mean Corpuscular HGB Conc 33.6 g/dl (32-36); Mean Corpuscular Hemoglobin 33.5 pg (26-34); Mean Corpuscular Volume 99.7 fl (80-100); Mean Platelet Volume 8.5 fl (7.4-10.4); Monocytes Absolute Auto 0.9 K/mm3 (0.1-0.6); Neutrophils Absolute Auto 3.8 K/mm3 (1.3-6.7); Neutrophils Percent Auto 59.6 % (45.5-73.1); Platelet Count Result 342 k/mm3 (150-375); Red Blood Count 3.64 M/mm3 (4.2-5.4); Red Cell Distribution Width 13.1 % (11.5-14.5); White Blood Count 6.3 K/mm3 (4.5-10.0)
[2022-11-19 05:58] LABS: Alanine Aminotransferase 25 U/L (6-35); Alkaline Phosphatase 140 U/L (38-126); Anion Gap 10 mmol/L (8-16); Aspartate Amino Transferase 49 U/L (14-36); Bilirubin,Total 0.5 mg/dL (0.2-1.3); Blood Urea Nitrogen 10 mg/dL (7-17); Calcium 9.1 mg/dL (8.4-10.2); Carbon Dioxide 23 mmol/L (22-30); Chloride 100 mmol/L (98-107); Estimated CRCL calculation 81 ml/min; Estimated Glomerular Filt Rate > 60; Glucose 126 mg/dL (65-110); Magnesium 1.8 mg/dL (1.6-2.3); Phosphorus 5.6 mg/dL (2.5-4.5); Potassium 4.3 mmol/L (3.4-5.0); Sodium 133 mmol/L (137-145)
[2022-11-19] MEDS: MORPHINE SULFATE (*CRX) 2 MG/ML INJ IV PUSH (08:53)
[2022-11-19] MEDS: THIAMINE HCL 200 MG/2 ML VIAL 100 MG IV PUSH (08:54)
[2022-11-19] MEDS: ENOXAPARIN 40 MG/0.4 ML SYRINGE SUB-Q (08:54)
--- NOTE | 2022-11-19 09:24 | PM.DS ---
DS: Admitting Diagnosis Discharge Date 11/19/2022 Admitting Diagnosis WEAKNESS DS: Discharge Diagnosis Discharge Diagnosis (1) Neck pain: Code(s): M54.2 - Cervicalgia Status: Acute Assessment and Plan: Patient has chronic neck pain and has had surgery in August. Analgesics ordered pt sees neurology and eNT OPD (2) Abdominal pain: Code(s): R10.9 - Unspecified abdominal pain Status: Acute Assessment and Plan: Normal lipase CT abdomen pelvis shows fatty liver and due to heavy alcohol abuse Pt advised to quit drinking alcohol (3) Malnutrition: Code(s): E46 - Unspecified protein-calorie malnutrition Status: Acute Assessment and Plan: Patient was evaluated by dietitian for nutritional assessment and tube feeds initiated Pt had swallow evaluation here No need for tubefeeds on DC as per swallow evaluation here (4) Dysphagia: Code(s): R13.10 - Dysphagia, unspecified Status: Acute Assessment and Plan: Patient has history of dysphagia and has PEG tube although she continues to eat intermittently. Patient was evaluated by speech and modified diet is now ordered pt passed swallow test pt can have regular foods through her mouth. Remeron started and trazodone started prior to DC (5) Seizure: Code(s): R56.9 - Unspecified convulsions Status: Acute Assessment and Plan: Seizure likely secondary to hyponatremia likley secondary to low sodium levels Management hyponatremia as per sticker machine operator (6) Hyponatremia: Code(s): E87.1 - Hypo-osmolality and hyponatremia Status: Acute Assessment and Plan: Improving sodium is 133 today patient was seen by Nephrology and Dr. High is managing her sodium. I will defer further workup and management to Nephrology (7) Alcohol abuse: Code(s): F10.10 - Alcohol abuse, uncomplicated Status: Acute Assessment and Plan: Continue thiamine and folic acid No signs of withdrawal (8) Electrolyte abnormality: Code(s): E87.8 - Other disorders of electrolyte and fluid balance, not elsewhere classified Status: Acute DS: Summary Hospital Course Hospital Course: 52 year old female with history of rheumatoid arthritis, chronic pain syndrome, neck surgery in August, heavy alcohol use, history of hyponatremia presented today to ER with chief complaint of seizure.? Patient is a poor historian and most of the history was obtained from patient's was at bedside.? He told me the patient had a good day yesterday apart from the neck pain that she has been having since her surgery and last night he woke up hearing gurgling sound and found her to be having seizure.? He states the patient has had a seizure in the past 2 years ago and was found to be secondary to hyponatremia.? Pt states she is on tube feeds since her neck surgery pt sees PCP, neurology and ENT in the opd Pt states she has been on tube feeds for 6 months but is able to take some foods orally PT states she has not been eating much and felt so nauseated that she stopped taking her tube feeds PT sodium has been very low nephrology team rounding Pt had swallow test suggests oral intake is fine no need for tube feds on DC Pt looks depressed and has not been eating much and drinking too much Long discussion about stopping drinking alcholol Time Spent with Patient Time attestation: Total time spent providing and/or coordinating discharge services:40 minutes on day of DC Exam Narrative: General: WD/WN female in NAD Heart: normal S1 and S2 Lungs: clear to auscultation Abdomen: soft, nontender, nondistended, positive bowel sounds Extremities: no cyanosis or clubbing; no edema Skin: warm and dry DS: Data Data Completed and Pending Labs on day of discharge: Labs from last 24 hours 11/19/22 11/14/22 11/14/22 05:31 08:47 06:38 WBC 6.3 RBC 3.64 L Hgb 12.2 Hct
--- NOTE | 2022-11-19 09:55 | PC.NURSE ---
On 11/19/22, the student, [Marni Yanes], provided care and completed [facility] documentation on this patient. I have reviewed the student's documentation and agree with the findings.
[2022-11-19] MEDS: FOLIC ACID 1 MG TABLET FEED TUBE (10:09)
[2022-11-19] MEDS: PANTOPRAZOLE SOD SESQUIHYDRATE 20 MG TAB PO (10:09)
[2022-11-19] MEDS: AZELASTINE HCL NASAL 0.1% 137 MCG/SPR 30 ML BTL 1 SPRAY NASAL (10:12)
--- NOTE | 2022-11-19 11:09 | PCNFU ---
Nutrition Follow-Up Complete: Inadequate energy intake related to pt not administering tube feeds and dietary lifestyle prior to admission as evidenced by family report, heavy alcohol use, minimal po intake. Goal: Meet estimated needs Patient is progressing towards goal. We will continue current goal. Pt current nutrition is Osmolite 1.5 at 30 ml/hr with Regular diet/1200 ml FR. Nutrition recommendation: discontinue FR Last recorded weight is 55.4 kg Bowel Motility:No BM reported at this time. Labs Reviewed:Glu 126, Na 133 Meds Noted:Remeron, Folic Acid, Thiamine Skin: WNL Additional Notes: Patient had MBS recommending Regular diet,level 4. Tube feeding running at 30 ml/hr of Osmolite 1.5 providing 990 kcals/41 gms protein/503 ml water(meeting 57% kcal needs/62% protein needs). Patient is tolerating Regular diet. She states to not eating breakfast at home. Discussed supplementing with tube feeding at that time. She states to having tube feeding supplies at home. Plans for discharge today. Monitoring: Reassess every Friday and Friday.
[2022-11-21 14:42] LABS: Ionized Calcium 4.9 mg/dL (4.7-5.5)
[2022-12-03 14:18] LABS: T3 Free 3.3 pg/mL
== END 2022-11-19 11:00 | disposition home or self-care (01) | DRG 641 ==
LOC: ANHED 03:14 → ANHICU 05:48 → ANHIMU 11-16 15:24 → ANH2MED 11-18 18:27
PROVIDERS: Internal Medicine; Internal Medicine Nephrology; Admitting Provider Internal Medicine; Emergency Provider Emergency Medicine; PCP Internal Medicine; Visit Provider Family Medicine
DX: E87.1 Hypo-osmolality and hyponatremia (principal); G40.89 Other seizures; E46 Unspecified protein-calorie malnutrition; M54.2 Cervicalgia; Z68.20 Body mass index [BMI] 20.0-20.9, adult; R13.10 Dysphagia, unspecified; F10.10 Alcohol abuse, uncomplicated; E83.51 Hypocalcemia; E83.42 Hypomagnesemia; E87.6 Hypokalemia; G89.4 Chronic pain syndrome; M06.9 Rheumatoid arthritis, unspecified; Z98.1 Arthrodesis status; Z90.49 Acquired absence of other specified parts of digestive tract; Z87.891 Personal history of nicotine dependence; Z93.1 Gastrostomy status
CPT/HCPCS: 36415; 70450; 71045; 74176; 80048; 80053; 80307; 81001; 82330; 82533; 82570; 83605; 83690; 83735; 83930; 83935; 84100; 84295; 84300; 84439; 84443; 84480; 84484; 85025; 85610; 85730; 92526; 92610; 92611; 93005; 99285; A9270; J0613; J1650; J2270; J2597; J3411; J3475; J3480; J7030; J7060; J7131

== ENCOUNTER 2024-12-08 12:31 | Outpatient (CLI) | payer BC, SELFPAY ==
--- NOTE | 2024-12-08 12:42 | ECG_ITS ---
Test Date: 2024-12-08 12:47:25 Measurements Intervals [place] Rate: 78 P: 49 MN: 146 QRS: -17 QRSD: 91 T: 46 QT: 380 QTc: 435 Interpretive Statements SINUS RHYTHM INCOMPLETE RIGHT BUNDLE BRANCH BLOCK BORDERLINE ECG No previous ECG available for comparison Electronically Signed On 12-08-2024 12:59:23 CDT by Alex Marie D.O.
== END 2024-12-08 12:32 | disposition home or self-care (01) ==
LOC: ANHSURGERY 12:39
PROVIDERS: PCP Internal Medicine; Visit Provider Podiatrist Foot & Ankle Surgery
DX: Z01.810 Encounter for preprocedural cardiovascular examination (principal); I10 Essential (primary) hypertension; R94.31 Abnormal electrocardiogram [ECG] [EKG]
CPT/HCPCS: 93005

== ENCOUNTER 2024-12-10 02:37 | Day surgery (SDC) | payer BC, SELFPAY ==
[2024-12-06 15:20] VITALS: BMI 22.3
--- NOTE | 2024-12-06 15:34 | PC.NURSE ---
[facility] has started construction of its new state of the art ER which will open Spring 2026. With this, we anticipate parking may be a challenge for some our surgical patients and families. Parking spaces are limited but are available for all Surgical, obstetrics, and ER patients sharing this lot. If you arrive and find you are having a hard time finding a parking space, please note that we understand the challenges, please drive around the hospital and park near Hospital Entrance 1. When you enter this entrance, you can ask a volunteer to direct or take you back to the surgical waiting area to check in. We appreciate everyone?s understanding of these expected challenges while we build for your future. Report to the Outpatient Waiting Room, entrance under the green pavilion located off [address], at time _0600_ on date _[id number]_. Planned Procedure Time: _0730_.? Time changes happen often and if your time is changed the preop area will call you the afternoon before. - You and your visitor will be asked to self-screen and do not enter if you have any COVID symptoms. Please call surgeon if you need to reschedule. - A mask is optional within the hospital at this time. Patients may have clear liquids (water, carbonated beverages, clear teas, apple juice) until 3 hours prior to surgery with a maximum of 20 ounces. - No food from midnight until time of surgery and no smoking, or chewing tobacco (or any form of nicotine). No chewing gum, candy or mints. Take only the following medications with a SIP of water on the morning of surgery: __Bupropion, Norvasc, Buspirone and Azelastine. Use Albuterol if needed.___ DO NOT STOP ANY OF YOUR OTHER PRESCRIPTION MEDICATIONS PRIOR TO SURGERY EXCEPT THE FOLLOWING Hold all vitamins and supplements for 3 days per anesthesiologist. Medications to discontinue per physician Date to take last dose Please no make-up, nail romansh, hairspray, perfume, deodorant, or body powder the day of surgery.? No jewelry (including any body piercings) or valuables the day of surgery, leave them at home.? Please take a shower or bath the night before, or the morning of, surgery with an antibacterial soap.? Wear comfortable, loose fitting clothing.? - Jewelry must be removed prior to entering the operating room.? Rings and piercings that are not removed may be cut off. - The hospital will not accept responsibility for valuables.? - Please leave all valuables, including medications, at home the day of surgery. If you are going home after surgery, a licensed tow driver must drive you home.? - NO public transportation without another adult if you receive anesthesia. - We recommend that an adult stay with you for 24 hours following discharge. - We also recommend that you do not drive, make important decision, drink alcoholic beverages, or take any drugs that were not prescribed by your health care provider for at least 24 hours after your discharge time. Follow any additional instructions given to you from your surgeon. Telephone instructions given to ___Natalya__and asked if any additional questions and then verbalized understanding. Patient advised to call surgeon office or pre surgery nurse liaison [phone] if any additional questions.
[2024-12-10] VITALS (8 sets, daily range): BP systolic 116–143; BP diastolic 56–97; PULSE 83–97; RESP 12–78; TEMP 36.3–36.6; O2SAT 95–100
--- NOTE | ~2024-12-10 | XR_ITS ---
EXAMINATION: XR surgery orthopedic DATE: 12/10/2024 08:53 INDICATION: Right foot arthrodesis TECHNIQUE: 2 fluoroscopic images of the right forefoot were obtained during procedure performed by Dr. Armenta. Radiologist was not present for the imaging or procedure. The amount of fluoroscopy time used during this procedure was 0.9 minutes. Total DAP was 5.148 cGycm^2. COMPARISON: None. FINDINGS: Second proximal interphalangeal joint arthrodesis with osteotomy at the head of the second proximal phalanx and placement of an implant spanning the joint space which is been placed over maxillary directed percutaneous pin with distal tip in the head of the second metatarsal which extends distally to at least the distal interphalangeal joint and beyond the margin of the field of imaging. The percutaneous pin has been removed on the subsequent lateral image. There has been prior bunionectomy with osteotomy at the medial head of the first metatarsal and first metatarsophalangeal arthrodesis with cannulated compression screw and dorsal plate and screws. IMPRESSION: 1. Fluoroscopy utilized during second proximal interphalangeal joint instrumented arthrodesis. See procedure note for further detail Reviewed, dictated and finalized at location A. IMPRESSION: 1. Fluoroscopy utilized during second proximal interphalangeal joint instrument ed arthrodesis. See procedure note for further detail
--- OUTSIDE RECORDS SUMMARY | 2024-12-10 02:39 | XMS_ITS | Clinical Summary ---
Author Organization [facility] Address [address] [place] [address] Care Team Providers Care Public Policy Associate Name Role Phone Merrill Esteban MD Primary Care Provider [phone] Source Comments [facility],non-owned Affiliates and Associated Physician Practices is amultiple site organization consisting of ambulatory clinics and hospital sitesin [place], [place], [place] and [place]. This disclosure is being madepursuant to the Care Everywhere program and may not contain all information available regarding this patient. Last updated 17.[facility] [employer] Social History Tobacco Use Types Packs/Day Years Used Date Smoking Tobacco: Never Assessed Comments Unknown Sex and Gender Information Value Date Recorded Sex Assigned at Not on file Legal Sex Female 2:56 PM CDT Gender Identity Not on file Sexual Orientation Not on file Plan of Treatment Health Maintenance Due Date Last Done Comments COLOGUARD (AGES 45-75) - COL ON CA SCREENING 1969 COLON MONITORING 1969 COLONOSCOPY - COLON CA SCREENING 1969 CT COLONOGRAPHY - COLON CA SCREENING 1969 Colorectal Cancer Screening 1969 FIT - COLON CA SCREENING 1969 FLEX SIG - COLON CA SCREENING 1969 LIPID TESTING 1969 MAMMOGRAM 1969 HIV SCREENING 1984 HEPATITIS C SCREENING 07/24/1987 DTAP/TDAP/TD VACCINES (1 - Tdap) 1988 HEPATITIS B VACCINE (1 of 3 - 19+ 3-dose series) 1988 PNEUMOCOCCAL VACCINE 50+ (1 of 1 - PCV) 07/29/2019 ZOSTER VACCINE (1 of 2) 07/29/2019 DEPRESSION SCREENING 03/03/2024 COVID-19 VACCINE (1 - 2023-2 5 season) 2024 INFLUENZA VACCINE (#1) 2024 HIB VACCINE Aged Out No longer eligi ble based on patient's age to complete this topic HPV VACCINE Aged Out No longer eligi ble based on patient's age to complete this topic MENINGOCOCCAL (Group B) VACC INE SHARED DECISION-MAKING Aged Out No longer eligibl e based on patient's age to complete this topic MENINGOCOCCAL GROUPS A/C/Y/W VACCINE Aged Out No longer eligible b ased on patient's age to complete this topic [place] [address] [place] [address] Care Teams Public Policy Associate Relationship Specialty Start Date End Date Merrill Esteban MD [address] [place] [address] PCP - General 07/19/21
--- NOTE | 2024-12-10 07:08 | WPDANESEPPF ---
Anes - Initial Pre Proc Eval Procedure: Operation Date: 12/10/24 07:30 Proposed Procedures p Arthrodesis First Metatarsophalangeal Joint Right Foot - Cesar Armenta Jr., DPM s Hammer Toe Repair Second Digit Right Foot - Cesar Armenta Jr., DPM Date/Time: 12/10/24 07:08 Surgeon: Cesar Armenta Jr., DPM Pre Op Diagnosis: Bunion rt foot,hammertoe 2nd digit rt foot Patient Data Age: 54 Gender: F Height: 1.63 m Weight: 59 kg Allergies Allergy/AdvReac Type Severity Reaction Status Date / Time No Known Allergies Allergy Verified 12/06/24 15:15 Home Medications ?Medication ?Instructions ?Recorded ?Confirmed ?Type albuterol sulfate 90 mcg/actuation 2 puff inhalation Q4-6H PRN 06/15/20 12/06/24 History aerosol inhaler (Ventolin HFA) Shortness Of Breath azelastine 137 mcg (0.1 %) nasal 1 spray intranasal DAILY 06/15/20 12/06/24 History spray bupropion HCl 300 mg 24 hr tablet, 300 mg PO DAILY 06/15/20 12/10/24 History extended release hydroxychloroquine 200 mg tablet 200 mg PO BID 06/15/20 12/10/24 History ondansetron HCl 4 mg tablet 4 mg PO BID PRN Nausea 06/15/20 12/06/24 History tizanidine 2 mg tablet 2 mg feeding tube Q8H 11/14/22 12/10/24 History pantoprazole 20 mg tablet,delayed 20 mg PO QAM #30 tabs 11/19/22 12/10/24 Rx release (Protonix) trazodone 50 mg tablet 50 mg PO HS PRN insomnia #30 tabs 11/19/22 12/10/24 Rx oxycodone-acetaminophen 5 mg-325 1 tablet PO Q6H PRN pain #40 tabs 11/30/24 Rx mg tablet (Percocet) rivaroxaban 10 mg tablet (Xarelto) 10 mg PO DAILY #14 tabs 11/30/24 Rx amlodipine 5 mg tablet 5 mg PO DAILY 12/06/24 12/10/24 History buspirone 15 mg tablet 15 mg PO TID 12/06/24 12/10/24 History cetirizine 10 mg tablet (24Hour 10 mg PO DAILY 12/06/24 12/10/24 History Allergy) lamotrigine 25 mg tablet 25 mg PO HS 12/06/24 12/10/24 History Patient hx anesthesia problems: none Family hx anesthesia problems: none Results Review: All pre-operative results and documents have been reviewed as part of the pre-operative evaluation. FOR[facility]LY [facility] Past Medical History Medical History SHON (obstructive sleep apnea) Hyperlipidemia Alcohol abuse Chronic pain syndrome Chronic neck and back pain. Hypertension Pancreatitis (~03/2018) Rheumatoid arthritis Anxiety Depression Surgical History Surgical History History of sinus surgery History of dilation and curettage History of arthroscopy of right knee History of cholecystectomy History of appendectomy Complicated by abscess requiring drainage. History of fusion of lumbar spine History of fusion of cervical spine Family History Family History Other Breast cancer Diabetes mellitus Heart disease Hypertension Social History Social History Social History: Surrogate decision maker: Lito Taylor, . Code status: Full code. Smoking packs per day: 1 Smoking cigarettes per day: 20.0 Years smoked: 15 Smoking pack-years: 15.00 Smoking status: Former smoker Tobacco type: cigarettes Smoking end date: 12/06/09 Alcohol intake: current Drinks per week: 6 Alcohol use details: Patient drinks a half a bottle of wine, 5 days a week. Substance use: never Substance use type: does not use Other substance usage details: Medical marijuana. Lack of Transportation: No Lack of Food: Never True Current Housing: Decline to Answer Concerned About Future Housing: No Difficulty Paying Gas/Electric Bills: No Difficulty Paying for Meds: No Currently Unemployed: No Education: Bachelor's Degree Difficulty w/ Childcare or Family Care: No Living arrangements: with family Additional living arrangements comments: Patient lives with her and children in [place]. Additional occupation/education comments: Homemaker. Gender identity (if verbalized by the patient): Female Spiritual care concerns: No Anes - Eval Final PreProcedure Day of Procedure 12/10/24 07:08 Patient weight: normal Heart: regular rate and rhythm Lungs: clear to auscultation Airway: Mallampati scale class II Neurological: alert and oriented Last oral intake: >/= 8 hours ASA classification: III Emergent: no Anesthetic plan: proceed Anesthesia type and monitoring: general LMA and standard monitoring Results Review: All pre-operative results and documents have been reviewed as part of the pre-operative evaluation. Informed Consent: The patient's anesthetic plan and its attendant risks and benefits were discussed with the patient/family/POA. Questions were solicited and answers provided to the satisfaction of the patient/family/POA.
[2024-12-10] MEDS: LACTATED RINGERS 1,000 ML 30 ML IV CONT ×2 (07:10→08:56)
--- NOTE | 2024-12-10 07:18 | WPDHPUPDATE1 ---
History and Physical Update Update Date/Time: 12/10/24 07:18 History and Physical has been reviewed, including an updated exam of the patient. There are NO changes in the patient's condition. Risks, benefits, and alternatives have been discussed and questions answered. Patient agrees to proceed with procedure.
[2024-12-10] MEDS: ceFAZolin 2 GM in SODIUM CHLORIDE 0.9% IV 50 ML 100 ML IVPB (07:24)
[2024-12-10] MEDS: LIDOCAINE 2% PF LOCAL INJ 5 ML VIAL 20 ML INFILTRATE (07:48)
[2024-12-10] MEDS: BUPivacaine HCL 0.5% 10 ML AMP 20 ML INFILTRATE (07:49)
--- NOTE | 2024-12-10 09:05 | W.PM.PROC2 ---
Procedure Note - Detailed Date of Procedure 12/10/24 Pre-op Diagnosis 1.Arthritic Bunion right foot 2. Hammertoe deformity 2nd digit right foot Post-op Diagnosis Same Procedure Performed 1. Arthrodesis of the 1st metatarsal phalangeal joint right foot 2. Hammertoe repair 2nd digit right foot Surgeon Cesar Armenta Jr., DPM Anesthesia General and Local Indications Painful right forefoot Findings Degeneration of the 1st metatarsal phalangeal joint right foot Description of Procedure PROCEDURE IN DETAIL: Under mild sedation, the patient was brought into the operating room, placed on the operating table in supine position. A pneumatic ankle tourniquet was placed about the patient's ipsilateral ankle. Following general anesthesia and a Avina Block with 20ccs of 2% Lidocaine plain and 0.5% Marcaine plain, the foot was then scrubbed, prepped, and draped in the usual aseptic manner. An Esmarch bandage was then used to exsanguinate the patient's foot and the pneumatic ankle tourniquet was then inflated. Surgery began in the following manner: Attention was directed to the dorsal medial aspect of the 1st metatarsophalangeal joint right foot where there was a moderate subcutaneous prominence was noted. The incision was made starting along the central shaft of the 1st metatarsal and extending just proximal to the interphalangeal joint of the hallux. The incision was continued deep down through the subcutaneous tissues using sharp and blunt dissection. All bleeders were cauterized as necessary. At this point, the dissection was continued down to the level of the periosteum and capsular structures overlying the 1st metatarsophalangeal joint. A full length periosteum and capsular incision was made just medial to the extensor hallucis longus tendon. The periosteum and capsular structures were freed from the base of the proximal phalanx as well as the distal 1st metatarsal. At this point, the 1st metatarsophalangeal joint was identified. There was loss of articular cartilage to the head of the 1st metatarsal as well as the base of the proximal phalanx worse centrally and medially. There was significant broadening and hypertrophy of the 1st metatarsophalangeal joint. Utilizing a sagittal bone saw, the hypertrophied 1st metatarsal was resected dorsally, medially, and laterally. A power bur was used to make sure that there were no rough edges and also to further debride the hypertrophic 1st metatarsal. Next, a rongeur was used to resect the hypertrophic base of the proximal phalanx. At this point, the reamer system for the Maxforce plate system was used to denude the degenerative cartilage from the head of the 1st metatarsal as well as the base of the proximal phalanx. The cartilage and subchondral bone were fully debrided utilizing the reamer system until healthy bleeding bone was noted. Next, a 2-0 drill bit was used to further fenestrate the head of the 1st metatarsal as well as the base of the proximal phalanx in order to allow fusion across the 1st metatarsophalangeal joint. Next, a guide wire for a 3.0 headless Arthrex compression screw was driven from the medial aspect of the base of the proximal phalanx into the head of the 1st metatarsal in order to serve as temporary fixation, next the cannulated screw was driven and provided excellent compression. Next A large steel plate was used to make sure that the hallux was in a rectus position both in the sagittal plane as well as the frontal plane. Excellent position of the hallux was noted. Next, a Maxforce plate was placed atop the 1st metatarsophalangeal joint held in position with [place] wires. Utilizing standard principles and techniques, the distal drill holes were drilled and three 3.0 mm fully-threaded locking screws were driven from dorsal to plantar holding the distal aspect of the plate intact. At this point, the Maxforce compression system was utilized from dorsal distal to proximal plantar across the 1st metatarsophalangeal joint with excellent compression noted. Next, a 3.0mm locking screw was used to further compress the joint along the oblong dynamic compression screw slot. Next, the remaining 2 proximal drill holes were drilled from dorsal to plantar across and two 3.0 mm locking screws were driven from dorsal to plantar. The wound site was then flushed with copious amounts of sterile saline. Fluoroscopy was used to make sure that the plate was appropriately aligned and oriented and also to make sure that the screws were of appropriate length and orientation. Excellent position of the 1st metatarsophalangeal joint was visualized in all planes. Next, the periosteum and capsular structures were reapproximated with 3-0 Vicryl. Next, the subcutaneous structures were reapproximated with 4-0 Vicryl. Next, the skin was reapproximated and coapted utilizing 4-0 Monocryl in running subcuticular suture fashion technique. Attention was directed to the second digit of the right foot where a 3cm incision was made from the distal interphalangeal joint extending to the 2nd digit base of the proximal phalanx. A transverse tenotomy was created dorsal to the proximal interphalangeal joint, next the head of the proximal phalanx was resected with an oscillating saw blade, the Arthrex hammertoe planer was used to denude and prepare the joint for the hammertoe implant from the base of the middle phalanx and distal proximal phalanx. Next, I properly screwed the Arthrex Medium Dynanite Hammertoe implant in a cannulated fashion and drove it into the canal of the proximal phalanx. Excellent correction of the hammertoe deformity was noted in the sagittal plane. I removed the guide wire with excellent maintenance of correction noted to the hammertoe implant.I reapproximated the extensor tendon and subcutaneous structure with 4-0 Vicryl and the skin with 4-0 Monocryl in running subcuticular suture fashion technique. Upon completion of the procedure, the incisions were dressed with Steri-Strips, Adaptic, 4x4s, Kerlix, and Coban. The pneumatic ankle tourniquet was then deflated and a prompt hyperemic response was noted to all digits of the foot. A posterior splint was then applied to the affected lower extremity. It is important to note that Dr. Armenta was present throughout the procedure. The patient did very well with the procedure and the anesthesia. The patient was transferred to the recovery room with vital signs stable and vascular status intact to all toes of the foot. Following a period of postoperative monitoring, the patient will be discharged home on the following written and oral postoperative instructions: 1. Keep the dressing clean, dry, and intact. 2. The patient to be strictly nonweightbearing with a knee scooter or crutches. 3. The patient should ice and elevate the foot when at rest. 4. The patient should contact Dr. Armenta for all postop care and if any problems should arise. 5. Prescriptions were written for Percocet 5/325, dispensed 40 to be taken 1 p.o. q.4-6 hours as needed for severe pain. Furthermore, the patient should also take Xarelto 10 mg to be taken 1 p.o. daily starting 24 hours after surgery to prevent DVT for 14 days followed by one 325 mg aspirin until walking is re-initiated. Implants Arthrex Maxforce 1st MPJ fusion plate with one 3.0mm Kreulock screw and 5 (3.5mm)locking screws One Arthrex 3.0mm Cannulated headless screw Estimated Blood Loss 1 Drains No Packing No Pathology None sent Complications No immediate complications Condition Stable Disposition Same day
[2024-12-10] MEDS: fentaNYL CITRATE INJ (*CRX) 100 MCG/2 ML VIAL 25 MCG IV PUSH ×2 (09:18→09:21)
[2024-12-10] MEDS: oxyCODONE HCL (*CRX) 5 MG TAB IR PO (09:51)
== END 2024-12-10 10:39 | disposition home or self-care (01) ==
PROVIDERS: PCP Internal Medicine; Visit Provider Podiatrist Foot & Ankle Surgery
PROC: (CPT 28750; principal; 2024-12-10 07:30)
PROC: (CPT 28750; 2024-12-10 07:30)
DX: M20.11 Hallux valgus (acquired), right foot (principal); M20.41 Other hammer toe(s) (acquired), right foot; M19.071 Primary osteoarthritis, right ankle and foot; E78.5 Hyperlipidemia, unspecified; G47.33 Obstructive sleep apnea (adult) (pediatric); I10 Essential (primary) hypertension; F41.9 Anxiety disorder, unspecified; F32.A Depression, unspecified; G89.4 Chronic pain syndrome; M54.2 Cervicalgia; M54.9 Dorsalgia, unspecified; M06.9 Rheumatoid arthritis, unspecified; F12.90 Cannabis use, unspecified, uncomplicated; Z79.51 Long term (current) use of inhaled steroids; Z79.891 Long term (current) use of opiate analgesic; Z79.01 Long term (current) use of anticoagulants; Z98.890 Other specified postprocedural states; Z90.49 Acquired absence of other specified parts of digestive tract; Z98.1 Arthrodesis status; Z87.891 Personal history of nicotine dependence; Z87.19 Personal history of other diseases of the digestive system; Z80.3 Family history of malignant neoplasm of breast; Z82.49 Family history of ischemic heart disease and other diseases of the circulatory system
CPT/HCPCS: 28750; 28285; 99199; J0690; A9270; C1713; C1769; J1100; J2003; J2405; J2704; J3010; J7120

== ENCOUNTER 2025-01-21 09:32 | Outpatient (CLI) | payer BC, SELFPAY ==
--- NOTE | ~2025-01-21 | CT_ITS ---
EXAMINATION:CT diagnostic chest wo con DATE: 01/21/2025 09:47 INDICATION: Ascending aorta aneurysm TECHNIQUE: Computed tomography (CT) of the chest was performed without intravenous contrast. The dose-length product (DLP) was 133.70 mGy-cm. COMPARISON: May 27, 2022 FINDINGS: Slight aneurysmal dilatation of the ascending thoracic aorta measuring 4 cm at the level right pulmonary artery unchanged. The heart size is normal. Trace pericardial effusion. No bulky lymphadenopathy or masses. Right-sided electronic device in the extrathoracic soft tissues with electrodes extending into the submental region similar in appearance. Approximately 50% anterior compression fracture of T7 new since the previous study. Fusion hardware in the lower cervical spine extending to severe T2. No acute or aggressive bony or soft tissue process seen. Moderate to severe diffuse fatty infiltrative changes in the liver and cholecystectomy clips noted. IMPRESSION: 1. Stable appearance of 4 cm ectatic/borderline aneurysmal change of the ascending thoracic aorta with no obvious interval change since 2022 on this noncontrast exam. 2. Interval development of 50% anterior compression fracture of T7. Patient has also undergone anterior fusion in the cervical thoracic junction. 3. Incidental note of moderate to severe degenerative changes of the liver. Other findings as above. Reviewed, dictated and finalized at location A. ICE ORDER DISPATCHER CHIEF IMPRESSION: 1. Stable appearance of 4 cm ectatic/borderline aneurysmal change of the ascend ing thoracic aorta with no obvious interval change since [address] exam. 2. Interval development of 50% anterior compression fracture of T7. Patient has also undergone anterior fusion in the cervical thoracic junction. 3. Incidental note of moderate to severe degenerative changes of the liver. Oth er findings as above.
== END 2025-01-21 09:33 | disposition home or self-care (01) ==
LOC: MICIMG 09:33
PROVIDERS: PCP Internal Medicine
DX: I71.21 Aneurysm of the ascending aorta, without rupture (principal); S22.060D Wedge compression fracture of T7-T8 vertebra, subsequent encounter for fracture with routine healing; X58.XXXD Exposure to other specified factors, subsequent encounter
CPT/HCPCS: 71250